=== PATIENT | male | born 1935 | race Caucasian/White ===

== ENCOUNTER → 2018-07-25 03:04 | Emergency (ER) | payer MEDICARE, OTHER ==
[~2018-07-25 03:04] MED LIST: Silver Nitrate/Potassium Nitr* 1 EA STICK ONE; Silver Nitrate/Potassium Nitr* 1 EA STICK TOPICAL ONE; cloNIDine TAB* 0.1 MG PO ONE; hydrALAZINE IV* 20 MG/ML VIAL IV SLOW PU ONE
--- NOTE | 2018-07-25 03:40 | ED ---
Complex/Multi-Sys Presentation - HPI Summary HPI Summary: This patient is an 82 year old M presenting to [facility] with a chief complaint of coughing up blood clots since 1 day ago. The patient notes that it looked like dense blood and not bloody sputum. The patient notes that 2 days ago fell walking up the stairs and hit his head. Patient denies LOC. The patient notes that he did not seek medical treatment following the injury. The patient rates the pain 0/10 in severity. Symptoms aggravated by nothing. Symptoms alleviated by nothing. Patient reports SOB with exertion, sore throat that has resolved, and ability to urine Patient takes Coumadin. Patient has hx of PE, atrial flutter, HTN, and chronic renal insufficiency. - History Of Current Complaint Chief Complaint: EDHeadInjury Time Seen by Provider: 07/25/18 03:17 Hx Obtained From: Patient Onset/Duration: Gradual Onset, Lasting Days - 1 day, Still Present Timing: Days - 1 day Aggravating Factor(s): nothing Alleviating Factor(s): nothing Associated Signs And Symptoms: Positive: SOB, Cough, Hemoptysis. Negative: Dysuria - Allergies/Home Medications Allergies/Adverse Reactions: Allergies Allergy/AdvReac Type Severity Reaction Status Date / Time No Known Allergies Allergy Verified 07/25/18 03:11 Home Medications: Home Medications Calcitriol 0.25 mcg PO DAILY 07/25/18 [History Confirmed 07/25/18] Carvedilol 1.5 tab PO BID 07/25/18 [History Confirmed 07/25/18] Sodium Citrate/Citric Acid* [Bicitra*] 15 ml PO PCHS 07/25/18 [History Confirmed 07/25/18] dilTIAZem HCl [Cartia Xt] 240 mg PO DAILY 07/25/18 [History Confirmed 07/25/18] PMH/Surg Hx/FS Hx/Imm Hx Endocrine/Hematology History: Denies: Hx Anemia, Hx Unexplained Bleeding Cardiovascular History: Reports: Hx Hypertension Denies: Hx Aneurysm, Hx Angina, Hx Angioplasty, Hx Auto Implanted Cardiovert Defib, Hx Cardiac Arrest, Hx Cardiomegaly, Hx Congenital Heart Disease, Hx Congestive Heart Failure, Hx Coronary Artery Disease, Hx Deep Vein Thrombosis, Hx Embolism, Hx Hypercholesterolemia, Hx Hypotension, Hx Pacemaker/ICD, Hx Peripheral Vascular Disease, Hx Rheumatic Fever, Hx Syncope, Hx Valvular Heart Disease Comment Only: Other Cardiovascular Problems/Disorders - A FLUTTER History: Reports: Other Problems/Disorders - CKD, BPH Musculoskeletal History: Reports: Hx Back Problems Sensory History: Reports: Hx Contacts or Glasses Denies: Hx Cataracts, Hx Eye Injury, Hx Eye Prosthesis, Hx Glaucoma, Hx Legally Blind, Hx Macular Degeneration, Hx Vision Problem, Hx Deafness, Hx Hearing Aid, Hx Hearing Problem Opthamlomology History: Reports: Hx Contacts or Glasses Denies: Hx Cataracts, Hx Eye Injury, Hx Eye Prosthesis, Hx Glaucoma, Hx Legally Blind, Hx Macular Degeneration, Hx Vision Problem Neurological History: Reports: Hx Migraine Denies: Hx Dementia, Hx Developmental Delay, Hx Headaches, Hx Nerve Disease, Hx Seizures, Hx Spinal Cord Injury, Hx Transient Ischemic Attacks (TIA) - Immunization History Date of Tetanus Vaccine: Date of Influenza Vaccine: up to date Infectious Disease History: No Infectious Disease History: Denies: Hx Clostridium Difficile, Hx Hepatitis, Hx Human Immunodeficiency Virus (HIV), Hx of Known/Suspected MRSA, Hx Shingles, Hx Tuberculosis, Hx Known/ Suspected VRE, Hx Known/Suspected VRSA, Traveled Outside the [place] in Last 30 Days - Family History Known Family History: Negative: Blood Disorder - Social History Alcohol Use: Occasionally Alcohol Amount: 3-4 glasses of wine per week Substance Use Type: Reports: None Smoking Status (MU): Never Smoked Tobacco Have You Smoked in the Last Year: No Review of Systems Negative: Fever Positive: Sore Throat Positive: Shortness Of Breath, Cough, Other - hemoptysis Negative: Vomiting Negative: dysuria All Other Systems Reviewed And Are Negative: Yes Physical Exam - Summary Physical Exam Summary: VITAL SIGNS: Reviewed. GENERAL: Patient is a well-developed and nourished MALE who is lying comfortable in the stretcher. Patient is not in any acute respiratory distress. HEAD AND FACE: No signs of trauma. No ecchymosis, hematomas or skull depressions. No sinus tenderness. EYES: PERRLA, EOMI x 2, No injected conjunctiva, no nystagmus. EARS: Hearing grossly intact. Ear canals and tympanic membranes are within normal limits. MOUTH: Oropharynx within normal limits. Superficial ulcer on the soft palate with very slight oozing of blood NECK: Supple, trachea is midline, no adenopathy, no JVD, no carotid bruit, no c- spine tenderness, neck with full ROM. CHEST: Symmetric, no tenderness at palpation LUNGS: Clear to auscultation bilaterally. No wheezing or crackles. CVS: Regular rate and rhythm, S1 and S2 present, no gallops appreciated. 2/6 systolic murmur over left sternal border ABDOMEN: Soft, non-tender. No signs of distention. No rebound no guarding, and no masses palpated. Bowel sounds are normal. EXTREMITIES: FROM in all major joints, no edema, no cyanosis or clubbing. NEURO: Alert and oriented x 3. No acute neurological deficits. Speech is normal and follows commands. GCS 15 SKIN: Dry and warm Triage Information Reviewed: Yes Vital Signs On Initial Exam: Initial Vitals Temp Pulse Resp BP Pulse Ox 98.1 F 68 16 177/82 98 07/25/18 03:05 07/25/18 03:05 07/25/18 03:05 07/25/18 03:05 07/25/18 03:05 Vital Signs Reviewed: Yes Diagnostics - Vital Signs Vital Signs Temp Pulse Resp BP Pulse Ox 07/25/18 03:05 98.1 F 68 16 177/82 98 - Laboratory Result Diagrams: 07/25/18 04:03 07/25/18 04:03 Lab Statement: Any lab studies that have been ordered have been reviewed, and results considered in the medical decision making process. - Radiology CXR Radiology Interpretation Completed By: ED Physician - Dr. Viramontes, pending official report Summary of Radiographic Findings: no acute process - CT CT Brain CT Interpretation Completed By: Radiologist Summary of CT Findings: Cerebral atrophy. Dr. Viramontes has reviewed this report. CT Maxillofacial CT Interpretation Completed By: Radiologist Summary of CT Findings: no acute fracture. Dr. Viramontes has reviewed this report. Complex Multi-Symp Course/Dx Course Of Treatment: This patient is an 82 year old M with hx of PE, atrial flutter, HTN, and chronic renal insufficiency presenting to [facility] with a chief complaint of coughing up blood clots since 1 day ago. The patient notes that it looked like dense blood and not bloody sputum. The patient notes that 2 days ago fell walking up the stairs and hit his head. Patient denies LOC. Patient reports SOB with exertion, sore throat that has resolved, and ability to urine Patient takes Coumadin. CXR reveals, per ED physician, no acute process. CT Brain reveals, per radiologist, cerebral atrophy. CT Maxillofacial reveals, per radiologist, no acute fracture. ED physician has reviewed these radiology reports. Labs and UA obtained. In the ED course the patient was given Catapres, Apresoline, and silver nitrate. Patient is anemia however more or less he is at his baseline. Patient had a small ulcer to his soft palate which I cauterized with silver nitrate. Unable to get CT with IV contrast due to patients kidney condition. Patient will be discharged home with follow up from Dr. Michel, [employer], concerning his anemia, CT, and possible tx with Epogen. Patient will contact him today. The patient is agreeable with this plan. Dx chronic renal insufficiency and hemoptysis. - Diagnoses Provider Diagnoses: Chronic renal insufficiency, Hemoptysis Discharge - Sign-Out/Discharge Documenting (check all that apply): Patient Departure - discharge home Patient Received Moderate/Deep Sedation with Procedure: No - Discharge Plan Condition: Stable Disposition: HOME Patient Education Materials: Hemoptysis (ED) Referrals: Kizzy Villatoro MD [Primary Care Provider] - Kahlil Michel MD [Medical Doctor] - 1 Day Additional Instructions: Follow up with Dr. Michel in 1-2 days. Return to the emergency department recurrence of coughing up blood. - Attestation Statements Document Initiated by Scribe: Yes Documenting Scribe: Daisy Angel Provider For Whom Silva is Documenting (Include Credential): Brandon Viramontes MD Scribe Attestation: Daisy Starks, scribed for Brandon Viramontes MD on 07/25/18 at 0550. Status of Scribe Document: Ready
[2018-07-25 04:12] LABS: ABS Basophils 0.1 10^3/ul (0-0.2); ABS Eosinophils 0.4 10^3/ul (0-0.6); ABS Lymphocytes 1.2 10^3/ul (1.0-4.8); ABS Monocytes 0.8 10^3/ul (0-0.8); ABS Neutrophils 4.1 10^3/ul (1.5-7.7); ABS Nucleated RBC 0 10^3/ul; Eosinophil % 6.7 %; Hematocrit 21 % (36-46); Hemoglobin 6.9 g/dL (14.0-18.0); Lymphocyte % 18.5 %; Mean Corpuscular HGB Conc 33 g/dL (31-36); Mean Corpuscular Hemoglobin 31 pg (27-31); Mean Corpuscular Volume 94 fL (80-94); Nucleated Red Blood Cells % 0; Platelet Count 174 10^3/uL (150-450); Red Blood Count 2.24 10^6 /uL (4.18-5.48); Red Cell Distribution Width 15 % (10.5-15); White Blood Count 6.7 10^3/uL (3.5-10.8)
[2018-07-25 04:29] LABS: Albumin 2.5 g/dL (3.2-5.2); Albumin/Globulin Ratio 0.8 (1-3); BUN/Creatinine Ratio 7.8 (8-20); Calcium 7.8 mg/dL (8.6-10.3); EGFR African American 8.2 (>60); EGFR Non-African American 6.8 (>60); Globulin 3.1 g/dL (2-4); Magnesium 1.9 mg/dL (1.9-2.7); Potassium 4.4 mmol/L (3.5-5.0); Total Bilirubin 0.2 mg/dL (0.2-1.0); Total Protein 5.6 g/dL (6.4-8.9)
[2018-07-25 04:45] LABS: Activated Partial Thrombo Time 44.6 seconds (26.0-36.3); INR 2.1 (0.77-1.02)
[2018-07-25 06:10] VITALS: BP 141/66
== END | disposition home or self-care (01) ==
LOC: ED 03:04
DX: R04.2 Hemoptysis (principal); I12.9 Hypertensive chronic kidney disease with stage 1 through stage 4 chronic kidney disease, or unspecified chronic kidney disease; N18.9 Chronic kidney disease, unspecified; Z86.711 Personal history of pulmonary embolism
CPT/HCPCS: 36415; 70450; 70486; 71045; 80053; 83735; 85025; 85610; 85730; 96374; 96375; 96376; 99284; A9270-GY; J0360

== ENCOUNTER → 2018-11-05 10:49 | Day surgery (SDC) | payer MEDICARE, OTHER ==
--- NOTE | 2018-09-12 17:21 | HP ---
CC: Dr. Michel; [facility] * ADMISSION HISTORY AND PHYSICAL: DATE OF ADMISSION: 09/17/18 ATTENDING SURGEON: Dr. Shahid Atkins * (OSVALDO Hull dictating). CHIEF COMPLAINT: End-stage renal disease. HISTORY OF PRESENT ILLNESS: This is an 82-year-old male who has had gradual decline in renal function over the past 8 to 9 years. This has accelerated in the past year or so with recent symptomatology including dyspnea on exertion and increase in edema. See separate consult from Dr. Michel. He was referred for consideration of peritoneal dialysis catheter placement. He was seen by Dr. Atkins on 09/08/18. He has not had any prior abdominal surgeries. Dr. Atkins has discussed with him the indications, risks, benefits, and alternatives of the procedure and he would like to proceed as scheduled with laparoscopic placement of peritoneal dialysis catheter. PAST MEDICAL HISTORY: Chronic kidney disease (stage 5), chronic atrial flutter with associated PE approximately 5 years ago (on chronic anticoagulation), hypertension, chronic anemia. PAST SURGICAL HISTORY: His only past surgical procedure was wisdom teeth extraction. CURRENT MEDICATIONS: 1. Lasix 40 mg once daily. 2. Cytra-2 oral solution 500-334/5 mL, 15 mL t.i.d. 3. Coumadin 2.5 mg 1 tablet q. Saturday, Saturday and Saturday; one half tablet all other days. 4. Diltiazem extended release 180 mg once daily. 5. Carvedilol 6.25 mg b.i.d. 6. Rosuvastatin 5 mg daily. 7. Amlodipine 10 mg daily. 8. Calcitriol 0.25 mcg daily. 9. Aranesp injection q. month. DRUG ALLERGIES: None known. FAMILY HISTORY: Negative for anesthesia problems, bleeding, or clotting disorders. SOCIAL HISTORY: The patient lives with his daughter, who accompanies him today. He denies use of tobacco and drinks between 2-3 drinks per month, though none of late. REVIEW OF SYSTEMS: General: No recent constitutional symptoms or acute illnesses other than described above. See also Dr. Michel's consult note and Dr. Mitchell's most recent attached note. HEENT: No recent problems or changes noted. Cardiovascular: See Dr. Mitchell's note. He was scheduled for followup echocardiogram and Holter monitor, but because of scheduling conflicts, these were cancelled. Respiratory: Dyspnea on exertion, i.e., after one flight of stairs. He is able to walk on a level for 1 block without significant dyspnea. GI: No problems reported. He did undergo Cologuard testing within the past year. : As above. He has nocturia x3. He is followed by Dr. Anderson. Endocrine: No diabetes or thyroid dysfunction. PHYSICAL EXAMINATION GENERAL: Well-nourished, mildly obese male, in no acute distress. VITAL SIGNS: Height 72 inches, weight 205 pounds. Temperature 98.1, blood pressure 130/50, pulse 84, respirations 16. HEENT: Pupils are equal and round, reactive. EOMs intact. Mild conjunctival pallor. Oropharynx: Teeth in good repair. No intraoral lesions. NECK: No lymphadenopathy, thyromegaly, or masses. LUNGS: Upper medrano clear to auscultation as well as left base. There are decreased breath sounds at the right base (most recent chest x-ray per Dr. Mitchell's note was mid August showing some atelectasis versus scarring). HEART: Regular rate and rhythm. There is a soft systolic murmur heard best at both left upper and right sternal borders likely most consistent with aortic stenosis (see Dr. Mitchell's notes). ABDOMEN: Mildly obese, soft, nontender to palpation. No palpable masses or organomegaly. GENITALIA AND RECTAL: Not done per Dr. Atkins's note. No inguinal hernias. BACK: No spinous process or CVA tenderness. EXTREMITIES: He does have some edema of the left hand and both lower extremities 1 to 2+, right greater than left. I did not check distal pulses. NEUROLOGICAL: Grossly intact. SKIN: Warm and dry. No suspicious rashes or lesions noted. See also below for extremities. IMPRESSION: End-stage renal disease. PLAN: Laparoscopic placement of peritoneal dialysis catheter. OSVALDO HULL [id number]/[facility] #: [id number] MTDRodney
[~2018-11-05 10:49] MED LIST changes: +Atracurium* 10 MG/ML 10 ML VIAL ONE; +Buffered Lidocaine 1% SYRIN* 1 ML/SYRINGE INTRADERM ONE; +Bupivacaine 0.25% EPI 200,000* 30 ML SDV ONE; +Dexamethasone IV* 4 MG/ML 1 ML (4 MG) ONE; +Glycopyrrolate IV* 0.2 MG/ML 1 ML VIAL ONE; +Heparin DIALYSIS ONLY(*) 1,000 UNITS/ML VIAL ONE; +Lactated Ringers 1000 ML Bag* 1,000 ML IV SCH; +Ondansetron INJ* 2 MG/ML VIAL ONE; +Propofol* 10 MG/ML 20 ML BTL ONE; -Silver Nitrate/Potassium Nitr* 1 EA STICK ONE; -Silver Nitrate/Potassium Nitr* 1 EA STICK TOPICAL ONE; +ceFAZolin 2 GM in NS PREMIX(*) 2 GM/100 ML BAG IVPB ONE; -cloNIDine TAB* 0.1 MG PO ONE; +fentaNYL* 50 MCG/ML 2 ML VIAL (100 MCG VIAL) ONE; -hydrALAZINE IV* 20 MG/ML VIAL IV SLOW PU ONE
[2018-11-05 18:35] VITALS: BP 181/76
--- NOTE | 2018-11-05 23:17 | OP ---
CC: Dr. Kahlil Michel; Lexa Garner * DATE OF OPERATION: 11/05/18 - [facility] DATE OF : 35 SURGEON: Shahid Atkins MD VISUAL ARTIST: , PA Student. ANESTHESIOLOGIST: Dr. Cronin. ANESTHESIA: General. PRE-OP DIAGNOSIS: End-stage renal disease. POST-OP DIAGNOSIS: End-stage renal disease. OPERATIVE PROCEDURE: Laparoscopic placement of peritoneal dialysis catheter, omentopexy. SPECIMEN: None. TUBING: A 62 cm Curl Cath Covidien catheter inserted. ESTIMATED BLOOD LOSS: Minimal. FLUIDS: Minimal crystalloid fluid given. DESCRIPTION OF PROCEDURE: The patient was identified in the preoperative area. A consent was signed. The patient was marked including the belt line and the planned exit site for the dialysis catheter. He was then taken to the operating room, placed on the operating table in the supine position. Preoperative antibiotics were given. Sequential devices were placed on bilateral extremities. General anesthesia was induced. The patient's abdomen was prepped and draped in a standard surgical fashion and a time-out was performed. An incision was made at the Cho point in the left upper quadrant. This was deepened down to the anterior fascia, which was elevated and a Veress needle inserted into the abdominal cavity, which was then allowed to insufflate to a pressure of 15 mmHg. The patient tolerated the insufflation well. An 8 mm Optiview trocar was then inserted and Veress needle was removed. Review of the abdomen showed scant free fluid in the pelvis. Small bowel appeared unremarkable. The omentum was large and extended towards the pelvis and I felt this would be best to do omentopexy and this was performed with a 0- Polysorb suture using an Endoclose device at the right upper quadrant. Next, with our 5 mm trocar already in the left lower quadrant, we then placed the tubing through the 8-mm trocar into the abdomen, this was 62 cm Curl cath. We then placed the working end into the deep pelvis and tracked the 5-mm trocar along the left rectus muscle, grasped the tubing and then brought it out through this incision, taking care that the both cuffs were in the abdominal wall with the distal cuff just above the peritoneum. Next, the tubing was then tunneled superiorly and inferiorly through the chosen site where the 5 mm trocar had also been inserted. This trocar was of course removed with the catheter in place. We then hooked it up to the dialysate, which flowed freely and also exited freely. This was nonbloody. The abdomen was allowed to collapse. Trocars were removed under direct vision and we closed the incisions with 4-0 Monocryl subcuticular sutures, followed by Steri- Strips and sterile dressing. The patient tolerated the procedure well and was transferred to the PACU in stable condition. [id number]/[facility] #: [id number] MTDD
== END | disposition home or self-care (01) ==
LOC: OR 10:49
PROVIDERS: ATTEND Surgery
DX: N18.6 End stage renal disease (principal); I48.92 Unspecified atrial flutter; Z86.711 Personal history of pulmonary embolism; Z79.01 Long term (current) use of anticoagulants; I10 Essential (primary) hypertension; D64.9 Anemia, unspecified; E78.5 Hyperlipidemia, unspecified
CPT/HCPCS: J0690; J1100; J1644; J2405; J2704; J3010

== ENCOUNTER 2019-06-10 16:33 | Inpatient (IN) | payer MEDICARE, OTHER ==
--- NOTE | 2019-06-10 19:05 | ED ---
GI/ HPI - HPI Summary HPI Summary: 83 year old MF arriving from dialysis center complains of worsening fatigue, weakness, shortness of breath since Dec 2018. He has been receiving peritoneal dialysis at home since Dec 2018. Hx low Hgb values. Usually Hgb around 9 but it has been decreasing. Has had blood transfusion done in the past. Hx upper GI bleed. Had endoscopy done Saturday06/08/[address] Trinh which showed bleeding in stomach lining. Was put on omeprazole. Had positive occult stool then too. No visible blood in stools. Symptoms aggravated by exertion. Symptoms alleviated by nothing. Medications reviewed. On Coumadin for PE. - History of Current Complaint Chief Complaint: EDGIBleed Time Seen by Provider: 06/10/19 18:49 Stated Complaint: LOW HEMOGLOBIN PER PT Hx Obtained From: Patient Onset/Duration: Started Weeks Ago - Dec 2018, Still Present Timing: Intermittent Current Severity: None Pain Intensity: 0 Aggravating Factor(s): Walking/Exertion Alleviating Factor(s): Nothing - Allergy/Home Medications Allergies/Adverse Reactions: Allergies Allergy/AdvReac Type Severity Reaction Status Date / Time No Known Allergies Allergy Verified 06/10/19 16:39 Home Medications: Home Medications Rosuvastatin (NF) [Crestor (NF)] 5 mg PO BEDTIME 09/10/18 [History Confirmed 07/26] Warfarin Sodium 2.5 mg PO 1700 09/10/18 [History Confirmed 06/10/19] Warfarin TAB(*) [Coumadin TAB(*)] 1.75 mg PO 1700 09/10/18 [History Confirmed ] dilTIAZem HCl [Cartia Xt] 180 mg PO QAM 10/31/18 [History Confirmed 06/10/19] Metoprolol Succinate XL TAB* [Toprol XL TAB*] 50 mg PO DAILY 06/08/19 [History Confirmed 06/10/19] Omeprazole 40 mg PO Q24HR 06/10/19 [History Confirmed 06/10/19] PMH/Surg Hx/FS Hx/Imm Hx Endocrine/Hematology History: Denies: Hx Anemia, Hx Unexplained Bleeding Cardiovascular History: Reports: Hx Hypertension - CONTROLLED, Other Cardiovascular Problems/Disorders - A FLUTTER Denies: Hx Aneurysm, Hx Angina, Hx Angioplasty, Hx Auto Implanted Cardiovert Defib, Hx Cardiac Arrest, Hx Cardiomegaly, Hx Congenital Heart Disease, Hx Congestive Heart Failure, Hx Coronary Artery Disease, Hx Deep Vein Thrombosis, Hx Embolism, Hx Hypercholesterolemia, Hx Hypotension, Hx Pacemaker/ICD, Hx Peripheral Vascular Disease, Hx Rheumatic Fever, Hx Syncope, Hx Valvular Heart Disease Respiratory History: Reports: Hx Pulmonary Embolism History: Reports: Other Problems/Disorders - CKD, BPH Musculoskeletal History: Reports: Hx Back Problems Sensory History: Reports: Hx Contacts or Glasses - GLASSES Denies: Hx Cataracts, Hx Eye Injury, Hx Eye Prosthesis, Hx Glaucoma, Hx Legally Blind, Hx Macular Degeneration, Hx Vision Problem, Hx Deafness, Hx Hearing Aid, Hx Hearing Problem Opthamlomology History: Reports: Hx Contacts or Glasses - GLASSES Denies: Hx Cataracts, Hx Eye Injury, Hx Eye Prosthesis, Hx Glaucoma, Hx Legally Blind, Hx Macular Degeneration, Hx Vision Problem Neurological History: Denies: Hx Dementia, Hx Developmental Delay, Hx Headaches, Hx Migraine, Hx Nerve Disease, Hx Seizures, Hx Spinal Cord Injury, Hx Transient Ischemic Attacks (TIA) Psychiatric History: Reports: Hx Anxiety - Cancer History Hx Chemotherapy: No - Surgical History Surgery Procedure, Year, and Place: wisdom teeth Hx Anesthesia Reactions: No - Immunization History Date of Tetanus Vaccine: unknown Date of Influenza Vaccine: up to date Infectious Disease History: No Infectious Disease History: Denies: Hx Clostridium Difficile, Hx Hepatitis, Hx Human Immunodeficiency Virus (HIV), Hx of Known/Suspected MRSA, Hx Shingles, Hx Tuberculosis, Hx Known/ Suspected VRE, Hx Known/Suspected VRSA, Traveled Outside the [place] in Last 30 Days - Family History Known Family History: Positive: Other - NEG: colon CA - Social History Alcohol Use: Occasionally Alcohol Amount: 3-4 glasses of wine per week Substance Use Type: Reports: None Hx Tobacco Use: No Smoking Status (MU): Never Smoked Tobacco Have You Smoked in the Last Year: No Review of Systems Positive: Fatigue Positive: Shortness Of Breath Gastrointestinal: Negative - blood in stool Positive: Weakness All Other Systems Reviewed And Are Negative: Yes Physical Exam - Summary Physical Exam Summary: Constitutional: Well-developed, Well-nourished, Alert. (-) Distressed Skin: Warm, Dry HENT: Normocephalic; Atraumatic Eyes: Pale conjunctiva Neck: Musculoskeletal ROM normal neck. (-) JVD, (-) Stridor, (-) Nuchal rigidity Cardio: Rhythm regular, rate normal, Heart sounds normal; Intact distal pulses; Radial pulses are 2+ and symmetric. Systolic ejection murmur Pulmonary/Chest wall: Effort normal. (-) Respiratory distress, (-) Wheezes, (-) Rales Abd: Soft, (-) tenderness, (-) Distension, (-) Guarding, (-) Rebound Musculoskeletal: (-) Edema Lymph: (-) Cervical adenopathy Neuro: Alert, Oriented x3 Psych: Mood and affect Normal Triage Information Reviewed: Yes Vital Signs On Initial Exam: Initial Vitals Temp Pulse Resp BP Pulse Ox 97.8 F 71 18 144/53 95 06/10/19 16:36 06/10/19 16:36 06/10/19 16:36 06/10/19 16:36 06/10/19 16:36 Vital Signs Reviewed: Yes Procedures - Sedation Patient Received Moderate/Deep Sedation with Procedure: No Diagnostics - Vital Signs Vital Signs Temp Pulse Resp BP Pulse Ox 06/10/19 18:08 98.4 F 72 16 151/66 95 06/10/19 16:36 97.8 F 71 18 144/53 95 - Laboratory Result Diagrams: 06/11/19 17:58 06/11/19 05:44 Lab Statement: Any lab studies that have been ordered have been reviewed, and results considered in the medical decision making process. Re-Evaluation - Re-Evaluation First Eval Re-Evaluation Time: 19:23 Comment: aware of Hgb 6.1 Second Eval Re-Evaluation Time: 19:31 Comment: patient agrees to admission GIGU Course/Dx - Course Course Of Treatment: 83 y/o male w ESRD on home PD p/w fatigue and anemia. - Hb 6.1, baseline around 9. No active bleeding. Recent workup and endoscopy w upper GIB. Type and screen sent, can be transfused one unit overnight w dialysis tomorrow as per nephrology who discussed w admitting team - Diagnoses Provider Diagnoses: Anemia, ESRD (end stage renal disease) - Physician Notifications Discussed Care Of Patient With: Theodore Bond Time Discussed With Above Provider: 19:23 Instructed by Provider To: Admit As Inpatient Discharge ED - Sign-Out/Discharge Documenting (check all that apply): Patient Departure - Discharge Plan Condition: Stable Disposition: ADMITTED TO [facility] - Billing Disposition and Condition Condition: STABLE Disposition: Admitted to [facility] - Attestation Statements Document Initiated by Jonnyibsamantha: Yes Documenting Scribe: Shaylee Patterson Provider For Whom Silva is Documenting (Include Credential): Narcisa Arriola MD Scribe Attestation: IShaylee, scribed for Narcisa Arriola MD on 06/11/19 at 2042. Scribe Documentation Reviewed: Yes Provider Attestation: The documentation as recorded by the jonnyibShaylee singh accurately reflects the service I personally performed and the decisions made by , Narcisa Arriola MD Status of Scribe Document: Viewed
[2019-06-10 19:21] LABS: ABS Basophils 0.1 10^3/ul (0-0.2); ABS Eosinophils 0.3 10^3/ul (0-0.6); ABS Lymphocytes 1.4 10^3/ul (1.0-4.8); ABS Neutrophils 5.9 10^3/ul (1.5-7.7); Eosinophil % 3.2 %; Hematocrit 18 % (42-52); Hemoglobin 6.1 g/dL (14.0-18.0); Lymphocyte % 16.1 %; Mean Corpuscular HGB Conc 34 g/dL (31-36); Mean Corpuscular Hemoglobin 33 pg (27-31); Mean Corpuscular Volume 96 fL (80-94); Mean Platelet Volume 7.7 fL (7.4-10.4); Platelet Count 264 10^3/uL (150-450); Red Blood Count 1.86 10^6 /uL (4.18-5.48); Red Cell Distribution Width 16 % (10-15); White Blood Count 8.7 10^3/uL (3.5-10.8)
[2019-06-10 19:26] LABS: Albumin 3.2 g/dL (3.2-5.2); Albumin/Globulin Ratio 0.8 (1-3); Calcium 8.6 mg/dL (8.6-10.3); EGFR African American 5.3 (>60); EGFR Non-African American 4.4 (>60); Globulin 3.8 g/dL (2-4); INR 2.39 (0.82-1.09); Potassium 4.4 mmol/L (3.5-5.0); Total Bilirubin 0.3 mg/dL (0.2-1.0)
[2019-06-10] MEDS ORDERED: Acetaminophen TAB* 325 MG PO PRN (20:00)
[2019-06-10] MEDS: Pantoprazole IV* 40 MG IV SCH (21:51)
[2019-06-10] MEDS: Atorvastatin* 10 MG TAB PO SCH (21:51)
--- NOTE | 2019-06-10 22:13 | HP ---
CC: Dr. Sadler; Dr. Lockwood; Dr. Villatoro* HISTORY AND PHYSICAL: DATE OF ADMISSION: 06/10/19 PROVIDER: Yvonne Thibodeaux NP. PRIMARY CARE PROVIDER: Dr. Villatoro. ATTENDING PHYSICIAN WHILE IN THE HOSPITAL: Dr. Theodore Bond* (dictated by Yvonne Thibodeaux NP). CHIEF COMPLAINT: Anemia. HISTORY OF PRESENT ILLNESS: Mr. Vegas is an 83-year-old male with past medical history significant for end-stage renal disease, on peritoneal dialysis, history of A-flutter, history of pulmonary embolism 5 years ago, chronic anemia , on chronic Coumadin, who presented to the emergency room from a routine appointment with dialysis due to low H and H. The patient reports that on Saturday he had an upper endoscopy done by Dr. Trinh. At that time, it was noted to have bleeding in the stomach lining. At that time, he was started on omeprazole 40 mg p.o. daily. The patient reports over the past couple of days he has had progressively worsening shortness of breath and lightheadedness associated with standing and walking. The patient reports that he will walk a short distance and will have to sit down and catch his breath and it takes a few minutes for his symptoms to resolve before he can resume his activities. The patient reports that today while at dialysis routine followup, he mentioned these symptoms. They did lab work and found him to have a hemoglobin of 6 and 18. Due to the those findings, he was sent to the emergency room for further evaluation. The patient does report that he has had some dark stools over the past 1 to 2 days but not consistent. He denies any bright red blood from the rectum. He denies any chest pain. He denies any recent fever, chills, unintended weight loss. Denies any cough, hemoptysis. He denies any nausea, vomiting, diarrhea, abdominal pain, hematuria, or dysuria. He denies any focal weakness, sensory loss, dysphagia, arthralgias, myalgias, rashes, lesions, open sores. While in the emergency room, the patient had routine lab work drawn. He was found to have an H and H of 6.1 and 18. Due to these findings, Hospital Medicine was asked to see and evaluate him for admission. PAST MEDICAL HISTORY: Significant for end-stage renal disease, on peritoneal dialysis; atrial flutter, on chronic Coumadin; history of pulmonary embolism, again on chronic Coumadin therapy; history of hypertension; history of anemia. PAST SURGICAL HISTORY: Significant for insertion of peritoneal dialysis catheter, wisdom tooth extraction. HOME MEDICATIONS: Include: 1. Diltiazem 180 mg p.o. daily. 2. Omeprazole 40 mg p.o. daily. 3. Coumadin 1.75 mg alternating with 2.5 mg. 4. Rosuvastatin 5 mg p.o. at bedtime. 5. Metoprolol 50 mg p.o. daily. 6. Sevelamer carbonate 800 mg 2 tablets with meals. ALLERGIES: No known drug allergies. FAMILY HISTORY: No reported history of coronary artery disease or diabetes. Mother with lymph node type cancer, unknown exact type. Father with melanoma with metastasis to the lungs per the patient. SOCIAL HISTORY: The patient denies any tobacco, alcohol, or illicit drug use. He is . He lives with his daughter. Surrogate decision maker in the event he is unable to make his own decision is his daughter. He is a full code. REVIEW OF SYSTEMS: A 14-point review of systems was completed. All pertinent positives were mentioned in the HPI. PHYSICAL EXAMINATION GENERAL: At this time, Mr. Vegas is alert and oriented, resting on the stretcher in the emergency room. He is in no acute distress. His color is sallow. VITAL SIGNS: Blood pressure was 151/66, heart rate is 72, respirations 16, O2 saturation 95%, temperature is 98.4. HEENT: Head is atraumatic, normocephalic. Eyes: EOMs are intact. Sclerae anicteric and not pale. Oral mucosa is moist. NECK: Supple. LUNGS: Clear to auscultation bilaterally. No wheezes, rales, or rhonchi. CARDIAC: S1, S2. Regular rate and rhythm. No rubs or gallops. ABDOMEN: Soft and nontender. Bowel sounds are present x4. EXTREMITIES: He is able to move all 4 extremities. There is no clubbing or cyanosis. NEUROLOGIC: He is awake, alert, oriented x3. Speech is clear. Thought process is intact. SKIN: Intact. DIAGNOSTIC STUDIES/LAB DATA: WBCs are 8.7, RBCs 1.86, hemoglobin 6.1, hematocrit is 18, platelet count is 264. INR is 2.39. Sodium 138, potassium 4.4, chloride 99, carbon dioxide was 24, anion gap of 15, BUN 67, creatinine 11.16, glucose was 106, calcium 8.6. ASTs were 13, ALTs were 11, alkaline phosphatase was 60. ASSESSMENT AND PLAN: Mr. Vegas is an 83-year-old male with a past medical history significant for end-stage renal disease, on hemodialysis, history of atrial flutter and pulmonary embolism, on chronic anticoagulation with Coumadin , hypertension, history of chronic anemia, who presented to the emergency room with worsening anemia sent from routine appointment at dialysis. The patient will be admitted under observation for: 1. Profound anemia: The patient does have an H and H of 6.1 and 20. The patient has had a recent upper endoscopy on 06/08/19. At that time, he was found to have bleeding in the stomach and was started on omeprazole 40 mg p.o. daily. The patient's H and H today is 6.1 and 18. I will give him a unit of packed red blood cells. I did perform a rectal exam, which had medium brown stool. No bright red blood. I will send a stool for occult. He will be placed on Protonix 40 mg IV twice daily. I spoke to Dr. Lockwood from Gastroenterology. The patient will be placed on clear liquids, nothing by mouth after midnight for repeat upper endoscopy tomorrow. We will repeat a CBC in the a.m. The patient can have a second unit of packed red blood cells after he is able to start peritoneal dialysis in the morning per Dr. Sadler. 2. End-stage renal disease: The patient does do daily peritoneal dialysis. I did speak to Dr. Sadler from Nephrology, who has agreed with transfusing 1 unit of packed red blood cells overnight slowly over 4 hours and then we will give a second unit in the morning after the patient is able to start peritoneal dialysis. Dr. Sadler says someone from dialysis will be over to hook Mr. Vegas up to his peritoneal dialysis tomorrow morning. 3. History of atrial flutter: The patient should continue on Cardizem and metoprolol as previously prescribed. I am going to hold his Coumadin due to his bleeding and anemia. I would recommend a consultation to cardiology in regards to his anticoagulation as the patient continues to have upper gastrointestinal bleeding. 4. Hypertension: The patient should continue on Cardizem and metoprolol as previously prescribed. 5. FEN: He can have a clear liquid diet and he will be nothing by mouth after midnight. 6. Code status: He is a full code. 7. DVT prophylaxis: I will place him on sequential compression devices. TIME SPENT: Time spent on this admission was 60 minutes, greater than half that time was spent at the bedside reviewing events leading thus far to his hospitalization, performing physical exam, and reviewing my plan of care. I have discussed this with my attending, Dr. Theodore Bond; he is in agreement with my plan. YVONNE THIBODEAUX, MARLO [id number]/[facility] #: [id number] [facility]
[2019-06-11 06:25] LABS: ABS Basophils 0.1 10^3/ul (0-0.2); ABS Eosinophils 0.3 10^3/ul (0-0.6); ABS Lymphocytes 1.2 10^3/ul (1.0-4.8); ABS Monocytes 0.9 10^3/ul (0-0.8); ABS Neutrophils 4.1 10^3/ul (1.5-7.7); Eosinophil % 5.3 %; Hematocrit 18 % (42-52); Hemoglobin 6.1 g/dL (14.0-18.0); Lymphocyte % 17.6 %; Mean Corpuscular HGB Conc 35 g/dL (31-36); Mean Corpuscular Hemoglobin 32 pg (27-31); Mean Corpuscular Volume 93 fL (80-94); Mean Platelet Volume 7.9 fL (7.4-10.4); Platelet Count 187 10^3/uL (150-450); Red Blood Count 1.92 10^6 /uL (4.18-5.48); Red Cell Distribution Width 17 % (10-15); White Blood Count 6.6 10^3/uL (3.5-10.8)
[2019-06-11 06:43] LABS: BUN/Creatinine Ratio 6.1 (8-20); Calcium 8.1 mg/dL (8.6-10.3); EGFR African American 5.1 (>60); EGFR Non-African American 4.2 (>60); Potassium 4.8 mmol/L (3.5-5.0)
[2019-06-11] MEDS: Diltiazem CD CAP* 180 MG PO SCH ×2 (09:08→17:45)
[2019-06-11] MEDS: Metoprolol Succinate XL TAB* 50 MG PO SCH ×2 (09:08→17:45)
[2019-06-11] MEDS: Pantoprazole IV* 40 MG IV SCH ×2 (09:08→22:03)
--- NOTE | 2019-06-11 11:35 | PN ---
Subjective Date of Service: 06/11/19 Interval History: Patient has walked to the bathroom today and denies dizziness/lightheadedness during that time. Has had a BM which he describes as black. Denies chest pain, difficulty breathing, abd pain, nausea, fever/chills. Tells me he has never had indigestion or sxs of acid reflux. Objective Active Medications: Acetaminophen (Tylenol Tab*) 650 mg PO Q4H PRN PRN Reason: MILD PAIN or TEMP > 100.4 Atorvastatin Calcium (Lipitor*) 10 mg PO BEDTIME [facility]; Protocol Last Admin: 06/10/19 21:51 Dose: 10 mg Diltiazem HCl (Cardizem Cd Cap*) 180 mg PO QAM [facility] Last Admin: 06/11/19 09:08 Dose: 180 mg Metoprolol Succinate (Toprol Xl Tab*) 50 mg PO DAILY [facility] Last Admin: 06/11/19 09:08 Dose: 50 mg Pantoprazole Sodium (Protonix Iv*) 40 mg IV Q12H [facility] Last Admin: 06/11/19 09:08 Dose: 40 mg Vital Signs - 8 hr 06/11/19 06/11/19 03:32 07:45 Temperature 98.3 F 98.2 F Pulse Rate 69 72 Respiratory 16 16 Rate Blood Pressure 114/43 133/47 (mmHg) O2 Sat by Pulse 96 98 Oximetry Oxygen Devices in Use Now: None Appearance: Elderly white male, laying in hospital bed, appearing comfortable and in NAD Eyes: No Scleral Icterus, - - PERRL Ears/Nose/Mouth/Throat: Mucous Membranes Moist Neck: Trachea Midline Respiratory: Symmetrical Chest Expansion and Respiratory Effort, Clear to Auscultation Cardiovascular: RRR, - - systolic murmur grade 2-3 Abdominal: NL Sounds; No Tenderness; No Distention, - - PD site with clean/dry bandage in LLQ Extremities: No Edema, No Clubbing, Cyanosis Skin: No Rash or Ulcers Neurological: Alert and Oriented x 3 Result Diagrams: 06/11/19 17:58 06/11/19 05:44 Microbiology and Other Data: Microbiology 06/10/19 20:30 Stool Occult Blood (YUAN) - Final Stool Stool Occult Blood (YUAN) - Final Assess/Plan/Problems-Billing Assessment: 83 yo white male with PMHx ESRD (on PD since Dec 2018), atrai flutter (on coumadin), hx of PE, and HTN who presents due to anemia on routine blood work. - Patient Problems (1) UGIB (upper gastrointestinal bleed) Current Visit: Yes Status: Acute Code(s): K92.2 - GASTROINTESTINAL HEMORRHAGE, UNSPECIFIED SNOMED Code(s): 78788511 Comment: -had EGD on 06/08/2019 which demonstrated old and fresh blood at gastric lining, started on po PPI by Dr. Trinh -anemia continues to downtrend, did not improve after 1U PRBC yesterday (Hgb remained 6.1); transfusing additional unit PRBC today -repeat EGD today, appreciate GI consult, Dr. Block recs 1U FFP due to bleeding and elevated INR -continue IV protonix BID -monitor H&H (2) Acute blood loss anemia Current Visit: Yes Status: Acute Code(s): D62 - ACUTE POSTHEMORRHAGIC ANEMIA SNOMED Code(s): 462264854 Comment: -05/10 UGIB -received 1U PRBC at admission, ordering additional today -further mgmt as above (3) ESRD (end stage renal disease) Current Visit: Yes Status: Acute Code(s): N18.6 - END STAGE RENAL DISEASE SNOMED Code(s): 90495419 Comment: -on PD since dec 2018, will continue inpatient -per JARED Gotti to start transfusion prior to PD (planning on PD after transfusion completed) (4) Atrial flutter Current Visit: Yes Status: Acute Code(s): I48.92 - UNSPECIFIED ATRIAL FLUTTER SNOMED Code(s): 9727619 Comment: -on coumadin at home, held in setting of GIB -continue diltiazem and metoprolol -rate controlled -INR has trended up despite holding coumadin. Considering continued bleeding, will reverse with po vitamin K (5) HTN (hypertension) Current Visit: Yes Status: Acute Code(s): I10 - ESSENTIAL (PRIMARY) HYPERTENSION SNOMED Code(s): 54652046 Comment: -continue metoprolol and diltiazem -normotensive (6) History of pulmonary embolism Current Visit: Yes Status: Acute Code(s): Z86.711 - PERSONAL HISTORY OF PULMONARY EMBOLISM SNOMED Code(s): 413206371 Comment: -on coumadin at home, mgmt as above -history of one PE several years ago (7) Hyperlipidemia Current Visit: Yes Status: Acute Code(s): E78.5 - HYPERLIPIDEMIA, UNSPECIFIED SNOMED Code(s): 19562738 Comment: -continue statin (8) DVT prophylaxis Current Visit: Yes Status: Acute Code(s): Z29.9 - ENCOUNTER FOR PROPHYLACTIC MEASURES, UNSPECIFIED SNOMED Code(s): 860023974 Comment: -SCDs -chemoprophylaxis contraindicated in setting of anemia (9) Full code status Current Visit: Yes Status: Acute Code(s): Z78.9 - OTHER SPECIFIED HEALTH STATUS SNOMED Code(s): 898916859 Status and Disposition: inpatient
[2019-06-11] MEDS ORDERED: Phytonadione Oral Solution* 5 MG/25 ML UDC PO ONE (11:41)
--- NOTE | 2019-06-11 14:13 | CONSULT ---
Consult Consult: Reason for consultation: end-stage kidney disease need for peritoneal dialysis while hospitalized consulting provider: [facility] hospitalist trauma surgeon history of present illness: Patient is a very nice 83-year-old gentleman who has been admitted for GI bleed. He was seen in the PD clinic yesterday and his hemoglobin was found to be 6. Patient was symptomatic with shortness of breath with exertion. he was admitted through the emergency room. he has a previous history of GI bleed. He recently had an EGD and was found to have erosive gastritis as a source of bleeding. Regarding his peritoneal dialysis has been going well without any complications. He denies abdominal pain, cloudy PD fluid, nausea, vomiting, diarrhea. No chest pain or shortness of breath at rest. He still makes some urine 3-4 times a day. Generally blood pressure is well controlled. He has no loss of balance or tremor. Mood is normal. he is on chronic anticoagulation. Review of systems as above Home Medications Medication Instructions Recorded Confirmed Type Rosuvastatin (NF) [Crestor (NF)] 5 mg PO BEDTIME 09/10/18 06/10/19 History Warfarin Sodium 2.5 mg PO 1700 09/10/18 06/10/19 History Warfarin TAB(*) [Coumadin TAB(*)] 1.75 mg PO 1700 09/10/18 06/10/19 History dilTIAZem HCl [Cartia Xt] 180 mg PO QAM 10/31/18 06/10/19 History Metoprolol Succinate XL TAB* 50 mg PO DAILY 06/08/19 06/10/19 History [Toprol XL TAB*] Omeprazole 40 mg PO Q24HR 06/10/19 06/10/19 History PMH - End-stage kidney disease due to hypertension - Peritoneal dialysis - DVTs - GI bleed due to gastritis - 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 - They are both passed Social history: Retired Lives with his No alcohol No tobacco No recreational drugs - active Active medications Acetaminophen (Tylenol Tab*) 650 mg PO Q4H PRN PRN Reason: MILD PAIN or TEMP > 100.4 Atorvastatin Calcium (Lipitor*) 10 mg PO BEDTIME [facility]; Protocol Last Admin: 06/10/19 21:51 Dose: 10 mg Diltiazem HCl (Cardizem Cd Cap*) 180 mg PO QAM [facility] Last Admin: 06/11/19 17:45 Dose: 180 mg Metoprolol Succinate (Toprol Xl Tab*) 50 mg PO DAILY [facility] Last Admin: 06/11/19 17:45 Dose: 50 mg Mupirocin (Bactroban 2 % Oint*) 1 applic TOPICAL DAILY [facility] Pantoprazole Sodium (Protonix Iv*) 40 mg IV Q12H [facility] Last Admin: 06/11/19 09:08 Dose: 40 mg Physical exam: Temp Pulse Resp BP SpO2 FiO2 97.7 F 70 16 124/52 98 06/11/19 17:22 06/11/19 17:22 06/11/19 17:22 06/11/19 17:22 06/11/19 17:22 Constitutional: No acute distress, pleasant and conversant. Lying in bed. Neck is supple, no lymphadenopathy, no JVD, trachea midline. Head is atraumatic and normocephalic lips are slightly pale. Ears and nose appear normal.Oral mucosa is dry. Chest is clear to auscultation with good respiratory effort Heart exam shows S1, S2 normal regular rate and rhythm, no murmurs rubs or gallops. No lower extremities edema Abdomen: Soft, nontenderness. Bowel sounds present. Neurological exam: No tremor, speech is fluent, grossly nonfocal. Psychiatric: Alert and oriented 3, mood is normal, judgment and insight appropriate. Musculoskeletal: No CVA tenderness, no muscle pain, no joint swelling or erythema. Skin: Slight decreased turgor, no lesions or ulcerations present. No rashes. Assessment and plan Mr. Vegas is a very nice 83-year-old gentleman who has known end-stage kidney disease secondary to hypertension. Is currently admitted for GI bleed. 1. End-stage kidney disease on peritoneal dialysis. will restart peritoneal dialysis today. 12 hours, fill volume 2 L, will use a total of 12 L of dialysis solution : 6 L of 1.25%, 6 L of 2.5%. please follow-up BMP tomorrow. 2. Blood pressure well controlled, no changes. 3. GI bleed. Patient scheduled for repeat upper endoscopy today.
[2019-06-11] MEDS ORDERED: Midazolam* 1 MG/ML 10 ML VIAL (10 MG) ONE (15:17)
[2019-06-11] MEDS ORDERED: fentaNYL* 50 MCG/ML 2 ML VIAL (100 MCG VIAL) ONE (15:17)
--- NOTE | 2019-06-11 16:33 | PN ---
Progress Note - Progress Note Date of Service: 06/11/19 Note: GI Brief EGD Note: E: nml G: antrum with nodularity, ? ulcer, had oozing, placed clip with good effect. D: in D3 2 small clean based ulcers, 1 clip placed over each. No fresh bleeding at end of procedure. Rec: Needs INR reversed, as the above may still ooze C/W IV PPI gtt Will need BID PPI x 3 months at d/c Repeat egd with primary GI Dr. Trinh in 2-3 months If possible might be helpful to hold anticoagulation for a week to allow this to heal up Juan Block DO 06/11/19 [id number]
[2019-06-11 18:17] LABS: Hematocrit 21 % (42-52); Hemoglobin 7.4 g/dL (14.0-18.0)
--- NOTE | 2019-06-11 19:58 | CONS ---
CC: Dr. Kizzy Villatoro; Dr. Gilberto Trinh* CONSULTATION REPORT: DATE OF CONSULT: 06/11/19 REQUESTING PROVIDER: Yvonne Thibodeaux NP REASON FOR CONSULTATION: Anemia. HISTORY OF PRESENT ILLNESS: This is a very pleasant 83-year-old male with past medical history of end-stage renal disease, on peritoneal dialysis; atrial flutter; distant history of pulmonary embolism 5 years ago, who presented to dialysis and was found to have a low hemoglobin. He recently had an upper endoscopy with my partner, Dr. Trinh, on 06/08/19 and was found to have a few areas of oozing within the stomach and started on omeprazole daily. No distinct source was noted. Biopsies were taken of the antrum for nodularity. The patient reports for the next few days he had progressive dyspnea and lightheadedness. The patient does note that his stools were a little bit dark over the last few days. No gross hematochezia. No abdominal pain. He denies any dysphagia, odynophagia. Denies any weight loss of weight gain. Remainder of the 14-point review of systems is grossly negative except for as described in the HPI. PAST MEDICAL HISTORY: End-stage renal disease, peritoneal dialysis, atrial flutter, hypertension. PAST SURGICAL HISTORY: Peritoneal dialysis catheter, wisdom tooth extraction and EGD as mentioned above on the 06/08/19. MEDICATIONS: Home medications include: 1. Diltiazem. 2. Omeprazole. 3. Coumadin. 4. Rosuvastatin. 5. Metoprolol. 6. Sevelamer. ALLERGIES: No known drug allergies. FAMILY HISTORY: No family history of GI cancer or inflammatory bowel disease. SOCIAL HISTORY: Denies any tobacco, alcohol, or illicit drug use. He is . REVIEW OF SYSTEMS: Remainder of the 14-point review of systems is grossly negative except for as described in the HPI. PHYSICAL EXAM: Vital Signs: Blood pressure is 136/46, pulse is 71, respiratory rate is 16, he is 97% on room air, temperature is 98.5. In general , he is alert and oriented x3, in no acute distress. HEENT: Atraumatic, normocephalic. Pupils equal, round, reactive to light. Extraocular movements are intact. Conjunctivae are pink. Sclerae anicteric. Cardiovascular: Regular rate and rhythm, S1, S2. Respiratory: Clear to auscultation bilaterally. Abdomen is soft, nontender, nondistended, bowel sounds positive. Extremities: No clubbing, no cyanosis, no edema. Psych: Appropriate mood and affect. DIAGNOSTIC STUDIES/LAB DATA: Hemoglobin on admission is 6.1, it was 10.5 back in October 2018. After 1 unit of blood, he remained at 6.1. INR on admission is 2.39, pending still for today. BUN is elevated at 71 and creatinine 11.66. ASSESSMENT AND PLAN: This is an 83-year-old male with melena and acute blood loss anemia. 1. Acute blood loss anemia. He had oozing on EGD and was placed on omeprazole without a clear source. We will plan on repeat endoscopy today, may consider a dose of IV erythromycin prior for better clearance of the stomach. I would recommend IV PPI. Continue H and H at q.6 hours. Transfuse p.r.n. to keep hemoglobin above 7 per primary team and keep the head of the bed elevated at all times. 2. End-stage renal disease, on peritoneal dialysis. He will likely need dialysis after EGD today per primary team. [id number]/[facility] #: [id number] [facility] HOSPITALRodney
[2019-06-11] MEDS: Atorvastatin* 10 MG TAB PO SCH (22:03)
[2019-06-11 22:29] LABS: Hematocrit 19 % (42-52); Hemoglobin 6.7 g/dL (14.0-18.0)
--- NOTE | 2019-06-12 04:05 | PRO ---
CC: Dr. Kizzy Villatoro; Dr. Gilberto Trinh* ESOPHAGOGASTRODUODENOSCOPY REPORT: DATE OF SERVICE: 06/11/19 INDICATIONS FOR PROCEDURE: Melena, acute blood less anemia. PROCEDURE PERFORMED: Complete esophagogastroduodenoscopy with hemostasis and Endoclip placement x3. MEDICATIONS GIVEN: Include: 1. Midazolam 10 mg IV. 2. Fentanyl 62.5 mcg IV. DESCRIPTION OF PROCEDURE: After the EGD procedure including the risks, benefits , and alternatives with the risks not limited to perforation, surgery, missed lesions, and/or were explained to the patient, written and informed consent was obtained, IV medication was given, and a bite block was placed between the teeth. The adult Olympus gastroscope was then inserted into the patient's oropharynx, into the tubular esophagus. Tubular esophagus was normal in appearance. The scope was advanced through the lower esophageal sphincter into the stomach. Old blood was noted, this was suctioned up and then the scope was advanced to the antrum where a clot was appreciated along the 3 o' clock position by the pylorus. This was washed and suctioned. There was a little bit of a scant ooze in this area that was active. I placed an Endoclip over this with good effect. No further oozing. On retroflexion, the views were grossly normal. The scope was then advanced through a widely patent pylorus, into the duodenal bulb, C loop, and distal duodenum. In D3, two small ulcers about a centimeter in size, clean based, were identified. No active hemorrhage from these 2 sites; however, an Endoclip was placed over each with excellent effect. The scope was then removed from the patient. At the conclusion of the procedure, no active oozing was noted. He tolerated the procedure well. He returned to the recovery room in stable condition. IMPRESSION: 1. Complete esophagogastroduodenoscopy with hemostasis and Endoclip placement. 2. Endoclip placement x3 as above. 3. Two small duodenal ulcers, status post Endoclip placement. 4. Antral nodularity, biopsied on previous endoscopy. Endoclip placed on this area. RECOMMENDATIONS: Continue IV PPI drip at this point. He will need correction of his INR. I suspect he may still have scant oozing from these areas that were treated above with his INR today, his INR is 3. I was only able to do Endoclips today secondary to his INR level. To form a good clot, I would recommend bringing down his INR. Ideally, if okay with Cardiology, we would recommend trying to hold his anticoagulation for about a week or so to allow these areas to heal up entirely. At the conclusion of the IV intravenous PPI therapy, he should be switched to b.i.d. p.o. PPI for a total of 3 months. He will need a repeat upper endoscopy with his primary bowling ball weigher and packer, Dr. Trinh in 3 months' time to ensure healing in the antrum. If ongoing evidence of blood loss, we will need a repeat endoscopy with correction of the INR fully. [id number]/[facility] #: [id number] [facility]
[2019-06-12 08:17] LABS: ABS Basophils 0.1 10^3/ul (0-0.2); ABS Eosinophils 0.4 10^3/ul (0-0.6); ABS Monocytes 1.1 10^3/ul (0-0.8); ABS Neutrophils 5.5 10^3/ul (1.5-7.7); Eosinophil % 4.4 %; Hematocrit 23 % (42-52); Hemoglobin 8.1 g/dL (14.0-18.0); Lymphocyte % 11.9 %; Mean Corpuscular HGB Conc 35 g/dL (31-36); Mean Corpuscular Hemoglobin 32 pg (27-31); Mean Corpuscular Volume 91 fL (80-94); Mean Platelet Volume 7.7 fL (7.4-10.4); Platelet Count 179 10^3/uL (150-450); Red Blood Count 2.54 10^6 /uL (4.18-5.48); Red Cell Distribution Width 17 % (10-15)
[2019-06-12] MEDS: Mupirocin 2% OINT* TUBE TOPICAL SCH (08:27)
[2019-06-12] MEDS: Metoprolol Succinate XL TAB* 50 MG PO SCH (08:27)
[2019-06-12] MEDS: Pantoprazole IV* 40 MG IV SCH ×2 (08:27→20:54)
[2019-06-12] MEDS: Diltiazem CD CAP* 180 MG PO SCH (08:27)
[2019-06-12 08:29] LABS: INR 2.36 (0.82-1.09)
[2019-06-12 08:32] LABS: BUN/Creatinine Ratio 6.6 (8-20); Calcium 8.2 mg/dL (8.6-10.3); EGFR African American 5.2 (>60); EGFR Non-African American 4.3 (>60); Potassium 4.9 mmol/L (3.5-5.0)
--- NOTE | 2019-06-12 09:28 | PN ---
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 Interval history. Since yesterday he had an upper endoscopy showing bleeding from a gastric area and 2 duodenal ulcers which were not bleeding at the time of the endoscopy. All these areas were clipped and he was not bleeding at the end of the procedure. He had peritoneal dialysis last night, without any complications. he continues to have black stool which is expected. BP is well controlled. Hb is improved. he was started on liquid diet which he had tolerated well for breakfast. Review of systems: Constitutional: No fevers, chills, night sweats. Respiratory: no shortness of breath , cough or wheezing Cardiovascular: no Chest pain or palpitations GI: no abdominal pain, N/V/C/D Medications: Acetaminophen (Tylenol Tab*) 650 mg PO Q4H PRN PRN Reason: MILD PAIN or TEMP > 100.4 Atorvastatin Calcium (Lipitor*) 10 mg PO BEDTIME [facility]; Protocol Last Admin: 06/11/19 22:03 Dose: 10 mg Diltiazem HCl (Cardizem Cd Cap*) 180 mg PO QAM [facility] Last Admin: 06/12/19 08:27 Dose: 180 mg Metoprolol Succinate (Toprol Xl Tab*) 50 mg PO DAILY [facility] Last Admin: 06/12/19 08:27 Dose: 50 mg Mupirocin (Bactroban 2 % Oint*) 1 applic TOPICAL DAILY [facility] Last Admin: 06/12/19 08:27 Dose: Not Given Pantoprazole Sodium (Protonix Iv*) 40 mg IV Q12H [facility] Last Admin: 06/12/19 08:27 Dose: 40 mg Labs: Hemoglobin 8.1, improved, white blood cell count 8.0, platelets 179, sodium 139, potassium 4.9, BUN 75, creatinine 11.33, total CO2 26, calcium 8.2. Albumin 3.2. Physical exam: Temp Pulse Resp BP SpO2 FiO2 98.3 F 71 20 126/56 94 06/12/19 05:23 06/12/19 05:23 06/12/19 05:23 06/12/19 05:23 06/12/19 05:23 No acute distress Chest is clear to auscultation with good respiratory effort. Heart exam shows S1-S2, regular rate and rhythm. No lower extremities edema Abdomen is soft, nontender and nondistended He is alert and oriented 3. Intake & Output 06/10/19 06/11/19 06/12/19 06/13/19 06:59 06:59 06:59 06:59 Intake Total 205 613 3308 Output Total 300 Balance 844 843 4168 Weight 80.558 kg Intake: IV Fluids 10 Oral 929 408 2901 Output: Urine 300 Other: Estimated Void Medium Medium Date of Last Bowel 06/11/2019 Movement # Bowel Movements 0 0 Estimated Stool Amount Small # Voids 1 1 Assessment and plan: 1. End-stage kidney disease due to hypertension. Patient receiving renal replacement therapy as peritoneal dialysis. if he remains in the hospital overnight we will proceed with his home PD rx, using all 1.5% dextrose. 2. Hypertension - well controlled, nO changes 3. Acute anemia due to GI bleed. Status post endoscopy. He has gastric and duodenal ulcers. On PPIs 4. Hypocalcemia most probably due to low blood transfusions. Citrate from the blood products binds calcium. no changes now, will follow
[2019-06-12 12:09] LABS: Hematocrit 22 % (42-52); Hemoglobin 7.7 g/dL (14.0-18.0)
--- NOTE | 2019-06-12 15:26 | PN ---
Subjective Date of Service: 06/12/19 Interval History: Patient tells me he had black diarrhea this morning. Denies abd pain, nausea, vomiting, chest pain, difficulty breathing, dizziness/lightheadedness at rest or with exertion. He has been on coumadin for 6 years and typically has a stable INR. Objective Active Medications: Acetaminophen (Tylenol Tab*) 650 mg PO Q4H PRN PRN Reason: MILD PAIN or TEMP > 100.4 Atorvastatin Calcium (Lipitor*) 10 mg PO BEDTIME [facility]; Protocol Last Admin: 06/11/19 22:03 Dose: 10 mg Diltiazem HCl (Cardizem Cd Cap*) 180 mg PO QAM [facility] Last Admin: 06/12/19 08:27 Dose: 180 mg Metoprolol Succinate (Toprol Xl Tab*) 50 mg PO DAILY [facility] Last Admin: 06/12/19 08:27 Dose: 50 mg Mupirocin (Bactroban 2 % Oint*) 1 applic TOPICAL DAILY [facility] Last Admin: 06/12/19 08:27 Dose: Not Given Pantoprazole Sodium (Protonix Iv*) 40 mg IV Q12H [facility] Last Admin: 06/12/19 08:27 Dose: 40 mg Oxygen Devices in Use Now: None Appearance: Elderly white male, WDWN, laying upright, appearing comfortable and in NAD Eyes: No Scleral Icterus, - - PERRL Ears/Nose/Mouth/Throat: Mucous Membranes Moist Neck: Trachea Midline Respiratory: Symmetrical Chest Expansion and Respiratory Effort, Clear to Auscultation Cardiovascular: NL Sounds; No Murmurs; No JVD, RRR Abdominal: - - abd soft/nontender/nondistended Extremities: No Edema, No Clubbing, Cyanosis Skin: No Rash or Ulcers Neurological: Alert and Oriented x 3 Result Diagrams: 06/12/19 12:01 06/12/19 08:05 Microbiology and Other Data: Microbiology 06/10/19 20:30 Stool Occult Blood (YUAN) - Final Stool Stool Occult Blood (YUAN) - Final Assess/Plan/Problems-Billing Assessment: 83 yo white male with PMHx ESRD (on PD since Dec 2018), atrai flutter (on coumadin), hx of PE, and HTN who presents due to anemia on routine blood work. - Patient Problems (1) UGIB (upper gastrointestinal bleed) Current Visit: Yes Status: Acute Code(s): K92.2 - GASTROINTESTINAL HEMORRHAGE, UNSPECIFIED SNOMED Code(s): 37555218 Comment: -had EGD on 06/08/2019 which demonstrated old and fresh blood at gastric lining, started on po PPI by Dr. Trinh -has received total of 3U PRBCs and 1 U FFP -repeat EGD 06/11/19 with bleeding gastric and duodenal ulcers, clipped by Dr. Block -continue IV protonix BID -continue clear liquids in the case an urgent repeat EGD is needed -monitor H&H, is not yet stable and INR is still not yet subtherapeutic -more melena today (2) Acute blood loss anemia Current Visit: Yes Status: Acute Code(s): D62 - ACUTE POSTHEMORRHAGIC ANEMIA SNOMED Code(s): 608705811 Comment: -05/10 UGIB -received additional 1U of PRBCs overnight, totaling to 3 U -further mgmt as above (3) ESRD (end stage renal disease) Current Visit: Yes Status: Acute Code(s): N18.6 - END STAGE RENAL DISEASE SNOMED Code(s): 66250231 Comment: -on PD since dec 2018, will continue inpatient -appreciate nephrology involvement to continue PD while in hospital (4) Atrial flutter Current Visit: Yes Status: Acute Code(s): I48.92 - UNSPECIFIED ATRIAL FLUTTER SNOMED Code(s): 5072943 Comment: -on coumadin at home, held in setting of GIB -continue diltiazem and metoprolol -rate controlled -reversed coumadin with po vitamin K yesterday, giving additional today as INR has not decreased sufficiently and continues to have melena today -Discussed with Dr. Mitchell who is outpatient votator machine operator; she is OK with holding AC for now and plans to f/u with him in 3-4 weeks outpatient to repeat EKG off AC -he has been NSR overall on telemetry as well as on EKGs within the last year that I have in EMR and overall his stroke risk seems low off AC; Patient and I did discuss the potential for stroke off of AC (5) HTN (hypertension) Current Visit: Yes Status: Acute Code(s): I10 - ESSENTIAL (PRIMARY) HYPERTENSION SNOMED Code(s): 04072214 Comment: -continue metoprolol and diltiazem -normotensive (6) History of pulmonary embolism Current Visit: Yes Status: Acute Code(s): Z86.711 - PERSONAL HISTORY OF PULMONARY EMBOLISM SNOMED Code(s): 666879281 Comment: -on coumadin at home, mgmt as above -history of one PE several years ago (7) Hyperlipidemia Current Visit: Yes Status: Acute Code(s): E78.5 - HYPERLIPIDEMIA, UNSPECIFIED SNOMED Code(s): 17630656 Comment: -continue statin (8) DVT prophylaxis Current Visit: Yes Status: Acute Code(s): Z29.9 - ENCOUNTER FOR PROPHYLACTIC MEASURES, UNSPECIFIED SNOMED Code(s): 247289255 Comment: -SCDs -chemoprophylaxis contraindicated in setting of anemia (9) Full code status Current Visit: Yes Status: Acute Code(s): Z78.9 - OTHER SPECIFIED HEALTH STATUS SNOMED Code(s): 571711332 Status and Disposition: inpatient, continuing to monitor
[2019-06-12] MEDS ORDERED: Phytonadione Oral Solution* 5 MG/25 ML UDC PO ONE (16:56)
[2019-06-12] MEDS: Atorvastatin* 10 MG TAB PO SCH (20:54)
[2019-06-12 21:22] LABS: Hematocrit 22 % (42-52); Hemoglobin 7.7 g/dL (14.0-18.0)
[2019-06-13 05:11] LABS: ABS Basophils 0.1 10^3/ul (0-0.2); ABS Eosinophils 0.4 10^3/ul (0-0.6); ABS Lymphocytes 0.9 10^3/ul (1.0-4.8); ABS Monocytes 0.9 10^3/ul (0-0.8); ABS Neutrophils 4.3 10^3/ul (1.5-7.7); Eosinophil % 5.7 %; Hematocrit 22 % (42-52); Hemoglobin 7.5 g/dL (14.0-18.0); Lymphocyte % 14.4 %; Mean Corpuscular HGB Conc 34 g/dL (31-36); Mean Corpuscular Hemoglobin 31 pg (27-31); Mean Corpuscular Volume 91 fL (80-94); Mean Platelet Volume 7.3 fL (7.4-10.4); Nucleated Red Blood Cells % 0.1; Platelet Count 190 10^3/uL (150-450); Red Blood Count 2.41 10^6 /uL (4.18-5.48); Red Cell Distribution Width 17 % (10-15); White Blood Count 6.6 10^3/uL (3.5-10.8)
[2019-06-13] MEDS: Pantoprazole IV* 40 MG IV SCH ×2 (09:08→21:29)
[2019-06-13] MEDS: Diltiazem CD CAP* 180 MG PO SCH (09:08)
[2019-06-13] MEDS: Metoprolol Succinate XL TAB* 50 MG PO SCH (09:08)
[2019-06-13 09:40] LABS: INR 1.61 (0.82-1.09)
[2019-06-13] MEDS: Mupirocin 2% OINT* TUBE TOPICAL SCH (10:56)
--- NOTE | 2019-06-13 13:12 | PN ---
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 Interval history. has no c/o today. has been on clear fluid diet all day yesterday without problems. tolerated PD well. total uf 668 ml. BP well controlled Review of systems: Constitutional: No fevers, chills, night sweats. Respiratory: no shortness of breath , cough or wheezing Cardiovascular: no Chest pain or palpitations GI: no abdominal pain, N/V/C/D Medications: Acetaminophen (Tylenol Tab*) 650 mg PO Q4H PRN PRN Reason: MILD PAIN or TEMP > 100.4 Atorvastatin Calcium (Lipitor*) 10 mg PO BEDTIME [facility]; Protocol Last Admin: 06/12/19 20:54 Dose: 10 mg Diltiazem HCl (Cardizem Cd Cap*) 180 mg PO QAM [facility] Last Admin: 06/13/19 09:08 Dose: 180 mg Metoprolol Succinate (Toprol Xl Tab*) 50 mg PO DAILY [facility] Last Admin: 06/13/19 09:08 Dose: 50 mg Mupirocin (Bactroban 2 % Oint*) 1 applic TOPICAL DAILY [facility] Last Admin: 06/13/19 10:56 Dose: Not Given Pantoprazole Sodium (Protonix Iv*) 40 mg IV Q12H [facility] Last Admin: 06/13/19 09:08 Dose: 40 mg Labs: Abnormal Lab Results 06/12/19 06/13/19 06/13/19 21:14 04:59 09:13 WBC 6.6 RBC 2.41 L Hgb 7.7 L 7.5 L Hct 22 L 22 L MCV 91 MCH 31 MCHC 34 RDW 17 H Plt Count 190 MPV 7.3 L Neut % (Auto) 64.7 Lymph % (Auto) 14.4 [place] % (Auto) 14.1 Eos % (Auto) 5.7 Baso % (Auto) 1.1 Absolute Neuts (auto) 4.3 Absolute Lymphs (auto) 0.9 L Absolute Monos (auto) 0.9 H Absolute Eos (auto) 0.4 Absolute Basos (auto) 0.1 Absolute Nucleated RBC 0.0 Nucleated RBC % 0.1 INR (Anticoag Therapy) 1.61 H Physical exam: Temp Pulse Resp BP SpO2 FiO2 98.6 F 73 18 166/65 97 06/13/19 11:31 06/13/19 11:31 06/13/19 11:31 06/13/19 11:31 06/13/19 11:31 No acute distress Chest is clear to auscultation with good respiratory effort. Heart exam shows S1-S2, regular rate and rhythm. No lower extremities edema Abdomen is soft, nontender and nondistended He is alert and oriented 3. Assessment and plan: 1. End-stage kidney disease due to hypertension. Patient receiving renal replacement therapy as peritoneal dialysis. tolerating treatment well.cont home PD rx with all 1.5% D 2. Hypertension - well controlled, no changes 3. Acute anemia due to GI bleed. Status post endoscopy. He has gastric and duodenal ulcers. On PPIs he laso has a component of anemia due ESRD. will add Epo 65545 units sq today
--- NOTE | 2019-06-13 14:10 | PN ---
Subjective Date of Service: 06/13/19 Interval History: Patient had formed BM today which was dark brown and not black. Denies dizziness , chest pain, difficulty breathing, abd pain. He expresses comfort with the plan of going off coumadin until follow up with Dr. Mitchell for repeat EKG. Objective Active Medications: Acetaminophen (Tylenol Tab*) 650 mg PO Q4H PRN PRN Reason: MILD PAIN or TEMP > 100.4 Atorvastatin Calcium (Lipitor*) 10 mg PO BEDTIME [facility]; Protocol Last Admin: 06/12/19 20:54 Dose: 10 mg Diltiazem HCl (Cardizem Cd Cap*) 180 mg PO QAM [facility] Last Admin: 06/13/19 09:08 Dose: 180 mg Metoprolol Succinate (Toprol Xl Tab*) 50 mg PO DAILY [facility] Last Admin: 06/13/19 09:08 Dose: 50 mg Mupirocin (Bactroban 2 % Oint*) 1 applic TOPICAL DAILY [facility] Last Admin: 06/13/19 10:56 Dose: Not Given Pantoprazole Sodium (Protonix Iv*) 40 mg IV Q12H [facility] Last Admin: 06/13/19 09:08 Dose: 40 mg Vital Signs - 8 hr 06/13/19 06/13/19 06/13/19 07:59 08:00 11:31 Temperature 98.4 F 98.6 F Pulse Rate 72 73 Respiratory 18 18 18 Rate Blood Pressure 157/62 166/65 (mmHg) O2 Sat by Pulse 98 97 Oximetry Oxygen Devices in Use Now: None Appearance: Elderly white male, laying upright in bed, appearing comfortable and in NAD Eyes: No Scleral Icterus, - - PERRL Ears/Nose/Mouth/Throat: Mucous Membranes Moist Neck: Trachea Midline Respiratory: Symmetrical Chest Expansion and Respiratory Effort, Clear to Auscultation Cardiovascular: NL Sounds; No Murmurs; No JVD, RRR Abdominal: - - abd soft/nontender/nondistended Extremities: No Edema, No Clubbing, Cyanosis Skin: No Rash or Ulcers Neurological: Alert and Oriented x 3 Result Diagrams: 06/13/19 14:10 06/13/19 14:10 Microbiology and Other Data: Microbiology 06/10/19 20:30 Stool Occult Blood (YUAN) - Final Stool Stool Occult Blood (YUAN) - Final Assess/Plan/Problems-Billing Assessment: 83 yo white male with PMHx ESRD (on PD since Dec 2018), atrai flutter (on coumadin), hx of PE, and HTN who presents due to anemia on routine blood work. - Patient Problems (1) UGIB (upper gastrointestinal bleed) Current Visit: Yes Status: Acute Code(s): K92.2 - GASTROINTESTINAL HEMORRHAGE, UNSPECIFIED SNOMED Code(s): 44847919 Comment: -had EGD on 06/08/2019 which demonstrated old and fresh blood at gastric lining, started on po PPI by Dr. Trinh -repeat EGD 06/11/19 with bleeding gastric and duodenal ulcers, clipped by Dr. Block -has received total of 3U PRBCs and 1 U FFP -continue IV protonix BID -advancing diet today as H&H has overall been stable -monitor H&H, INR is downtrending today -no further melena today (2) Acute blood loss anemia Current Visit: Yes Status: Acute Code(s): D62 - ACUTE POSTHEMORRHAGIC ANEMIA SNOMED Code(s): 793375463 Comment: -05/10 UGIB -received total 3 U PRBCs during this hospitalization -further mgmt as above (3) ESRD (end stage renal disease) Current Visit: Yes Status: Acute Code(s): N18.6 - END STAGE RENAL DISEASE SNOMED Code(s): 07124421 Comment: -on PD since dec 2018, will continue inpatient -appreciate nephrology involvement to continue PD while in hospital -electrolytes stable (4) Atrial flutter Current Visit: Yes Status: Acute Code(s): I48.92 - UNSPECIFIED ATRIAL FLUTTER SNOMED Code(s): 0273000 Comment: -on coumadin at home, held in setting of GIB -continue diltiazem and metoprolol -rate controlled -reversed coumadin with po vitamin K -Discussed with Dr. Mitchell who is outpatient funeral home assistant; she is OK with holding AC for now and plans to f/u with him in 3-4 weeks outpatient to repeat EKG off AC -he has been NSR overall on telemetry as well as on EKGs within the last year that I have in EMR and overall his stroke risk seems low off AC; Patient and I did discuss the potential for stroke off of AC and is OK with holding AC for now (5) HTN (hypertension) Current Visit: Yes Status: Acute Code(s): I10 - ESSENTIAL (PRIMARY) HYPERTENSION SNOMED Code(s): 45101793 Comment: -continue metoprolol and diltiazem -normotensive (6) History of pulmonary embolism Current Visit: Yes Status: Acute Code(s): Z86.711 - PERSONAL HISTORY OF PULMONARY EMBOLISM SNOMED Code(s): 552058528 Comment: -on coumadin at home, mgmt as above -history of one PE several years ago (7) Hyperlipidemia Current Visit: Yes Status: Acute Code(s): E78.5 - HYPERLIPIDEMIA, UNSPECIFIED SNOMED Code(s): 70336764 Comment: -continue statin (8) DVT prophylaxis Current Visit: Yes Status: Acute Code(s): Z29.9 - ENCOUNTER FOR PROPHYLACTIC MEASURES, UNSPECIFIED SNOMED Code(s): 530958815 Comment: -SCDs -chemoprophylaxis contraindicated in setting of anemia (9) Full code status Current Visit: Yes Status: Acute Code(s): Z78.9 - OTHER SPECIFIED HEALTH STATUS SNOMED Code(s): 153457488 Status and Disposition: inpatient, continuing to monitor; if H&H stable throughout today and into tomorrow AM, anticipate d/c home
[2019-06-13 14:19] LABS: Hematocrit 24 % (42-52); Hemoglobin 8.3 g/dL (14.0-18.0)
[2019-06-13] MEDS ORDERED: EPOETIN ALFA-EPBX * 10,000 UNIT/ML VIAL SUBCUT ONE (14:30)
[2019-06-13 14:50] LABS: Calcium 8.1 mg/dL (8.6-10.3); EGFR African American 5.5 (>60); EGFR Non-African American 4.6 (>60); Potassium 3.9 mmol/L (3.5-5.0)
[2019-06-13 20:56] LABS: Hematocrit 22 % (42-52); Hemoglobin 7.6 g/dL (14.0-18.0)
[2019-06-13] MEDS: Atorvastatin* 10 MG TAB PO SCH (21:29)
[2019-06-14 06:18] LABS: ABS Basophils 0.1 10^3/ul (0-0.2); ABS Eosinophils 0.4 10^3/ul (0-0.6); ABS Lymphocytes 0.9 10^3/ul (1.0-4.8); ABS Neutrophils 4.4 10^3/ul (1.5-7.7); Eosinophil % 5.4 %; Hematocrit 21 % (42-52); Hemoglobin 7.2 g/dL (14.0-18.0); Lymphocyte % 13.7 %; Mean Corpuscular HGB Conc 34 g/dL (31-36); Mean Corpuscular Hemoglobin 31 pg (27-31); Mean Corpuscular Volume 92 fL (80-94); Mean Platelet Volume 7.8 fL (7.4-10.4); Platelet Count 196 10^3/uL (150-450); Red Blood Count 2.31 10^6 /uL (4.18-5.48); Red Cell Distribution Width 16 % (10-15); White Blood Count 6.8 10^3/uL (3.5-10.8)
[2019-06-14 06:24] LABS: INR 1.47 (0.82-1.09)
[2019-06-14] MEDS: Diltiazem CD CAP* 180 MG PO SCH (09:16)
[2019-06-14] MEDS: Mupirocin 2% OINT* TUBE TOPICAL SCH ×2 (09:16→09:38)
[2019-06-14] MEDS: Pantoprazole IV* 40 MG IV SCH (09:17)
[2019-06-14] MEDS: Metoprolol Succinate XL TAB* 50 MG PO SCH (09:17)
[2019-06-14 09:46] VITALS: BP 150/60
[2019-06-14 11:00] LABS: Hematocrit 23 % (42-52); Hemoglobin 7.9 g/dL (14.0-18.0)
--- NOTE | 2019-06-14 15:47 | DS ---
CC: Dr. Villatoro; Dr. Trinh; Dr. Mitchell * DISCHARGE SUMMARY: DATE OF ADMISSION: 06/10/19 DATE OF DISCHARGE: 06/14/19 PRIMARY CARE PROVIDER: Dr. Villatoro. OUTPATIENT MUSEUM GUIDE: Dr. Trinh. OUTPATIENT MANUAL WINDER: Dr. Mitchell. ATTENDING PROVIDER: Porsche Sandra MD * (DICTATED BY OSVALDO PRAKASH) PRIMARY DIAGNOSIS: Upper gastrointestinal bleed. SECONDARY DIAGNOSES: 1. End-stage renal disease, on peritoneal dialysis. 2. Atrial flutter, previously on Coumadin, which has now been discontinued. 3. History of pulmonary embolism. 4. Hypertension. 5. Prior history of anemia, likely anemia of chronic disease. 6. Hyperlipidemia. PERTINENT STUDIES WHILE IN THE HOSPITAL: Endoscopy performed on 06/11/19, performed by Dr. Block. Pertinent findings include Endoclip placement x3 to gastric ulcer as well as Endoclip placement to duodenal ulcers. PERTINENT LABS WHILE IN THE HOSPITAL: Hemoglobin at presentation 6.1, hemoglobin on 06/13/19 was 8.3, hemoglobin on 06/14/19 is 7.9. HISTORY OF PRESENT ILLNESS/HOSPITAL COURSE: Steve Vegas is an 83-year-old white male with past medical history significant for end-stage renal disease, on peritoneal dialysis; history of atrial flutter, on Coumadin; history of PE 6 years ago; and hypertension, who presented to the emergency department on due to anemia found in outpatient labs. He has previously several days prior had an outpatient endoscopy performed by Dr. Trinh, who noted bleeding in the stomach at that time and was started on omeprazole. Obviously, this did continue. At this time, he presented with acute blood loss anemia related to his upper GI bleed. He had a repeat endoscopy while he was in the hospital, which demonstrated bleeding gastric ulcers as well as duodenal ulcers. Dr. Block placed Endoclips and the patient was on IV Protonix during his hospitalization. His INR was reversed with vitamin K, and at that point, it seemed that his bleeding stopped. During his hospitalization, he received a total of 3 units of PRBCs as well as 1 unit of FFP. He was hemodynamically stable during the entirety of his hospital stay despite his anemia. By day of discharge, he is still having dark stools, although they are no longer black or tarry and his H and H are stable. He has not experienced dizziness, lightheadedness, chest pain, difficulty breathing, or abdominal pain during the entirety of his hospital stay. Additionally, the patient was followed by the nephrology team during his hospitalization to continue his peritoneal dialysis while he was in the hospital. Of note, Dr. Sadler did order one-time dose on 06/13/19 of epoetin abram. PHYSICAL EXAM ON DATE OF DISCHARGE: General: An elderly white male, lying upright in hospital bed, appearing comfortable, in no acute distress. Cardio: Regular rate and rhythm without murmurs, rubs, or gallops. Lungs: Clear to auscultation without use of accessory muscles of respiration. Abdomen: Soft, nontender, nondistended. Extremities: No clubbing, cyanosis, or edema. Neuro : The patient is alert and oriented x3. Psych: The patient is pleasant and cooperative. DISCHARGE PLAN: The patient and I did discuss during this hospitalization the risk of stroke considering his atrial flutter now that we are discontinuing his Coumadin in the setting of his GI bleed. I did discuss this during his stay with his outpatient certified personal trainer, Dr. Mitchell, who agreed with the current discontinuation of his Coumadin given his GI bleed, and considering the patient was in sinus rhythm during his hospitalization as well as on recent EKGs and telemetry in the past several months, his relative risk for stroke seems low. Dr. Mitchell plans to see the patient in 3 to 4 weeks in the office for repeat EKG and evaluation if his Coumadin should be restarted at that time. The patient should follow up with the gastroenterology team. His previous animal keeper was Dr. Trinh and I believe it is appropriate for him to follow up likely within 3 months, though if earlier will be determined by the GI office. The patient is advised to follow up with his primary care provider, Dr. Villatoro, this week, within the next 3 to 5 days. At this time, his CBC and BMP should be repeated. He was advised to continue to monitor his bowel movements and if they become black and tarry to please call his PCP's office or come to the emergency department. Additionally, he was advised to return to the emergency department for dizziness, lightheadedness, loss of consciousness, shortness of breath, chest pain, bright red blood in vomit or stool, or black vomitus. DISCHARGE DIET: Renal diet. DISCHARGE ACTIVITY: The patient may return to normal activity as tolerated. DISCHARGE MEDICATIONS: New medication: 1. Pantoprazole 40 mg p.o. b.i.d. Continued home medications: 1. Metoprolol succinate 50 mg p.o. daily. 2. Diltiazem 180 mg p.o. daily. 3. Rosuvastatin 5 mg p.o. at bedtime. Discontinued home medications: 1. Coumadin 1.75 mg alternating with 2.5 mg. 2. Omeprazole 40 mg p.o. daily. CONDITION ON DISCHARGE: Stable. DISPOSITION: Home. TIME SPENT: Approximately 35 minutes was spent on this discharge, approximately half this time was spent at bedside evaluating the patient and discussing the plan of care. OSVALDO PRAKASH [id number]/[facility] #: [id number] [facility]
== END 2019-06-14 13:45 | disposition home or self-care (01) | DRG 377 ==
LOC: ED 16:33 → MED 20:00 → OBSVTOIN 20:30 → MED 06-11 14:55
PROVIDERS: ADMIT Nurse Practitioner; ATTEND Internal Medicine
PROC: 30233N1 Transfusion of Nonautologous Red Blood Cells into Peripheral Vein, Percutaneous Approach (ICD-10-PCS; 2019-06-10)
PROC: 0W3P8ZZ Control Bleeding in Gastrointestinal Tract, Via Natural or Artificial Opening Endoscopic (ICD-10-PCS; principal; 2019-06-11)
PROC: 3E1G88Z Irrigation of Upper GI using Irrigating Substance, Via Natural or Artificial Opening Endoscopic (ICD-10-PCS; 2019-06-11)
PROC: 3E1M39Z Irrigation of Peritoneal Cavity using Dialysate, Percutaneous Approach (ICD-10-PCS; 2019-06-11)
PROC: 30233L1 Transfusion of Nonautologous Fresh Plasma into Peripheral Vein, Percutaneous Approach (ICD-10-PCS; 2019-06-11)
DX: K25.4 Chronic or unspecified gastric ulcer with hemorrhage (principal); N18.6 End stage renal disease; D62 Acute posthemorrhagic anemia; I12.0 Hypertensive chronic kidney disease with stage 5 chronic kidney disease or end stage renal disease; I48.92 Unspecified atrial flutter; N40.0 Benign prostatic hyperplasia without lower urinary tract symptoms; F41.9 Anxiety disorder, unspecified; E83.51 Hypocalcemia; K26.4 Chronic or unspecified duodenal ulcer with hemorrhage; Z99.2 Dependence on renal dialysis; Z86.711 Personal history of pulmonary embolism
CPT/HCPCS: 36415; 71046; 80048; 80053; 82270; 82272; 85014; 85018; 85025; 85610; 86850; 86900; 86901; 86922; 86927; 90945; 93005; 99156; 99157; 99284; A9270-GY; G0257; J2250; J3010; P9017; P9040; Q5106

== ENCOUNTER 2019-06-25 22:48 | Inpatient (IN) | payer MEDICARE, OTHER ==
[2019-06-25] MEDS ORDERED: Albuterol 2.5 MG/3 ML NEB.SOL* (0.083%) INH ONE (23:01)
--- NOTE | 2019-06-25 23:06 | ED ---
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 Patient states he has had shortness of breath on and off for a long time however his breathing was acutely more difficult today. Patient states he had positional dyspnea after receiving dialysis today. Patient is currently in no acute distress with no evidence of labored breathing. Patient is unable to maintain oxygen saturation above 90% without supplemental oxygen. Patient has at 95% on 2 L nasal cannula. Patient otherwise feels well and denies fever, cough, nasal congestion, chest pain, abdominal pain, pain with urination, nausea, vomiting, diarrhea. Patient states his breathing is made worse with exertion. Patient was recently discharged from [facility] on 06/10/2019 with a diagnosis of acute blood loss anemia secondary to upper gastrointestinal bleed due to gastric ulcer as well as duodenal ulcer. - History of Current Complaint Chief Complaint: EDShortnessOfBreath Time Seen by Provider: 06/25/19 22:54 Hx Obtained From: Patient Onset/Duration: Gradual Onset Timing: Constant Dyspnea At: Exertion Alleviating Factors: EMS Tx, Oxygen, Upright Position - Allergy/Home Medications Allergies/Adverse Reactions: Allergies Allergy/AdvReac Type Severity Reaction Status Date / Time No Known Allergies Allergy Verified 06/10/19 16:39 Home Medications: Home Medications Rosuvastatin (NF) [Crestor (NF)] 5 mg PO BEDTIME 09/10/18 [History Confirmed 07/26] dilTIAZem HCl [Cartia Xt] 180 mg PO QAM 10/31/18 [History Confirmed 06/10/19] Metoprolol Succinate XL TAB* [Toprol XL TAB*] 50 mg PO DAILY 06/08/19 [History Confirmed 06/10/19] Pantoprazole TAB * [Protonix TAB*] 40 mg PO BID #60 tab 06/14/19 [Rx] PMH/Surg Hx/FS Hx/Imm Hx Endocrine/Hematology History: Denies: Hx Anemia, Hx Unexplained Bleeding Cardiovascular History: Reports: Hx Hypertension - CONTROLLED, Other Cardiovascular Problems/Disorders - A FLUTTER Denies: Hx Aneurysm, Hx Angina, Hx Angioplasty, Hx Auto Implanted Cardiovert Defib, Hx Cardiac Arrest, Hx Cardiomegaly, Hx Congenital Heart Disease, Hx Congestive Heart Failure, Hx Coronary Artery Disease, Hx Deep Vein Thrombosis, Hx Embolism, Hx Hypercholesterolemia, Hx Hypotension, Hx Pacemaker/ICD, Hx Peripheral Vascular Disease, Hx Rheumatic Fever, Hx Syncope, Hx Valvular Heart Disease Respiratory History: Reports: Hx Pulmonary Embolism History: Reports: Other Problems/Disorders - CKD, BPH Musculoskeletal History: Reports: Hx Back Problems Sensory History: Reports: Hx Contacts or Glasses - GLASSES Denies: Hx Cataracts, Hx Eye Injury, Hx Eye Prosthesis, Hx Glaucoma, Hx Legally Blind, Hx Macular Degeneration, Hx Vision Problem, Hx Deafness, Hx Hearing Aid, Hx Hearing Problem Opthamlomology History: Reports: Hx Contacts or Glasses - GLASSES Denies: Hx Cataracts, Hx Eye Injury, Hx Eye Prosthesis, Hx Glaucoma, Hx Legally Blind, Hx Macular Degeneration, Hx Vision Problem Neurological History: Denies: Hx Dementia, Hx Developmental Delay, Hx Headaches, Hx Migraine, Hx Nerve Disease, Hx Seizures, Hx Spinal Cord Injury, Hx Transient Ischemic Attacks (TIA) Psychiatric History: Reports: Hx Anxiety - Cancer History Hx Chemotherapy: No - Surgical History Surgery Procedure, Year, and Place: wisdom teeth Hx Anesthesia Reactions: No - Immunization History Date of Tetanus Vaccine: unknown Date of Influenza Vaccine: up to date Infectious Disease History: No Infectious Disease History: Denies: Hx Clostridium Difficile, Hx Hepatitis, Hx Human Immunodeficiency Virus (HIV), Hx of Known/Suspected MRSA, Hx Shingles, Hx Tuberculosis, Hx Known/ Suspected VRE, Hx Known/Suspected VRSA, Traveled Outside the [place] in Last 30 Days - Family History Known Family History: Positive: Other - NEG: colon CA - Social History Alcohol Use: Occasionally Alcohol Amount: 3-4 glasses of wine per week Substance Use Type: Reports: None Hx Tobacco Use: No Smoking Status (MU): Never Smoked Tobacco Have You Smoked in the Last Year: No Review of Systems Positive: Fatigue. Negative: Fever Eyes: Negative ENT: Negative Cardiovascular: Negative Positive: Shortness Of Breath Gastrointestinal: Negative Genitourinary: Negative Musculoskeletal: Negative Skin: Negative Neurological/Mental Status: Negative Psychological: Normal All Other Systems Reviewed And Are Negative: Yes Physical Exam - Summary Physical Exam Summary: Patient is in no acute distress however he appears pallorous. Patient has no evidence of labored breathing and is able to speak in full unbroken sentences. Auscultation of the lungs reveals diffuse rales and wheezing. There is a noted murmur with auscultation of the heart with S1, S2. Triage Information Reviewed: Yes Vital Signs On Initial Exam: Initial Vitals Temp Pulse Resp BP Pulse Ox 98.4 F 82 22 114/54 87 06/25/19 22:54 06/25/19 22:54 06/25/19 22:54 06/25/19 22:54 06/25/19 22:54 Vital Signs Reviewed: Yes Appearance: Positive: Well-Appearing, No Pain Distress, Well-Nourished Skin: Positive: Warm, Skin Color Reflects Adequate Perfusion Eyes: Positive: EOMI, [place] ENT: Positive: Hearing grossly normal Respiratory/Lung Sounds: Positive: Breath Sounds Present, Decreased Breath Sounds, Rales, Wheezes. Negative: Unable to speak in full sentences, Fatigue Cardiovascular: Positive: RRR, S1, S2 Abdomen Description: Positive: Nontender, Soft Bowel Sounds: Positive: Present Musculoskeletal: Positive: Strength/ROM Intact Neurological: Positive: Sensory/Motor Intact, Alert, Oriented to Person Place, Time, Facial Symmetry, Speech Normal Psychiatric: Positive: Normal, Affect/Mood Appropriate AVPU Assessment: Alert Procedures - Sedation Patient Received Moderate/Deep Sedation with Procedure: No Diagnostics - Vital Signs Vital Signs Temp Pulse Resp BP Pulse Ox 06/25/19 22:59 95 06/25/19 22:54 98.4 F 82 22 114/54 87 - Laboratory Result Diagrams: 06/25/19 23:38 06/25/19 23:38 Lab Statement: Any lab studies that have been ordered have been reviewed, and results considered in the medical decision making process. Course/Dx - Course Course Of Treatment: Patient was evaluated in the emergency department today for shortness of breath. Vitals noted and stable. Patient was hypoxic on room air at 88% however he is able to maintain oxygen saturation above 95% on 2 L via nasal cannula. EKG was done promptly which shows no evidence of STEMI. There is significant ST depressions in leads 2, aVF, V4, V5, V6. Borderline left axis deviation, normal CO and QT interval. EKG has significant ST changes when compared to prior done on 06/11/2019. Chest x-ray was done which showed significant right-sided pleural effusion. Laboratory studies returned showing leukocytosis with white blood cell count of 13.3. C-reactive protein is 91. H& H returned at 5.4/16. Patients H&H was 7.9/23 on 06/26/19 at the time of his discharge for acute blood loss anemia due to GI bleed. and is elevated at 78 , creatinine 11.64. These are elevated however not significantly so due to his chronic renal disease. Lactic acid is elevated at 3.5. Troponin 1.28. These are likely elevated due to mediated ischemia secondary to acute blood loss anemia. BNP is elevated at 1093, which likely caused right-sided pleural effusion. Patient was given 2 units packed red blood cells for acute blood loss anemia. Rectal exam was done which showed melena. Occult stool pending. Patient was given Protonix drip for suspected GI bleed. Cardiology, Dr. Gibson was consulted at 0036 bleed his EKG changes were likely due to demand mediated ischemia with no evidence of posterior STEMI. Gastric urology, Dr. Trinh who believes the patient is likely having a recurrent upper GI bleed and needed admission to the hospital. Hospitalist, Dr. Seaman was consulted for admission the patient with a diagnosis of acute blood loss anemia, upper GI bleed, elevated troponin, elevated lactic acid, EKG changes due to demand mediated ischemia, right-sided pleural effusion, acute heart failure, chronic kidney disease. - Diagnoses Differential Diagnosis/HQI/PQRI: Positive: Airway Obstruction, Asthma, CHF, Pneumonia, Pneumothorax, Pulmonary Edema Provider Diagnoses: Elevated troponin, Dyspnea, Upper GI bleed, Anemia, Elevated lactic acid level , ESRD (end stage renal disease) Discharge ED - Sign-Out/Discharge Documenting (check all that apply): Patient Departure - Discharge Plan Condition: Fair Disposition: ADMITTED TO [facility] - Billing Disposition and Condition Condition: FAIR Disposition: Admitted to [facility]
[2019-06-25] MEDS ORDERED: Furosemide IV* 10 MG/ML VIAL (40 MG) IV SLOW PU ONE (23:44)
[2019-06-26 00:02] LABS: Hematocrit 16 % (42-52); Hemoglobin 5.4 g/dL (14.0-18.0); Mean Corpuscular HGB Conc 33 g/dL (31-36); Mean Corpuscular Hemoglobin 30 pg (27-31); Mean Corpuscular Volume 91 fL (80-94); Mean Platelet Volume 7.8 fL (7.4-10.4); Platelet Count 334 10^3/uL (150-450); Red Blood Count 1.79 10^6 /uL (4.18-5.48); Red Cell Distribution Width 17 % (10-15); White Blood Count 13.3 10^3/uL (3.5-10.8)
[2019-06-26 00:06] LABS: ALT 21 U/L (7-52); AST 26 U/L (13-39); Albumin 2.7 g/dL (3.2-5.2); Albumin/Globulin Ratio 0.8 (1-3); Alkaline Phosphatase 55 U/L (34-104); Anion Gap 17 mmol/L (2-11); BUN/Creatinine Ratio 6.7 (8-20); Blood Urea Nitrogen 78 mg/dL (6-24); C Reactive Protein 91.15 mg/L (<8.01); CO2 Carbon Dioxide 23 mmol/L (22-32); Calcium 8.4 mg/dL (8.6-10.3); Chloride 95 mmol/L (101-111); EGFR African American 5.1 (>60); EGFR Non-African American 4.2 (>60); Globulin 3.5 g/dL (2-4); Glucose 120 mg/dL (70-100); Potassium 3.7 mmol/L (3.5-5.0); Sodium 135 mmol/L (135-145); Total Protein 6.2 g/dL (6.4-8.9)
[2019-06-26 00:11] LABS: Troponin I 1.28 ng/mL (<0.03)
[2019-06-26] MEDS ORDERED: Pantoprazole* 80 mg IN NS 80 MG/250 ML BAG IV ONE (00:21)
[2019-06-26] MEDS ORDERED: Morphine INJ* 2 MG/ML 1 ML SYRINGE (TWO MG - NEW SYRINGE VERSION) IV PRN (00:55)
[2019-06-26] MEDS ORDERED: Albuterol/Ipratropium NEB.SOL* Albuterol 2.5 MG/Ipratropium 0.5 MG 3 ML INH PRN (00:55)
[2019-06-26 01:09] LABS: Activated Partial Thrombo Time 40.2 seconds (26.0-38.0); INR 0.99 (0.82-1.09)
[2019-06-26 01:26] LABS: ABS Lymphocytes 0.5 10^3/ul (1.0-4.8); ABS Monocytes 1.2 10^3/ul (0-0.8); ABS Neutrophils 11.5 10^3/ul (1.5-7.7); Eosinophil % 0.1 %; Lymphocyte % 3.7 %
[2019-06-26] MEDS ORDERED: NS 0.9% 1000 ML** 1,000 ML IV SCH (01:30)
[2019-06-26] MEDS: Pantoprazole* 80 mg IN NS 80 MG/250 ML BAG IV SCH ×3 (02:22→21:46)
[2019-06-26 03:24] LABS: Troponin I 1.89 ng/mL (<0.03)
--- NOTE | 2019-06-26 03:35 | HP ---
CC: Dr. Villatoro; Dr. Trinh; Dr. Mitchell; Dr. Block * HISTORY AND PHYSICAL: DATE OF ADMISSION: 06/26/19 PRIMARY CARE PROVIDER: Dr. Villatoro. CHIEF COMPLAINT: Shortness of breath and generalized weakness and dizziness. HISTORY OF PRESENT ILLNESS: Steve Vegas is an 83-year-old male who was just discharged from our facility on 06/14/19 for acute GI bleed. During that hospitalization, the patient had an endoscopy performed on 06/11/[address] Block with Endoclip placement to gastric ulcer and duodenal ulcers. He was stable at that point and was discharged on 06/14/19 to follow up with his primary care physician. The patient stated that he had been in his usual state of health for a couple of days post his discharge, but later on started experiencing lightheadedness, worsening shortness of breath and generalized weakness. He came into the emergency department and he was noted to have worsening right pleural effusion, hemoglobin of 5, melenic stool. The patient is going to be admitted with diagnosis of recurrence of his GI bleed. Please note that the patient is not anuric, he is still producing urine. PAST MEDICAL HISTORY: 1. 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 Sadler. 2. Atrial flutter, previously on Coumadin, which was discontinued duet to GI bleed. 3. Likely pulmonary embolism diagnosed in 2013 that was provoked by travel. 4. Hypertension. 5. History of anemia of chronic disease. 6. Dyslipidemia. MEDICATIONS: At home include: 1. Cartia XT 180 mg daily. 2. Crestor 5 mg at bedtime. 3. Protonix 40 mg b.i.d. 4. Toprol XL 50 mg daily. ALLERGIES: No known drug allergies. FAMILY HISTORY: Positive for mother, who of lymphoma at the age of 61. Father who of metastatic melanoma at the age of 76. SOCIAL HISTORY: The patient denies any current tobacco, alcohol or drug use. He lives with his daughter, Devorah Ashraf, who is his surrogate. REVIEW OF SYSTEMS: Please see history of present illness. All the remaining 12 systems were reviewed with the patient and were otherwise negative. PHYSICAL EXAMINATION GENERAL: The patient is a very pleasant 83-year-old male who is in no acute distress. The patient is alert and oriented x3. VITAL SIGNS: Blood pressure of 96/46, heart rate of 75 and regular, respiratory rate 19, oxygen saturation 92% on 3 L of oxygen via nasal cannula, temperature of 98.4. HEENT: Head is atraumatic, normocephalic. Eyes: Pupils are equal and reactive to light and accommodation. Oropharynx clear. Mucosa moist. NECK: Supple. No JVD. No bruits bilaterally. RESPIRATORY: Decreased breath sounds at the right lung base. CARDIOVASCULAR: Regular rate and rhythm. No murmur. ABDOMEN: Soft, nontender. Bowel sounds are present in all 4 quadrants. Peritoneal dialysis catheter is in place in the left lower quadrant with no evidence skin abnormalities. EXTREMITIES: There is no edema. Pulses are +2 bilaterally. There is no clubbing or cyanosis. SKIN: On evaluation of the skin, the patient is pale and appears to have mild jaundice like discoloration to his skin. PSYCHIATRIC: Oriented x3 with no evidence of anxiety or depression. LABORATORY DATA: Sodium 131, potassium 3.7, chloride 95, carbon dioxide 23, anion gap of 17, BUN 78, creatinine of 11.6. CBC: White blood cell count 13.3 , hemoglobin of 5.4, hematocrit of 16, and platelets of 334. INR was 0.99. PTT of 40.2. Lactic acid was noted to be 3.5. Troponin of 1.2. C- reactive protein of 91. Brain natriuretic peptide was 1093. The patient's EKG showed sinus rhythm with a heart rate of 72 beats per minute with deep inverted T waves in leads V3 to V6 as well as leads I and II. Those are new compared with EKG obtained just several weeks ago. Portable chest x-ray prior to be read by radiologist shows right-sided pleural effusion. ASSESSMENT AND PLAN: 1. An 83-year-old male with recent Endoclipping to gastric and duodenal ulcer, who presented with a gastrointestinal bleed again with symptomatic anemia. The patient is going to be transfused 2 units of packed red blood cells. Currently , his blood pressures are in the 80s, but hopefully his pressures will improve to the point that he will be able to go to cardiac monitor bed. I will talk with the cardio clinician in the morning and keep the patient n.p.o. The patient will need another endoscopy in the morning. 2. In regards to the patient's anemia, which is symptomatic. The patient is going to be transfused 2 units of packed red blood cells and hemoglobin and hematocrit are going to be checked frequently. 3. In regards to the patient's gastrointestinal bleed, as mentioned above, the patient is also going to be placed on Protonix drip. 4. For his end-stage renal disease, I will ask Nephrology to facilitate peritoneal dialysis early in the morning. The patient is still making urine and has significant right sided pleural effusion that may respond to diuresis, but unfortunately his systolic pressures will not allow me to use diuretic right now. The patient was treated with 40 mg IV Lasix in the ED. 5. The patient has new ischemic EKG changes in lateral leads with troponin of 1.28. Apart from shortness of breath, he has no complaints of chest pain. I suspect this is demand ischemia. We will follow up his troponins. We will also monitor with further EKGs as well as transthoracic echocardiogram will be obtained. 6. History of atrial flutter. Currently in sinus rhythm. I will try to continue his metoprolol succinate and diltiazem, although it may be difficult due to his hypotension. 7. The patient's code status is full. His surrogate is his daughter. 8. For DVT prophylaxis, the patient is going to be placed on sequential compression devices, as anticoagulation is contraindicated due to an acute gastrointestinal bleed. 9. The patient has acute hypoxemic respiratory failure due to combination of anemia as well as fluid overload. Currently, we will continue supplementation with oxygen. We will also discuss with Nephrology possibility of changing the patient's dialysis management to take out more fluid if possible. TIME SPENT: Approximately 72 minutes was spent on admission of this patient, more than half of that spent face to face with the patient during the interview and physical exam. [id number]/CPS #: [id number] OCSAR
[2019-06-26 06:43] LABS: Troponin I 2.75 ng/mL (<0.03)
[2019-06-26] MEDS ORDERED: Perflutren Lipid Microsphere* 3 ML VIAL ONE (08:22)
[2019-06-26 09:00] LABS: Hematocrit 22 % (42-52); Hemoglobin 7.4 g/dL (14.0-18.0)
[2019-06-26] MEDS ORDERED: Metoprolol Succinate XL TAB* 50 MG PO SCH ×2 (09:00)
[2019-06-26] MEDS ORDERED: Diltiazem CD CAP* 180 MG PO SCH ×2 (09:00)
[2019-06-26 09:31] LABS: Troponin I 4.68 ng/mL (<0.03)
--- NOTE | 2019-06-26 10:11 | PN ---
Hospitalist Progress Note Date of Service: 06/26/19 Mr. Vegas has history of ESRD on PD, atrial flutter (recently off coumadin due to GI bleed), h/o PE, HTN, recent episode of GIB due to PUD s/p endoclip on 2019. He was admitted on 06/25/19 with shortness of breath and weakness and was found to have hgb of 5.4. Acute blood loss anemia likely upper GI bleed s/p 2U PRBCs with appropriate response 2 large bore peripheral IVs hemodynamically stable (though of note, is on cardizem and metoprolol, so response is blunted) Acute hypoxic respiratory failure no baseline home o2 requirement, now on 10L O2 likely related to TACO in addition to being a day behind on PD (he started PD last night but had to come to the ED after only an hour) does not respond to IV lasix Volume overload multifactorial as described above will need nephrology's assistance with fluid status--PD catheter in place NSTEMI cardiology consulted ST depressions laterally no chest pain no AC due to GI bleed TTE done this morning, read pending (suspect also h/o ) continuing bb though cautiously--may need to re-evaluate Hgb is not at goal yet; unable to transfuse to 8 at this time due to compromised respiratory status ESRD on PD Nephrology consulted; again, he is behind on PD due to having to come to the hospital Atrial Flutter off anticoagulation since last admission rate controlled Pleural Effusion Transfer to ICU now, discussed with with Dr. Valverde.
[2019-06-26 10:51] LABS: Hematocrit 21 % (42-52); Hemoglobin 7.1 g/dL (14.0-18.0)
--- NOTE | 2019-06-26 11:06 | ECHO ---
*[facility]* [place] [address] Fax #: [phone] Transthoracic Echocardiogram Patient: Steve Vegas : 1935 Study Date: 06/26/2019 Age: 83 Gender: M HR: 86 bpm Height: 72 in /182.9 cm BSA: 2.04 m^2 Weight: 179.6 lb /81.6 kg BMI: 24.4 kg/m^2 *Senior Windows Systems Engineer: Devi Yo RD RN *Referring Physician: * Chrissie Seaman *Reading Physician: Leticia Low MD Indications: Abnormal EKG. History: Atrial flutter. Anemia. GI bleed. Pulmonary embolism. ESRD on peritoneal dialysis. Risk factors: Hypertension. Dyslipidemia. Conclusions Summary: - Left ventricle: Systolic function is at the lower limits of normal. The estimated ejection fraction is 50-55%. Hypokinesis of the mid-apicalanteroseptal myocardium. - Left atrium: The atrium is moderately dilated. - Mitral valve: There is moderate regurgitation. - Aortic valve: The findings are consistent with moderate stenosis. There is mild regurgitation. - Tricuspid valve: There is mild regurgitation. - Pulmonary arteries: Systolic pressure is mildly increased, estimated to be 39 mm Hg. Pulmonary artery pressure may be underestimated - C/t 10/01/2018, left ventricle ejection fraction was reported then 55-60% and no WMA. is stable. Mitral regurgitation was mild then. Study data: Transthoracic echocardiogram. Procedure: Transthoracic echocardiography was performed. Image quality was fair. Intravenous Definity 3 ml was administered for image enhancement. Complete 2D, spectral Doppler, and color flow Doppler. Location: Bedside. Patient status: Inpatient. Patient room number: 447-02. Findings Left ventricle: The cavity size is normal. Wall thickness is mildly increased. Systolic function is at the lower limits of normal. The estimated ejection fraction is 50-55%. Regional wall motion abnormalities: Hypokinesis of the mid-apicalanteroseptal myocardium. Doppler parameters are consistent with abnormal left ventricular relaxation (grade 1 diastolic dysfunction). Right ventricle: The cavity size is normal. Systolic function is normal. Left atrium: The atrium is moderately dilated. Right atrium: The atrium is mildly dilated. Mitral valve: The leaflets are mildly thickened. There is no evidence of stenosis. There is moderate regurgitation. Aortic valve: The valve is trileaflet. The leaflets are moderately thickened. The findings are consistent with moderate stenosis. There is mild regurgitation. Tricuspid valve: The valve is structurally normal. There is no evidence of stenosis. There is mild regurgitation. Pulmonic valve: The valve is structurally normal. There is no evidence of stenosis. There is trace regurgitation. Aorta: Aortic root: The aortic root is not dilated. Ascending aorta: The ascending aorta is not dilated. Aortic arch: The aortic arch is not dilated. Pericardium: There is no pericardial effusion. Pulmonary arteries: Not well visualized. Systolic pressure is mildly increased, estimated to be 39 mm Hg. Pulmonary artery pressure may be underestimated Systemic veins: Inferior vena cava: The vessel is normal in size. Respirophasic changes in dimension are absent. Measurements Left ventricle Value Ref Aortic valve Value Ref FAUSTINA, LAX 5.8 cm 4.2 - Nelda diam, ED 2.1 cm ---- 5.8 Nelda diam/bsa, ED 1.0 cm/m^2 ---- ESD, LAX (H) 4.4 cm 2.5 - Peak v, S 3.26 m/sec ---- 4.0 VTI, S 53.8 cm ---- FS, LAX (L) 24 % 25 - 43 Mean grad, S 25.0 mm Hg ---- PW, ED (H) 1.1 cm 0.6 - Peak grad, S 42.0 mm Hg ---- 1.0 LVOT/AV, VTI ratio 0.41 ---- IVS/PW, ED 0.99 -------- AYLEEN, VTI 1.28 cm^2 ---- E', lat nelda, TDI (L) 5.9 cm/sec >=10.0 AYLEEN, Vmax 1.06 cm^2 - --- E/e', lat nelda, TDI 24 -------- E', med nelda, TDI (L) 6.6 cm/sec >=7.0 Mitral valve Value R ef E/e', med nelda, TDI 21 -------- Peak E 1.41 m/sec ---- E', avg, TDI 6.3 cm/sec -------- Peak A 0.78 m/sec ---- E/e', avg, TDI (H) 23 <=14 Decel time 201 ms - --- Peak grad, D 8.0 mm Hg ---- LVOT Value Ref Peak E/A ratio 1.8 ---- Diam, S 2.00 cm -------- Area 3.1 cm^2 -------- Pulmonic valve Value Ref Peak sukumar, S 1.1 m/sec -------- Peak v, S 0.93 m/sec ---- VTI, S 22.0 cm -------- Peak grad, S 3.0 mm Hg ---- Peak grad, S 4 mm Hg -------- Mean grad, S 2 mm Hg -------- Tricuspid valve Value Ref SV 74 ml -------- Peak RV-RA grad, S 31 mm Hg ---- SV/bsa 36 ml/m^2 -------- Max TR sukumar 2.8 m/sec ---- Ventricular septum Value Ref Aortic root Value Ref IVS, ED (H) 1.1 cm 0.6 - Root diam 3.1 cm <4.2 1.0 Ascending aorta Value Ref Right ventricle Value Ref AAo AP diam, S 3.1 cm ---- FAUSTINA, LAX 3.1 cm -------- FAUSTINA minor ax, A4C (H) 4.1 cm 1.9 - Aortic arch Value Ref mid 3.5 Arch diam 2.8 cm ---- Left atrium Value Ref Decending aorta Value Ref ML dim, A4C 5.2 cm -------- Melita peak sukumar 0.55 m/sec ---- SI dim, A4C 5.7 cm -------- Vol/bsa, ES, 1-p (H) 42 ml/m^2 12 - 37 Inferior vena cava Value Ref A4C Diam 2.0 cm ---- Vol/bsa, ES, A/L (H) 43 ml/m^2 16 - 34 Right atrium Value Ref ML dim, ES, A4C 4.1 cm 2.6 - 4.4 SI dim, ES, A4C (H) 5.5 cm 3.4 - 5.3 Estimated RAP 8 mm Hg -------- Legend: (L) and (H) norbert values outside specified reference range. Prepared and electronically signed by Leticia Gibson MD 06/26/2019 11:05
[2019-06-26 12:42] LABS: Hematocrit 21 % (42-52)
[2019-06-26 13:14] LABS: Body Fluid Source Pleural Fluid
[2019-06-26 13:18] LABS: Troponin I 6.49 ng/mL (<0.03)
--- NOTE | 2019-06-26 15:01 | OP ---
<Mana Rivera - Last Filed: 06/26/19 14:54> Operative Report - Blank - Operative Report Date of Operation: 06/26/19 Note: Thoracentesis Procedure Note Indication: pleural effusion Diagnosis: Right pleural effusion Performed by: Mana Rivera MD supervised by Dr. Valverde Consent: Informed consent taken; placed in bedside chart Risks and benefits of procedure, including but not limited to hemorrhage, pneumothorax, broncho/pulm fistula, infection were discussed. [place] Protocol: Time-out was performed and the correct patient and site were verified -Previous imaging and lab work (coags/platelets), medications were reviewed. -Full sterile precautions with Chlorhexidine/full drapes/gowns/gloves were utilized. -Ultrasound was used to visualize the appropriate intercostal space for access. -7th intercostal space was marked, SC lidocaine used for local anesthesia. -18 gauge needle was used to enter pleural space, while avoid neuro/vasc bundle. Entry into pleural space confirmed with return of dark bloody fluid, and drainage catheter was passed into space with good return of fluid to check confirmation -Fluid was drained in amount of 1800cc -No immediate complications or hemodynamic instability during drainage noted -Cathetor was removed after drainage and dressing applied to chest wall site -Specimen/Fluid sent for cell count/cytology/gram stain/culture and cytology Patient tolerated procedure well, no immediate complications noted. Post Procedure CXR: Pending <Elizabeth Valverde - Last Filed: 06/26/19 19:12> Operative Report - Blank - Operative Report Note: I was present and supervised the procedure. Agree with above documentation.
[2019-06-26 15:09] LABS: Body Fluid Mono 33 %
[2019-06-26 15:19] LABS: Hematocrit 20 % (42-52); Hemoglobin 6.9 g/dL (14.0-18.0)
--- NOTE | 2019-06-26 15:52 | CONS ---
CARDIOLOGY CONSULTATION DATE OF CONSULTATION: 06/26/2019. ATTENDING PHYSICIAN: Dr. Gibson * (dictated by Amna Taylor NP). REASON FOR CONSULTATION: NSTEMI, GI bleed. PRIMARY TECHNOLOGY PROGRAM MANAGER: Historically Dr. Ame Mitchell. PRIMARY LIME BOILER: Historically Dr. Michel. PRIMARY CARE PHYSICIAN: Dr. Villatoro. CHIEF COMPLAINT: Substernal epigastric discomfort, shortness of breath, ongoing melena. HISTORY OF PRESENT ILLNESS: This is a pleasant, 83-year-old male patient who follows with Dr. Ame Mitchell of our practice due to a notable history of moderate aortic stenosis in addition to paroxysmal A-fib, aflutter, historically on Coumadin which has been discontinued since his recent admission on 06/11/2019 due to upper GI bleed. In the past, he had a pulmonary embolism with associated pericardial effusion, hyperlipidemia, sick sinus syndrome, and end-stage renal disease on peritoneal dialysis daily. The patient states that after his recent admission for upper GI bleed that required three units of packed red blood cells, discontinuation of Coumadin therapy and clipping of gastric ulcer, he was discharged to home. Clinically, he was doing well, states that he did not have any melena for approximately three to four days after discharge when melena started to reoccur. He states he notified his primary care provider, Dr. Villatoro, who prescribed ferrous sulfate. In discussion with his shrimp picker, it was decided to discontinue ferrous sulfate and instead administer Epogen with peritoneal dialysis. He admits to have an outpatient hemoglobin that was 7.8 a week ago. He states he has had ongoing melena again since approximately four days after recent discharge. He adds that he has also been noticing exertional dyspnea which has been new and ongoing for the last month. He denies chest pain, although he did state yesterday around 1:00 p.m. after eating, he developed profound substernal epigastric discomfort with associated nausea and vomiting, no hemoptysis, no hematemesis. He states episode was constant and ongoing for about four hours. He has not had a recurrent episode of epigastric discomfort since yesterday evening. He states he has ongoing shortness of breath and is inquiring when he will undergo dialysis. He states that he only did one hour of peritoneal dialysis yesterday. He denies dizziness, syncope, palpitations. He reports not consuming any NSAIDs or aspirin and is able to clarify that he has not been taking Coumadin since it was discontinued on the last admission the beginning of June 2019. He offers no further complaints. He denies ever experiencing epigastric discomfort in the past. Last echocardiogram according to our medical records was September of 2018. Per report, LVF is 55 to 60 percent, mild aortic insufficiency, moderate aortic stenosis, peak gradient 41, mean gradient 25 with mild mitral regurgitation. Last ischemic evaluation is unknown. There is nothing at [facility] in regards to prior cardiac catheterization or stress testing. PAST MEDICAL HISTORY: 1. End-stage renal disease on peritoneal dialysis every day. 2. Hypertension. 3. Paroxysmal A-fib, aflutter. 4. Pericarditis. 5. Sick sinus syndrome. 6. Moderate aortic stenosis. 7. Mild mitral insufficiency. 8. Prior PE with associated pericardial effusion. 9. Hyperlipidemia. 10. Peptic ulcer disease. 11. Recent upper GI bleed June 2019, on Coumadin therapy. PAST SURGICAL HISTORY: EGD, tooth extraction, prior gastric ulcer clipping. HOME MEDICATIONS: Per admission med rec: 1. Diltiazem 180 mg a day. 2. Rosuvastatin 5 mg a day. 3. Pantoprazole 40 mg p.o. b.i.d. 4. Metoprolol 50 mg a day. ALLERGIES: No known drug allergies. FAMILY HISTORY: Noncontributory. SOCIAL HISTORY: The patient is , lives home with his . He denies tobacco use. He drinks alcohol socially. He denies drug use. He ambulates independently. REVIEW OF SYSTEMS: All systems have been reviewed and are otherwise negative, except as above mentioned in the HPI. PHYSICAL EXAMINATION: General: The patient has conversational dyspnea, appears in mild respiratory distress. He is alert and oriented times three, pleasant, appears ill. Vital signs: Temperature 97.9, pulse 82, respirations 24, oxygenation 90 percent on 6 liters nasal cannula, blood pressure 109/57. HEENT: Head is atraumatic, normocephalic. Oral mucosa is moist. Nasal cannula , oxygen in situ. Neck: Supple. Trachea midline. Positive JVD. No carotid bruits. Cardiac: Normal S1, S2. Regular rate and rhythm. Grade 3/6 early systolic murmur auscultated across the entire pericardium. No gallop or rub. Lungs auscultated posteriorly. Diffuse rales noted throughout with diminished breath sounds in bilateral bases. Respirations are labored, rate at 24. /GI : Peritoneal catheter in place left lower quadrant. Normoactive bowel sounds times four. No hepatomegaly. Nontender to palpation. Extremities: No pedal edema. No clubbing. No cyanosis. Peripheral vascular: 3+ brachial pulse, 2+ dorsalis pedis pulse palpated bilaterally and symmetrically. LABORATORY DATA: Blood work reviewed from 06/25/2019: White count 3.3, hemoglobin 06/26/2019 7.1, was initially 5.4, hematocrit 21, platelets are 334, 000; sodium 135, potassium 3.7, BUN 78, creatinine 11.64, troponin #4 is 4.68, BNP 1,093, C- reactive protein 91.1. ECG reveals a sinus rhythm, rate [address] segment depression upwards of 2 mm in the lateral leads, no ST segment elevation appreciated. Echocardiogram pending. ASSESSMENT AND PLAN: 1. Subacute GI bleed: Patient recently had an upper GI bleed 06/11/2019 on Coumadin therapy which has since been discontinued. He underwent clipping for ulcer. The patient was discharged home with a hemoglobin of 7.9. He states it was 7.8 a week ago. Four days after discharge, he developed recurrent melena which has been ongoing. The patient presented with a hemoglobin of 5.4, received packed red blood cells. Recommend transfusing to a hemoglobin of 8. Currently, he is volume overloaded which is a barrier in regards to ongoing blood transfusion. He did not receive his full peritoneal dialysis yesterday and has not been dialyzed today. Recommend dialyzing patient and continuing to transfuse again to a hemoglobin of 8. GI evaluation pending. The patient is on Protonix at this current time. 2. NSTEMI: The patient had a four hour period of epigastric discomfort. Troponin is 4.68, has not peaked. Will continue to cycle isoenzymes. He has diffuse, but more pronounced later ST segment depression. Will update echocardiogram to evaluate wall motion, LV function, and severity of aortic stenosis. He is currently not on aspirin therapy due to above #1 and is not anticoagulated due to above #1. This appears to be a type 2 infarct due to above #1. Will follow closely. Will reduce Metoprolol to improve cardiac output, again due to aortic stenosis. Avoid nitrate therapy. Avoid afterloading agents. 3. History of moderate aortic stenosis: Peak gradient 41, mean gradient 25 on September of 2018 echocardiogram. Please avoid use of nitrate and afterload reducing agents. Will reduce Metoprolol to improve systolic blood pressure. Will update echocardiogram and make further recommendations. 4. History of end-stage renal disease: On peritoneal dialysis daily. Nephrology consult pending. It appears the patient is in need of dialysis given conversational dyspnea and volume overload. 5. History of paroxysmal A-fib flutter: Historically on Coumadin which has been on hold since recent upper GI bleed 06/11/2019. Currently in sinus rhythm. Will reduce Metoprolol to 50 a day. 6. Disposition: Pending course. Patient condition guarded at best. Will follow patient closely and make further recommendations. Dr. Gibson has personally seen and examined the patient and agrees with the above assessment and plan. Any future questions or concerns, please do not hesitate to contact our service. AMNA TAYLOR NP [id number]/CPS #: [id number] [facility]
[2019-06-26 15:55] LABS: Troponin I 8.28 ng/mL (<0.03)
--- NOTE | 2019-06-26 16:32 | PN ---
<Mana Rivera - Last Filed: 06/26/19 18:16> Date of Service: 06/26/19 Critical Care Services: Patient was transferred to ICU 06/25 1000am due to hypoxic respiratory failure. Was placed on Vapotherm 40L 100% with spO2>95%. Thoracocentesis was done, 1800ml bloody pleural effusion was aspirated, sent for routine and culture. Patient felt improved after thoracocentesis, able to wean down Vapotherm further. Tele: NSR, HR 77 O2: Vapotherm 40L 80%. Vital Signs: Temp Pulse Resp BP SpO2 FiO2 98.4 F 70 21 94/52 91 89 06/26/19 12:36 06/26/19 14:15 06/26/19 16:00 06/26/19 14:15 06/26/19 14:15 06/25 16:00 Physical Exam: Constitutional: awake, alert, no distress, no diaphoresis Head: normocephalic, atraumatic Eyes: no pallor, no icterus ENT: moist mucous membranes Neck: soft, supple, no jvd, no stridor CVS: normal rate, regular, no murmur Chest/Resp: right lower lobe decreased air entry, diffuse crackles heard, no acc muscle use Abdomen/GI: soft, nontender, nondistended, BS+ Ext/Msk: warm, pulses+, no edema Skin: intact, warm Neuro: awake, alert, orientedx3, moving all extremities, no gross focal deficit Psych: normal affect Fluid Balance (Past 24 Hours): I= O= Net Intake & Output 06/24/19 06/25/19 06/26/19 06/27/19 06:59 06:59 06:59 06:59 Intake Total 4 177 Output Total 3600 Balance 4 -3423 Weight 84.731 kg Intake: IV Fluids 4 102 NS (0.9%) 102 Medicated IV 75 GEN - Pantoprazole/ 75 Protonix Oral 0 0 Output: Urine 0 Irrigation 3600 Labs: Laboratory Results - last 24 hr 06/25/19 06/25/19 06/25/19 23:38 23:38 23:38 WBC 13.3 H RBC 1.79 L Hgb 5.4 L* Hct 16 L MCV 91 MCH 30 MCHC 33 RDW 17 H Plt Count 334 MPV 7.8 Neut % (Auto) 86.5 Lymph % (Auto) 3.7 Saunders % (Auto) 9.4 Eos % (Auto) 0.1 Baso % (Auto) 0.3 Absolute Neuts (auto) 11.5 H Absolute Lymphs (auto) 0.5 L Absolute Monos (auto) 1.2 H Absolute Eos (auto) 0.0 Absolute Basos (auto) 0.0 Absolute Nucleated RBC 0.0 Nucleated RBC % 0.0 INR (Anticoag Therapy) APTT Sodium 135 Potassium 3.7 Chloride 95 L Carbon Dioxide 23 Anion Gap 17 H BUN 78 H Creatinine 11.64 H Est GFR ( Amer) 5.1 Est GFR (Non-Af Amer) 4.2 BUN/Creatinine Ratio 6.7 L Glucose 120 H Lactic Acid 3.5 H* Calcium 8.4 L Total Bilirubin 0.30 AST 26 ALT 21 Alkaline Phosphatase 55 Troponin I 1.28 H* C-Reactive Protein 91.15 H B-Natriuretic Peptide Total Protein 6.2 L Albumin 2.7 L Globulin 3.5 Albumin/Globulin Ratio 0.8 L Fluid Source Fluid Volume Fluid Color Fluid Appearance Fluid WBC Fluid RBC Fluid Tot Cell Count Fluid Neutrophils Fluid Lymphocytes Fluid Monocytes Fluid Eosinophils Fluid Basophils Blood Type Antibody Screen Crossmatch 06/25/19 06/25/19 06/26/19 23:38 23:38 00:28 WBC RBC Hgb Hct MCV MCH MCHC RDW Plt Count MPV Neut % (Auto) Lymph % (Auto) Saunders % (Auto) Eos % (Auto) Baso % (Auto) Absolute Neuts (auto) Absolute Lymphs (auto) Absolute Monos (auto) Absolute Eos (auto) Absolute Basos (auto) Absolute Nucleated RBC Nucleated RBC % INR (Anticoag Therapy) 0.99 APTT 40.2 H Sodium Potassium Chloride Carbon Dioxide Anion Gap BUN Creatinine Est GFR ( Amer) Est GFR (Non-Af Amer) BUN/Creatinine Ratio Glucose Lactic Acid Calcium Total Bilirubin AST ALT Alkaline Phosphatase Troponin I C-Reactive Protein B-Natriuretic Peptide 1093 H Total Protein Albumin Globulin Albumin/Globulin Ratio Fluid Source Fluid Volume Fluid Color Fluid Appearance Fluid WBC Fluid RBC Fluid Tot Cell Count Fluid Neutrophils Fluid Lymphocytes Fluid Monocytes Fluid Eosinophils Fluid Basophils Blood Type O Positive Antibody Screen Negative Crossmatch See Detail 06/26/19 06/26/19 06/26/19 02:52 06:14 08:50 WBC RBC Hgb 7.4 L Hct 22 L MCV MCH MCHC RDW Plt Count MPV Neut % (Auto) Lymph % (Auto) Saunders % (Auto) Eos % (Auto) Baso % (Auto) Absolute Neuts (auto) Absolute Lymphs (auto) Absolute Monos (auto) Absolute Eos (auto) Absolute Basos (auto) Absolute Nucleated RBC Nucleated RBC % INR (Anticoag Therapy) APTT Sodium Potassium Chloride Carbon Dioxide Anion Gap BUN Creatinine Est GFR ( Amer) Est GFR (Non-Af Amer) BUN/Creatinine Ratio Glucose Lactic Acid Calcium Total Bilirubin AST ALT Alkaline Phosphatase Troponin I 1.89 H* 2.75 H* C-Reactive Protein B-Natriuretic Peptide Total Protein Albumin Globulin Albumin/Globulin Ratio Fluid Source Fluid Volume Fluid Color Fluid Appearance Fluid WBC Fluid RBC Fluid Tot Cell Count Fluid Neutrophils Fluid Lymphocytes Fluid Monocytes Fluid Eosinophils Fluid Basophils Blood Type Antibody Screen Crossmatch 06/26/19 06/26/19 06/26/19 08:50 10:25 11:48 WBC RBC Hgb 7.1 L Hct 21 L MCV MCH MCHC RDW Plt Count MPV Neut % (Auto) Lymph % (Auto) Saunders % (Auto) Eos % (Auto) Baso % (Auto) Absolute Neuts (auto) Absolute Lymphs (auto) Absolute Monos (auto) Absolute Eos (auto) Absolute Basos (auto) Absolute Nucleated RBC Nucleated RBC % INR (Anticoag Therapy) APTT Sodium Potassium Chloride Carbon Dioxide Anion Gap BUN Creatinine Est GFR ( Amer) Est GFR (Non-Af Amer) BUN/Creatinine Ratio Glucose Lactic Acid Calcium Total Bilirubin AST ALT Alkaline Phosphatase Troponin I 4.68 H* C-Reactive Protein B-Natriuretic Peptide Total Protein Albumin Globulin Albumin/Globulin Ratio Fluid Source Pleural fluid Fluid Volume 7 Fluid Color Red Fluid Appearance Bloody Fluid WBC 5659 Fluid RBC 740042 Fluid Tot Cell Count 100 Fluid Neutrophils 11 Fluid Lymphocytes 52 Fluid Monocytes 33 Fluid Eosinophils 3 Fluid Basophils 1 Blood Type Antibody Screen Crossmatch 06/26/19 06/26/19 06/26/19 12:25 12:25 15:10 WBC RBC Hgb 7.0 L 6.9 L Hct 21 L 20 L MCV MCH MCHC RDW Plt Count MPV Neut % (Auto) Lymph % (Auto) Saunders % (Auto) Eos % (Auto) Baso % (Auto) Absolute Neuts (auto) Absolute Lymphs (auto) Absolute Monos (auto) Absolute Eos (auto) Absolute Basos (auto) Absolute Nucleated RBC Nucleated RBC % INR (Anticoag Therapy) APTT Sodium Potassium Chloride Carbon Dioxide Anion Gap BUN Creatinine Est GFR ( Amer) Est GFR (Non-Af Amer) BUN/Creatinine Ratio Glucose Lactic Acid Calcium Total Bilirubin AST ALT Alkaline Phosphatase Troponin I 6.49 H* C-Reactive Protein B-Natriuretic Peptide Total Protein Albumin Globulin Albumin/Globulin Ratio Fluid Source Fluid Volume Fluid Color Fluid Appearance Fluid WBC Fluid RBC Fluid Tot Cell Count Fluid Neutrophils Fluid Lymphocytes Fluid Monocytes Fluid Eosinophils Fluid Basophils Blood Type Antibody Screen Crossmatch 06/26/19 06/26/19 15:10 15:30 WBC RBC Hgb Hct MCV MCH MCHC RDW Plt Count MPV Neut % (Auto) Lymph % (Auto) Saunders % (Auto) Eos % (Auto) Baso % (Auto) Absolute Neuts (auto) Absolute Lymphs (auto) Absolute Monos (auto) Absolute Eos (auto) Absolute Basos (auto) Absolute Nucleated RBC Nucleated RBC % INR (Anticoag Therapy) APTT Sodium Potassium Chloride Carbon Dioxide Anion Gap BUN Creatinine Est GFR ( Amer) Est GFR (Non-Af Amer) BUN/Creatinine Ratio Glucose Lactic Acid 2.0 Calcium Total Bilirubin AST ALT Alkaline Phosphatase Troponin I 8.28 H* C-Reactive Protein B-Natriuretic Peptide Total Protein Albumin Globulin Albumin/Globulin Ratio Fluid Source Fluid Volume Fluid Color Fluid Appearance Fluid WBC Fluid RBC Fluid Tot Cell Count Fluid Neutrophils Fluid Lymphocytes Fluid Monocytes Fluid Eosinophils Fluid Basophils Blood Type Antibody Screen Crossmatch Studies: Echocardiogram 06/25: EF 55-60%, hypokinesis of mid- apicallateralseptal myocardium, moderate aortic stenosis. Last echo in September 2018 no RWA Nutrition: npo except ice chips Impression: Mr. Vegas has history of ESRD on PD, atrial flutter (recently off coumadin due to GI bleed), h/o PE, HTN, recent episode of GIB due to PUD s/p endoclip on 2019. He was admitted on 06/25/19 with shortness of breath and weakness, found to have hgb of 5.4. He desaturated quickly after 2U PRBC transfusion, found to be in acute hypoxic respiratory failure as well as NSTEMI. 1. Acute blood loss anemia likely upper GI bleed as well as blood loss in pleural effusion 2. Acute hypoxic respiratory failure- multifactorial, TACO,miss out PD session, right pleural effusion 3. NSTEMI (Type 2) for conversative mgt now due to gi bleed and respiratory failure 4. Right pleural effusion 5. ESRD on PD 6. Atrial Flutter not on coumadin due to GI bleed since last adm 7. History of PE 8. PUD s/p endoclip 06/10 9. HTN 10. Aortic stenosis Plan: Neuro- alert and oriented -no active issue. CVS- NSTEMI, not candidate for DAPT or anticog or cath due to his GI bleed -echocardiogram 06/25: EF 55-60%, hypokinesis of mid- apicallateralseptal myocardium, moderate aortic stenosis. Last echo in September 2018 no RWA -appreciate cardio input, reduce metoprol -continue to trend trop, keep Hb>8 -avoid nitrates and afterloading agents Resp- right side pleural tap 06/25, 1.8L bloody effusion removed, exudative in nature, awaiting cs and cytology result -keep vapotherm, Wean Fio2 to keep sat>92% -repeat CXR post thoracocentesis: pleural effusion improving, new left infiltrate -patient has this new left infiltrate after transfusion (develop within 24 hours ), no infective sx, diff: hospital acquired pneumonia, transfusion related lung injury - will do CT chest ID- start iv ceftriaxone and azithromycin for new infiltrate GI- -Nutrition: npo for now due to acute bleed - iv pantoprazole continuous - top up Hb, target 8 - scope once patient stablized in respiratory status - gastro following Renal- -will keep PD over next 24 hours - appreciate nephrology consult Heme- transfuse 1U PRBC slowly, target Hb 8 - repeat Hb tomorrow morning Endo- Maintain BG<200, insulin protocol as needed Musculsk- pressure ulcer prophylaxis. Bedrest. Wounds- none Nutrition- npo for now due to bleed DVT prophylaxis: hold off due to anemia and gi bleed GI prophylaxis: iv ppi Central Line: no Arterial Line: no Mackey Catheter: no Disposition: Admit to ICU; Expected LOS>2 midnights; Patient requires Critical Care/ICU for acute respiratory failure, GI bleed, pleural effusion Patient Clinical Status: improved Code Status: full code <Elizabeth Valverde - Last Filed: 06/26/19 19:30> Vital Signs: Temp Pulse Resp BP SpO2 FiO2 98.6 F 79 21 118/58 94 100 06/26/19 16:00 06/26/19 18:30 06/26/19 18:30 06/26/19 18:30 06/26/19 18:30 06/25 18:07 Physical Exam: Gen: HEENT: Lungs: Cardiac: Abdomen: Extremities: Neuro: Fluid Balance (Past 24 Hours): I= O= Net Intake & Output 06/24/19 06/25/19 06/26/19 06/27/19 06:59 06:59 06:59 06:59 Intake Total 4 177 Output Total 3600 Balance 4 -3423 Weight 186 lb 12.8 oz Intake: IV Fluids 4 102 NS (0.9%) 102 Medicated IV 75 GEN - Pantoprazole/ 75 Protonix Oral 0 0 Output: Urine 0 Irrigation 3600 Labs: Laboratory Results - last 24 hr 06/25/19 06/25/19 06/25/19 23:38 23:38 23:38 WBC 13.3 H RBC 1.79 L Hgb 5.4 L* Hct 16 L MCV 91 MCH 30 MCHC 33 RDW 17 H Plt Count 334 MPV 7.8 Neut % (Auto) 86.5 Lymph % (Auto) 3.7 Saunders % (Auto) 9.4 Eos % (Auto) 0.1 Baso % (Auto) 0.3 Absolute Neuts (auto) 11.5 H Absolute Lymphs (auto) 0.5 L Absolute Monos (auto) 1.2 H Absolute Eos (auto) 0.0 Absolute Basos (auto) 0.0 Absolute Nucleated RBC 0.0 Nucleated RBC % 0.0 INR (Anticoag Therapy) APTT Sodium 135 Potassium 3.7 Chloride 95 L Carbon Dioxide 23 Anion Gap 17 H BUN 78 H Creatinine 11.64 H Est GFR ( Amer) 5.1 Est GFR (Non-Af Amer) 4.2 BUN/Creatinine Ratio 6.7 L Glucose 120 H Lactic Acid 3.5 H* Calcium 8.4 L Total Bilirubin 0.30 AST 26 ALT 21 Alkaline Phosphatase 55 Troponin I 1.28 H* C-Reactive Protein 91.15 H B-Natriuretic Peptide Total Protein 6.2 L Albumin 2.7 L Globulin 3.5 Albumin/Globulin Ratio 0.8 L Fluid Source Fluid Volume Fluid Color Fluid Appearance Fluid WBC Fluid RBC Fluid Tot Cell Count Fluid Neutrophils Fluid Lymphocytes Fluid Monocytes Fluid Eosinophils Fluid Basophils Blood Type Antibody Screen Crossmatch 06/25/19 06/25/19 06/26/19 23:38 23:38 00:28 WBC RBC Hgb Hct MCV MCH MCHC RDW Plt Count MPV Neut % (Auto) Lymph % (Auto) Saunders % (Auto) Eos % (Auto) Baso % (Auto) Absolute Neuts (auto) Absolute Lymphs (auto) Absolute Monos (auto) Absolute Eos (auto) Absolute Basos (auto) Absolute Nucleated RBC Nucleated RBC % INR (Anticoag Therapy) 0.99 APTT 40.2 H Sodium Potassium Chloride Carbon Dioxide Anion Gap BUN Creatinine Est GFR ( Amer) Est GFR (Non-Af Amer) BUN/Creatinine Ratio Glucose Lactic Acid Calcium Total Bilirubin AST ALT Alkaline Phosphatase Troponin I C-Reactive Protein B-Natriuretic Peptide 1093 H Total Protein Albumin Globulin Albumin/Globulin Ratio Fluid Source Fluid Volume Fluid Color Fluid Appearance Fluid WBC Fluid RBC Fluid Tot Cell Count Fluid Neutrophils Fluid Lymphocytes Fluid Monocytes Fluid Eosinophils Fluid Basophils Blood Type O Positive Antibody Screen Negative Crossmatch See Detail 06/26/19 06/26/19 06/26/19 02:52 06:14 08:50 WBC RBC Hgb 7.4 L Hct 22 L MCV MCH MCHC RDW Plt Count MPV Neut % (Auto) Lymph % (Auto) Saunders % (Auto) Eos % (Auto) Baso % (Auto) Absolute Neuts (auto) Absolute Lymphs (auto) Absolute Monos (auto) Absolute Eos (auto) Absolute Basos (auto) Absolute Nucleated RBC Nucleated RBC % INR (Anticoag Therapy) APTT Sodium Potassium Chloride Carbon Dioxide Anion Gap BUN Creatinine Est GFR ( Amer) Est GFR (Non-Af Amer) BUN/Creatinine Ratio Glucose Lactic Acid Calcium Total Bilirubin AST ALT Alkaline Phosphatase Troponin I 1.89 H* 2.75 H* C-Reactive Protein B-Natriuretic Peptide Total Protein Albumin Globulin Albumin/Globulin Ratio Fluid Source Fluid Volume Fluid Color Fluid Appearance Fluid WBC Fluid RBC Fluid Tot Cell Count Fluid Neutrophils Fluid Lymphocytes Fluid Monocytes Fluid Eosinophils Fluid Basophils Blood Type Antibody Screen Crossmatch 06/26/19 06/26/19 06/26/19 08:50 10:25 11:48 WBC RBC Hgb 7.1 L Hct 21 L MCV MCH MCHC RDW Plt Count MPV Neut % (Auto) Lymph % (Auto) Saunders % (Auto) Eos % (Auto) Baso % (Auto) Absolute Neuts (auto) Absolute Lymphs (auto) Absolute Monos (auto) Absolute Eos (auto) Absolute Basos (auto) Absolute Nucleated RBC Nucleated RBC % INR (Anticoag Therapy) APTT Sodium Potassium Chloride Carbon Dioxide Anion Gap BUN Creatinine Est GFR ( Amer) Est GFR (Non-Af Amer) BUN/Creatinine Ratio Glucose Lactic Acid Calcium Total Bilirubin AST ALT Alkaline Phosphatase Troponin I 4.68 H* C-Reactive Protein B-Natriuretic Peptide Total Protein Albumin Globulin Albumin/Globulin Ratio Fluid Source Pleural fluid Fluid Volume 7 Fluid Color Red Fluid Appearance Bloody Fluid WBC 5659 Fluid RBC 493281 Fluid Tot Cell Count 100 Fluid Neutrophils 11 Fluid Lymphocytes 52 Fluid Monocytes 33 Fluid Eosinophils 3 Fluid Basophils 1 Blood Type Antibody Screen Crossmatch 06/26/19 06/26/19 06/26/19 12:25 12:25 15:10 WBC RBC Hgb 7.0 L 6.9 L Hct 21 L 20 L MCV MCH MCHC RDW Plt Count MPV Neut % (Auto) Lymph % (Auto) Saunders % (Auto) Eos % (Auto) Baso % (Auto) Absolute Neuts (auto) Absolute Lymphs (auto) Absolute Monos (auto) Absolute Eos (auto) Absolute Basos (auto) Absolute Nucleated RBC Nucleated RBC % INR (Anticoag Therapy) APTT Sodium Potassium Chloride Carbon Dioxide Anion Gap BUN Creatinine Est GFR ( Amer) Est GFR (Non-Af Amer) BUN/Creatinine Ratio Glucose Lactic Acid Calcium Total Bilirubin AST ALT Alkaline Phosphatase Troponin I 6.49 H* C-Reactive Protein B-Natriuretic Peptide Total Protein Albumin Globulin Albumin/Globulin Ratio Fluid Source Fluid Volume Fluid Color Fluid Appearance Fluid WBC Fluid RBC Fluid Tot Cell Count Fluid Neutrophils Fluid Lymphocytes Fluid Monocytes Fluid Eosinophils Fluid Basophils Blood Type Antibody Screen Crossmatch 06/26/19 06/26/19 15:10 15:30 WBC RBC Hgb Hct MCV MCH MCHC RDW Plt Count MPV Neut % (Auto) Lymph % (Auto) Saunders % (Auto) Eos % (Auto) Baso % (Auto) Absolute Neuts (auto) Absolute Lymphs (auto) Absolute Monos (auto) Absolute Eos (auto) Absolute Basos (auto) Absolute Nucleated RBC Nucleated RBC % INR (Anticoag Therapy) APTT Sodium Potassium Chloride Carbon Dioxide Anion Gap BUN Creatinine Est GFR ( Amer) Est GFR (Non-Af Amer) BUN/Creatinine Ratio Glucose Lactic Acid 2.0 Calcium Total Bilirubin AST ALT Alkaline Phosphatase Troponin I 8.28 H* C-Reactive Protein B-Natriuretic Peptide Total Protein Albumin Globulin Albumin/Globulin Ratio Fluid Source Fluid Volume Fluid Color Fluid Appearance Fluid WBC Fluid RBC Fluid Tot Cell Count Fluid Neutrophils Fluid Lymphocytes Fluid Monocytes Fluid Eosinophils Fluid Basophils Blood Type Antibody Screen Crossmatch Plan: Attending physician attestation: Pt seen and examined at bedside. Plan of care discussed with Dr Rivera. Agree with above documentation. Pt was transferred today from the floor for NSTEMI, hypoxic resp failure, GI bleed. Pt was noted to have large rt effusion, underwent thoracentesis with removal of ~2L of serosanguinous fluid, labs pending. Pt with symptomatic benefit from thoracentesis. S/p 1 unit pRBC, no further bleeding noted, monitor H&H closely. GI f/u appreciated. C/w PPI. Post thoracenteiss CXR showed density near lt hilum- PNA versus hilar mass, on abx for PNA. F/u cytology from pleural fluid NSTEMI likely 2/2 hypoxic and stress induced, cardio consult appreciated. ESRD on PD, c/w PD for 24hrs, renal on board. Will continue close monitoring in ICU. Critical Care Time: 30 min
--- NOTE | 2019-06-26 18:46 | CONSULT ---
Consult Consult: Reason for consult: ESRD on PD, dyspnea Requesting provider: Dr. Mana Rivera MD History of present illness: Mr. Vegas is a very nice 83 yo gentleman who was admitted for worsening shortness of breath. He has ESRD due to HTN. He was admitted within the last month for acute anemia due to UGI. EGD at that time showed 2 areas of nodularity in the antrum and a duodenal ulcer. They were all clipped. Most recent hemoglobin after this hospitalization, was 7.4 gm/dl. On the day of admission he was found to have a hemoglobin of 5 gm/dl. He had black stool at the time of his previous admission which cleared completely after d/c. He was then started on oral iron by his primary care doctor and his stool started to get darker again. He denies BRBPR. He did not vomit any dark material. He missed most of his dialysis on the night before admission due to not feeling well with nausea, stomach upset and shortness of breath with minimal exertion. CXR on admission showed a new, large right pleural effusion. I reviewed the CXR myself. He has not had any imaging of the chest recently. A CT scan done in 2013 showed not pleural effusion. History is taken from the patient, requesting provider and records review. Review of systems: Constitutional: No fevers, chills. Yes for nausea and loss of appetite. Cardiovascular: No chest pain, or palpitations. Dyspnea with minimal exertion noted. Respiratory: No hemoptysis, or cough with purulent production. No wheezes GI: some epigastric discomfort. Black stools as in HPI. : no hematuria Neurological: no headache or double vision. All systems were reviewed and they are all negative unless otherwise specified. Home Medications: Home Medications Medication Instructions Recorded Confirmed Type Rosuvastatin (NF) [Crestor (NF)] 5 mg PO BEDTIME 09/10/18 06/10/19 History dilTIAZem HCl [Cartia Xt] 180 mg PO QAM 10/31/18 06/10/19 History Metoprolol Succinate XL TAB* 50 mg PO DAILY 06/08/19 06/10/19 History [Toprol XL TAB*] Pantoprazole TAB * [Protonix TAB*] 40 mg PO BID #60 tab 06/14/19 Rx ALL: NKDA Past medical history: ESRD d/t HTN Peritoneal Dialysis Atrial Fibrillation previously [facility] UGI bleed Past surgical history: Tooth extractions PD cath placement EGD Family history: Mother: passed at 61 y/o due to Lymphoma Father: passed at 76 y/o due to metastatic melanoma Daughter: healthy Social history: Retired but very active . Lives with his daughter Denies alcohol, drugs and smoking cigarettes Labs: hb: 5.4, K 3.7, troponin elevated, being trended, Physical exam: BP 115/54, T 98.4 F, 02 sat 95% on 2L , HR 83 Constitutional: moderate respiratory distress, sitting in ICU bed. Remains very pleasant. Looks tired and acutely ill. Head: Atraumatic and normocephalic. Nose, lips and ears appear normal. Eyes: moist conjunctivae, no ptosis, pupils are equal. Neck: Supple, full range of motion, non-tender, no masses, trachea midline, no thyromegaly. Respiratory: Chest is clear to auscultation anteriorly. Decreased breath sounds on the right posterior lung field. Cardiovascular: Heart auscultation shows normal S1-S2, IIR, NO peripheral edema. Gastrointestinal: Abdomen is soft, ND, some tenderness in the epigastrum. No hepatosplenomegaly or masses appreciated. No hernias. Musculoskeletal: No digital cyanosis or clubbing. No joint swelling or tenderness. No CVA tenderness. Skin: No skin rashes, ulcers or lesions. Normal temperature, decreased turgor. Neurologic: Speech fluent, no tremor, grossly nonfocal. Psychiatric: Appropriate affect, alert and oriented 3, intact judgment is insight. Assessment and plan: Mr. Vegas is a very nice 83-year-old gentleman who was admitted for shortness of breath, new right-sided pleural effusion, recurrent acute anemia, non-ST elevation FL. Dyspnea is most probably due to large right-sided pleural effusion and acute and severe anemia with a hemoglobin of 5 on admission. I discussed with Dr. Del Real, who is the ICU attending that his dyspnea is most probably due to this large sided pleural effusion. The best approach would be a thoracocentesis with removal of the fluid for therapeutic purpose. Obviously this procedure will have a diagnostic purpose as well. Volume status. Other than this right-sided pleural effusion patient is not volume overloaded. Because of need for blood transfusion we will start 24- hour peritoneal dialysis. I would use a 2.5% dextrose solution to achieve volume removal of about 2 L per day. Hypotension: The patient is hemodynamically unstable because of his cardiac dysfunction. He had a transthoracic echocardiogram today which showed systolic function at the lower limit of normal and new Hypokinesis of the mid apical anteroseptal myocardium End Stage renal disease on peritoneal dialysis. As above 24 hour peritoneal dialysis. If the patient needs more volume removal I recommend transfer to a facility where they can do hemodialysis over the weekend. Again peritoneal dialysis removes fluid or a very slow rate. He actually may need continuous renal replacement therapy if he continues to hemodynamically deteriorate. Acute anemia due to GI bleed most probably. Primary team to involve GI. Non-ST elevation FL probably due to severe anemia. Primary team to involve cardiology. He is in critical condition because of his acute GI bleed, and significant non- ST elevation FL.
--- NOTE | 2019-06-26 19:00 | CONSULT ---
Consult Consult: NEPHROLOGY CONSULT Assessment and plan: Mr. Vegas is a very nice 83-year-old gentleman who was admitted for shortness of breath, new right-sided pleural effusion, recurrent acute anemia, non-ST elevation IL. Dyspnea is most probably due to large right-sided pleural effusion and acute and severe anemia with a hemoglobin of 5 on admission. I discussed with Dr. Del Real, who is the ICU attending that his dyspnea is most probably due to this large sided pleural effusion. The best approach would be a thoracocentesis with removal of the fluid for therapeutic purpose. Obviously this procedure will have a diagnostic purpose as well. Volume status. Other than this right-sided pleural effusion patient is not volume overloaded. Because of need for blood transfusion we will start 24- hour peritoneal dialysis. I would use a 2.5% dextrose solution to achieve volume removal of about 2 L per day. Hypotension: The patient is hemodynamically unstable because of his cardiac dysfunction. He had a transthoracic echocardiogram today which showed systolic function at the lower limit of normal and new Hypokinesis of the mid apical anteroseptal myocardium End Stage renal disease on peritoneal dialysis. As above 24 hour peritoneal dialysis. If the patient needs more volume removal I recommend transfer to a facility where they can do hemodialysis over the weekend. Again peritoneal dialysis removes fluid or a very slow rate. He actually may need continuous renal replacement therapy if he continues to hemodynamically deteriorate. Acute anemia due to GI bleed most probably. Primary team to involve GI. Non-ST elevation IL probably due to severe anemia. Primary team to involve cardiology. He is in critical condition because of his acute GI bleed, and significant non- ST elevation IL.
--- NOTE | 2019-06-26 19:04 | PN ---
Progress Note - Progress Note Date of Service: 06/26/19 - peritoneal dialysis Note: Please see previously dictated consult note for full details. Patient started on PERITONEAL DIALYSIS : 24 hour dialysis with about 2 hours dwell time. 2 L fill volume. All 2.5% for volume removal. I saw the patient during peritoneal dialysis today. He was a lot more comfortable and less dyspneic after thoracocentesis. He was sleeping comfortably, easily arousable. I allowed patient to fall fall back to sleep as he had a very difficult night.
[2019-06-26] MEDS: cefTRIAXone(*) 1 GM in NS 0.9% 50 ML* 50 ML IVPB SCH (19:35)
[2019-06-26] MEDS: Azithromycin 500 mg/250 ml NS 500 MG/250 ML BAG IVPB SCH (21:35)
[2019-06-26 22:04] LABS: Hematocrit 24 % (42-52); Hemoglobin 8.1 g/dL (14.0-18.0)
[2019-06-26 22:13] LABS: Troponin I 9.96 ng/mL (<0.03)
--- NOTE | 2019-06-26 22:45 | CONS ---
CC: Kizzy Villatoro MD; Gilberto Trinh MD * CONSULTATION REPORT: DATE OF CONSULT: 06/26/19 REQUESTING PROVIDER: Dr. Mana Rivera. REASON FOR CONSULT: Anemia, melena. HISTORY OF PRESENT ILLNESS: This is a very pleasant 83-year-old male with a past medical history of end-stage renal disease, on peritoneal dialysis; atrial flutter; distant history of pulmonary embolism, who presented to the emergency room with generalized weakness and shortness of breath along with dizziness. [place] [facility], getting upper endoscopy performed by myself on 06/11/19 with multiple endoclips placed over a gastric erosion and 2 small duodenal ulcers. No further bleeding was noted and his hemoglobin was stable. His anticoagulation was held. He states that he did notice some black in his stool. He is taking iron, but he did admit that stool is quite sticky. He denies any gross hematochezia. He admits to significant dyspnea. He denies any chest pain, denies any nausea or vomiting. Denies any skin rash or lesions. Denies any weight gain or loss. The remainder of the 14-point review of systems is grossly negative except for as described in the HPI. PAST MEDICAL HISTORY: 1. End-stage renal disease, on peritoneal dialysis. 2. Atrial flutter. 3. Distant pulmonary embolism, provoked. 4. Hypertension. 5. History of multifactorial anemia. 6. Dyslipidemia. MEDICATIONS: Home medications include: 1. Cartia. 2. Crestor. 3. Protonix. 4. Toprol. Of note, Coumadin was discontinued. ALLERGIES: No known drug allergies. FAMILY HISTORY: Maternal lymphoma at age 61, paternal melanoma. SOCIAL HISTORY: Denies any tobacco, alcohol, or drug use. REVIEW OF SYSTEMS: Remainder of the 14-point review of systems is grossly negative except for as described in the HPI. PHYSICAL EXAM: Vital Signs: Blood pressure is 104/54, pulse is 74, respiratory rate is 22. He is 94% on 10 L per minute. General: Mild respiratory distress, but alert and oriented x3. Appears chronically ill. HEENT: Atraumatic and normocephalic. Pupils are equal, round, and reactive to light. Extraocular movement are intact. Conjunctivae slightly pale. Sclerae anicteric. Neck: Supple. Trachea midline. Cardiovascular: Regular rate and rhythm. S1 and S2. Lungs: Slightly diminished at the base, especially on the left. The right base was also dull. Abdomen is soft, nontender, and nondistended. Bowel sounds positive. Extremities: No clubbing or cyanosis. No edema. Psych: Appropriate mood and affect. Rectal: The rectal exam done with a library sales consultant and found to have black melanotic stool. DIAGNOSTIC STUDIES/LAB DATA: Hemoglobin on presentation 5.4, he received 2 units and responded nicely to 7.4. Current hemoglobin is 7. Troponin is 6.49. BUN is 78, creatinine is 11. He was found to be occult positive in the ER. IMPRESSION: This is an 83-year-old male with a history of end-stage renal disease, on peritoneal dialysis, history of upper gastrointestinal bleeding thought to be secondary to duodenal ulcerations and gastric nodularity with oozing, status post endoscopic intervention on previous hospitalization, now presenting with melena and fluid overload. 1. Acute blood loss anemia. Does have evidence of melena. Agree with PPI drip at this time, keep H and H every 6 hours, keep 2 units of PRBCs on hold at all times. He certainly would benefit from endoscopic evaluation. I would like to see what his hemoglobin is after peritoneal dialysis. He is overloaded at this time and a high-risk candidate for endoscopy. He had drainage of a large pleural effusion today on the right that did appear bloody in nature. It appears that his blood loss may be multifactorial and not all related to the GI system. We will closely monitor and consider endoscopic evaluation when pulmonary status is improved. 2. History of duodenal and gastric erosions. Continue with PPI. Avoid NSAIDs. Continue to avoid anticoagulation. 3. End-stage renal disease, on peritoneal dialysis per primary team. [id number]/[facility] #: [id number] [facility]odney
[2019-06-27 05:14] LABS: ABS Lymphocytes 0.6 10^3/ul (1.0-4.8); ABS Monocytes 0.8 10^3/ul (0-0.8); Eosinophil % 0.2 %; Hematocrit 24 % (42-52); Hemoglobin 8.3 g/dL (14.0-18.0); Lymphocyte % 3.6 %; Mean Corpuscular HGB Conc 34 g/dL (31-36); Mean Corpuscular Hemoglobin 30 pg (27-31); Mean Corpuscular Volume 89 fL (80-94); Mean Platelet Volume 8.4 fL (7.4-10.4); Nucleated Red Blood Cells % 0.1; Platelet Count 274 10^3/uL (150-450); Red Blood Count 2.72 10^6 /uL (4.18-5.48); Red Cell Distribution Width 16 % (10-15); White Blood Count 16.5 10^3/uL (3.5-10.8)
[2019-06-27 05:29] LABS: Anion Gap 15 mmol/L (2-11); BUN/Creatinine Ratio 7.1 (8-20); Blood Urea Nitrogen 78 mg/dL (6-24); CO2 Carbon Dioxide 23 mmol/L (22-32); Calcium 8.3 mg/dL (8.6-10.3); Chloride 98 mmol/L (101-111); EGFR African American 5.4 (>60); EGFR Non-African American 4.5 (>60); Glucose 158 mg/dL (70-100); Potassium 3.7 mmol/L (3.5-5.0); Sodium 136 mmol/L (135-145)
[2019-06-27] MEDS ORDERED: Metoprolol Succinate XL TAB* 25 MG PO SCH (09:00)
[2019-06-27] MEDS: Pantoprazole* 80 mg IN NS 80 MG/250 ML BAG IV SCH ×2 (09:01→19:15)
[2019-06-27 09:51] LABS: Troponin I 10.05 ng/mL (<0.03)
--- NOTE | 2019-06-27 11:21 | PN ---
Date of Service: 06/27/19 - Feel better on vapotherma at 100% fio2 currently was on NIPPV earlier Vital Signs: Temp Pulse Resp BP SpO2 FiO2 97.9 F 73 23 117/59 95 100 06/27/19 08:00 06/27/19 10:00 06/27/19 10:00 06/27/19 10:00 06/27/19 10:00 06/26 08:47 Physical Exam: Gen: awake and resting; he is in no distress HEENT: nc/at perrla Lungs: rhonchi and bilateral AE Cardiac: s1s2 rrr no murmurs and no rubs Abdomen: soft nt/nd bs Extremities: no edema. Neuro: AAO x 3 Fluid Balance (Past 24 Hours): I= O= Net Intake & Output 06/25/19 06/26/19 06/27/19 06/28/19 06:59 06:59 06:59 06:59 Intake Total 4 516 Output Total 3600 Balance 4 -3084 Weight 186 lb 12.8 oz 181 lb Intake: IV Fluids 4 102 NS (0.9%) 102 Medicated IV 127 GEN - Pantoprazole/ 75 Protonix abx 52 Oral 0 0 Packed Cells 287 Output: Urine 0 Mackey 0 Irrigation 3600 Labs: Laboratory Results - last 24 hr 06/26/19 06/26/19 06/26/19 00:28 11:48 12:25 WBC RBC Hgb 7.0 L Hct 21 L MCV MCH MCHC RDW Plt Count MPV Neut % (Auto) Lymph % (Auto) [place] % (Auto) Eos % (Auto) Baso % (Auto) Absolute Neuts (auto) Absolute Lymphs (auto) Absolute Monos (auto) Absolute Eos (auto) Absolute Basos (auto) Absolute Nucleated RBC Nucleated RBC % ABG pH ABG pH (Temp Correct) ABG pCO2 ABG pCO2 (Temp Corrct ABG pO2 ABG pO2 (Temp Correct ABG HCO3 ABG O2 Saturation ABG Base Excess Respiration Rate O2 Delivery Device Ventilator Type Vent Mode FiO2 Inspiratory Time PEEP Pressure Support Pressure Control IPAP BiPAP Sodium Potassium Chloride Carbon Dioxide Anion Gap BUN Creatinine Est GFR ( Amer) Est GFR (Non-Af Amer) BUN/Creatinine Ratio Glucose Lactic Acid Calcium Troponin I Fluid Source Pleural fluid Fluid Volume 7 Fluid Color Red Fluid Appearance Bloody Fluid WBC 5659 Fluid RBC 370524 Fluid Tot Cell Count 100 Fluid Neutrophils 11 Fluid Lymphocytes 52 Fluid Monocytes 33 Fluid Eosinophils 3 Fluid Basophils 1 Blood Type O Positive Antibody Screen Negative Crossmatch See Detail 06/26/19 06/26/19 06/26/19 12:25 15:10 15:10 WBC RBC Hgb 6.9 L Hct 20 L MCV MCH MCHC RDW Plt Count MPV Neut % (Auto) Lymph % (Auto) [place] % (Auto) Eos % (Auto) Baso % (Auto) Absolute Neuts (auto) Absolute Lymphs (auto) Absolute Monos (auto) Absolute Eos (auto) Absolute Basos (auto) Absolute Nucleated RBC Nucleated RBC % ABG pH ABG pH (Temp Correct) ABG pCO2 ABG pCO2 (Temp Corrct ABG pO2 ABG pO2 (Temp Correct ABG HCO3 ABG O2 Saturation ABG Base Excess Respiration Rate O2 Delivery Device Ventilator Type Vent Mode FiO2 Inspiratory Time PEEP Pressure Support Pressure Control IPAP BiPAP Sodium Potassium Chloride Carbon Dioxide Anion Gap BUN Creatinine Est GFR ( Amer) Est GFR (Non-Af Amer) BUN/Creatinine Ratio Glucose Lactic Acid 2.0 Calcium Troponin I 6.49 H* Fluid Source Fluid Volume Fluid Color Fluid Appearance Fluid WBC Fluid RBC Fluid Tot Cell Count Fluid Neutrophils Fluid Lymphocytes Fluid Monocytes Fluid Eosinophils Fluid Basophils Blood Type Antibody Screen Crossmatch 06/26/19 06/26/19 06/26/19 15:30 21:34 21:34 WBC RBC Hgb 8.1 L Hct 24 L MCV MCH MCHC RDW Plt Count MPV Neut % (Auto) Lymph % (Auto) [place] % (Auto) Eos % (Auto) Baso % (Auto) Absolute Neuts (auto) Absolute Lymphs (auto) Absolute Monos (auto) Absolute Eos (auto) Absolute Basos (auto) Absolute Nucleated RBC Nucleated RBC % ABG pH ABG pH (Temp Correct) ABG pCO2 ABG pCO2 (Temp Corrct ABG pO2 ABG pO2 (Temp Correct ABG HCO3 ABG O2 Saturation ABG Base Excess Respiration Rate O2 Delivery Device Ventilator Type Vent Mode FiO2 Inspiratory Time PEEP Pressure Support Pressure Control IPAP BiPAP Sodium Potassium Chloride Carbon Dioxide Anion Gap BUN Creatinine Est GFR ( Amer) Est GFR (Non-Af Amer) BUN/Creatinine Ratio Glucose Lactic Acid Calcium Troponin I 8.28 H* 9.96 H* Fluid Source Fluid Volume Fluid Color Fluid Appearance Fluid WBC Fluid RBC Fluid Tot Cell Count Fluid Neutrophils Fluid Lymphocytes Fluid Monocytes Fluid Eosinophils Fluid Basophils Blood Type Antibody Screen Crossmatch 06/26/19 06/27/19 06/27/19 23:55 05:01 05:01 WBC 16.5 H RBC 2.72 L Hgb 8.3 L Hct 24 L MCV 89 MCH 30 MCHC 34 RDW 16 H Plt Count 274 MPV 8.4 Neut % (Auto) 90.9 Lymph % (Auto) 3.6 [place] % (Auto) 5.0 Eos % (Auto) 0.2 Baso % (Auto) 0.3 Absolute Neuts (auto) 15.0 H Absolute Lymphs (auto) 0.6 L Absolute Monos (auto) 0.8 Absolute Eos (auto) 0.0 Absolute Basos (auto) 0.0 Absolute Nucleated RBC 0.0 Nucleated RBC % 0.1 ABG pH 7.41 ABG pH (Temp Correct) Not Reportable ABG pCO2 34 L ABG pCO2 (Temp Corrct Not Reportable ABG pO2 63 L ABG pO2 (Temp Correct Not Reportable ABG HCO3 22.9 ABG O2 Saturation 92.7 L ABG Base Excess -2.4 L Respiration Rate Not Reportable O2 Delivery Device vapotherm Ventilator Type Not Reportable Vent Mode Not Reportable FiO2 100 Inspiratory Time Not Reportable PEEP Not Reportable Pressure Support Not Reportable Pressure Control Not Reportable IPAP Not Reportable BiPAP Not Reportable Sodium 136 Potassium 3.7 Chloride 98 L Carbon Dioxide 23 Anion Gap 15 H BUN 78 H Creatinine 11.06 H Est GFR ( Amer) 5.4 Est GFR (Non-Af Amer) 4.5 BUN/Creatinine Ratio 7.1 L Glucose 158 H Lactic Acid Calcium 8.3 L Troponin I 11.30 H* Fluid Source Fluid Volume Fluid Color Fluid Appearance Fluid WBC Fluid RBC Fluid Tot Cell Count Fluid Neutrophils Fluid Lymphocytes Fluid Monocytes Fluid Eosinophils Fluid Basophils Blood Type Antibody Screen Crossmatch 06/27/19 09:17 WBC RBC Hgb Hct MCV MCH MCHC RDW Plt Count MPV Neut % (Auto) Lymph % (Auto) [place] % (Auto) Eos % (Auto) Baso % (Auto) Absolute Neuts (auto) Absolute Lymphs (auto) Absolute Monos (auto) Absolute Eos (auto) Absolute Basos (auto) Absolute Nucleated RBC Nucleated RBC % ABG pH ABG pH (Temp Correct) ABG pCO2 ABG pCO2 (Temp Corrct ABG pO2 ABG pO2 (Temp Correct ABG HCO3 ABG O2 Saturation ABG Base Excess Respiration Rate O2 Delivery Device Ventilator Type Vent Mode FiO2 Inspiratory Time PEEP Pressure Support Pressure Control IPAP BiPAP Sodium Potassium Chloride Carbon Dioxide Anion Gap BUN Creatinine Est GFR ( Amer) Est GFR (Non-Af Amer) BUN/Creatinine Ratio Glucose Lactic Acid Calcium Troponin I 10.05 H* Fluid Source Fluid Volume Fluid Color Fluid Appearance Fluid WBC Fluid RBC Fluid Tot Cell Count Fluid Neutrophils Fluid Lymphocytes Fluid Monocytes Fluid Eosinophils Fluid Basophils Blood Type Antibody Screen Crossmatch Impression: 83 y.o male admitted to the ICU for dyspneia also had melena: Assessment: 1. Acute hypoxic respiratory failure 2nd fluid overload, pleural effuison 2. probable pna 3 bloody pleural effusion possible malignancy 4. nstemi with new WMA; type 2 ID 5. ESRD on PD 6. Atrial flutter was on anticoagulation 7. Remote hx of PE thought to be provoked 8. PUD s/p endoclip 06/11/19 9. HTN hx 10. Aortic Stenosis Plan: -Fluid to be taken off with peritoneal Dialysis; Spoke to Dr. Sousa; cannot take off more than 2 liters; more would require hemodyalysis and he will need to be transferred. -Continue abx -We will see if GI will plan and endoscopy if not, then the patient can be started on a clear liquid diet - Anticoagulation cannot be started at this vel -troponins are coming down we will stop checking.. Appreciate cardiolgy consult -We will follow up the blood cultures -CT chest is pending. -The patient is on metoprolol for rate control -SCDs for dvt ppx. -on vapotherm we will see if we ccan wean off the setting. Critical Care Time: The patient requires intensive medical decision making to prevent adverse outcomes. The ccm time is 30 minutes.
[2019-06-27] MEDS ORDERED: Metoprolol Tartrate IV* 1 MG/ML 5 ML VIAL ONE (16:10)
[2019-06-27] MEDS: Metoprolol Tartrate IV* 1 MG/ML 5 ML VIAL IV PRN (16:11)
[2019-06-27] MEDS ORDERED: Diltiazem IV push/loading dose 5 MG/ML 5 ML vial (25 mg) IV SLOW PU ONE (16:27)
[2019-06-27] MEDS ORDERED: Diltiazem IV push/loading dose 5 MG/ML 5 ML vial (25 mg) ONE (16:31)
[2019-06-27 16:50] LABS: Lactate Dehydrogenase, BF 194 U/L
[2019-06-27] MEDS ORDERED: Diltiazem IV BAG* D5W Premix 125 MG/125 ML BAG IV SCH (17:00)
[2019-06-27] MEDS: cefTRIAXone(*) 1 GM in NS 0.9% 50 ML* 50 ML IVPB SCH (19:35)
[2019-06-27] MEDS: Azithromycin 500 mg/250 ml NS 500 MG/250 ML BAG IVPB SCH (20:40)
[2019-06-28 04:47] LABS: ABS Eosinophils 0.2 10^3/ul (0-0.6); ABS Lymphocytes 0.8 10^3/ul (1.0-4.8); ABS Neutrophils 11.2 10^3/ul (1.5-7.7); Eosinophil % 1.8 %; Hematocrit 24 % (42-52); Hemoglobin 8.1 g/dL (14.0-18.0); Lymphocyte % 5.7 %; Mean Corpuscular HGB Conc 34 g/dL (31-36); Mean Corpuscular Hemoglobin 31 pg (27-31); Mean Corpuscular Volume 93 fL (80-94); Mean Platelet Volume 8.4 fL (7.4-10.4); Platelet Count 265 10^3/uL (150-450); Red Blood Count 2.59 10^6 /uL (4.18-5.48); Red Cell Distribution Width 17 % (10-15); White Blood Count 13.3 10^3/uL (3.5-10.8)
[2019-06-28 05:03] LABS: Albumin 2.6 g/dL (3.2-5.2); Calcium 7.9 mg/dL (8.6-10.3); Potassium 3.3 mmol/L (3.5-5.0); Total Bilirubin 0.4 mg/dL (0.2-1.0)
[2019-06-28 05:09] LABS: Albumin/Globulin Ratio 0.8 (1-3); BUN/Creatinine Ratio 5.9 (8-20); EGFR African American 5.6 (>60); EGFR Non-African American 4.7 (>60); Globulin 3.4 g/dL (2-4)
[2019-06-28] MEDS: Pantoprazole* 80 mg IN NS 80 MG/250 ML BAG IV SCH ×3 (05:20→23:59)
[2019-06-28 05:23] LABS: Activated Partial Thrombo Time 42.9 seconds (26.0-38.0); INR 1.09 (0.82-1.09)
[2019-06-28] MEDS ORDERED: Iodixanol* (CONTRAST) 320 MG/ML 100 ML SDV IV ONE (05:49)
[2019-06-28] MEDS ORDERED: KCL 20 MEQ/100 ML IVPREMIX* 20 MEQ/100 ML BAG IV SCH (06:00)
--- NOTE | 2019-06-28 06:10 | PN ---
Hospitalist Progress Note Date of Service: 06/28/19 Dr. Bond and I assessed patient at bedside after nursing reports patient has neurological changes at approx 0415. Last known well was 0000. Code young called and CT brain ordered. Patient has been in afib with RVR today on diltiazem drip. Converted into NSR en route to CT. 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 Olivarez -No findings on CTA and recommended CTA head/neck -Dr. Olivarez reviewed CTA and did not find LVO. 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 Concern is patient needs AC which is currently contraindicated in GI bleed. Primary team to d/w neurology and GI -MRI ordered -Dr. Olivarez mentioned that perhaps left atrial appendage closure could be considered in the future
[2019-06-28] MEDS ORDERED: Diltiazem CD CAP* 180 MG PO SCH (07:30)
[2019-06-28] MEDS: KCL 20 MEQ/100 ML IVPREMIX* 20 MEQ/100 ML BAG IV SCH ×2 (07:38→10:12)
[2019-06-28] MEDS ORDERED: Metoprolol Tartrate TAB* 50 mg PO SCH (09:00)
[2019-06-28] MEDS: Phenylephrine 10 MG/ML VIAL* 50 MG in NS 0.9% 250 ML* 245 ML IV SCH ×2 (09:04→23:59)
--- NOTE | 2019-06-28 10:13 | PN ---
Date of Service: 06/28/19 - Code young overnight; still on vapotherm Vital Signs: Temp Pulse Resp BP SpO2 FiO2 98.5 F 75 25 138/63 95 100 06/28/19 08:00 06/28/19 09:00 06/28/19 09:00 06/28/19 09:00 06/28/19 09:00 06/27 08:00 Physical Exam: Gen: awake is ignoring the left side slightly HEENT: nc/at perrla Lungs: Rhonchi and bilateral AE Cardiac: s1 s2 rrr now in sinus rhythm Abdomen: soft nt/nd bs+ Extremities: no edema. Neuro: no facial droop, moves all extremities; looks to the Right; has no sensation on the right arm. Fluid Balance (Past 24 Hours): I= O= Net Intake & Output 06/26/19 06/27/19 06/28/19 06/29/19 06:59 06:59 06:59 06:59 Intake Total 4 516 2076 Output Total 3600 0 Balance 4 -3084 2076 Weight 186 lb 12.8 oz 181 lb 176 lb 1.6 oz Intake: IV Fluids 4 102 262 NS (0.9%) 102 262 IVPB 335 ABX - AZITHROMYCIN 274 ceftriaxone 61 Medicated IV 127 879 Cardizem 100 GEN - Pantoprazole/ 75 509 Protonix abx 52 270 Oral 0 0 600 Packed Cells 287 Output: Urine 0 0 Mackey 0 Irrigation 3600 Labs: Laboratory Results - last 24 hr 06/26/19 06/28/19 06/28/19 11:48 04:26 04:26 WBC 13.3 H RBC 2.59 L Hgb 8.1 L Hct 24 L MCV 93 MCH 31 MCHC 34 RDW 17 H Plt Count 265 MPV 8.4 Neut % (Auto) 84.4 Lymph % (Auto) 5.7 [place] % (Auto) 7.8 Eos % (Auto) 1.8 Baso % (Auto) 0.3 Absolute Neuts (auto) 11.2 H Absolute Lymphs (auto) 0.8 L Absolute Monos (auto) 1.0 H Absolute Eos (auto) 0.2 Absolute Basos (auto) 0.0 Absolute Nucleated RBC 0.0 Nucleated RBC % 0.0 INR (Anticoag Therapy) APTT Sodium 134 L Potassium 3.3 L Chloride 98 L Carbon Dioxide 21 L Anion Gap 15 H BUN 63 H Creatinine 10.65 H Est GFR ( Amer) 5.6 Est GFR (Non-Af Amer) 4.7 BUN/Creatinine Ratio 5.9 L Glucose 145 H Calcium 7.9 L Total Bilirubin 0.40 AST 51 H ALT 34 Alkaline Phosphatase 64 Total Protein 6.0 L Albumin 2.6 L Globulin 3.4 Albumin/Globulin Ratio 0.8 L Fluid Source Pleural Fluid LDH 194 06/28/19 05:08 WBC RBC Hgb Hct MCV MCH MCHC RDW Plt Count MPV Neut % (Auto) Lymph % (Auto) [place] % (Auto) Eos % (Auto) Baso % (Auto) Absolute Neuts (auto) Absolute Lymphs (auto) Absolute Monos (auto) Absolute Eos (auto) Absolute Basos (auto) Absolute Nucleated RBC Nucleated RBC % INR (Anticoag Therapy) 1.09 APTT 42.9 H Sodium Potassium Chloride Carbon Dioxide Anion Gap BUN Creatinine Est GFR ( Amer) Est GFR (Non-Af Amer) BUN/Creatinine Ratio Glucose Calcium Total Bilirubin AST ALT Alkaline Phosphatase Total Protein Albumin Globulin Albumin/Globulin Ratio Fluid Source Fluid LDH Impression: 1. Acute hypoxic respiratory failure 2nd fluid overload, pleural effuison 2. probable pna 3 bloody pleural effusion possible malignancy 4. nstemi with new WMA; type 2 [place] 5. ESRD on PD 6. Atrial flutter was on anticoagulation 7. Remote hx of PE thought to be provoked 8. PUD s/p endoclip 06/11/19 9. HTN hx 10. 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 -continue ppi gtt -on abx CT chest does show airspace dz -Is the fluid escaping from the peritoneal dialysis up to the pleural space? -I will increase the metoprolol dose to 50 bid; converted back to sinus rhythym ; went into afib with rvr -Baby aspirin is started; we will hold off the anticoagulation. Critical Care Time: The patient requires intensive medical decison making to prevent adverse outcomes. The ccm time is 32 minutes.
[2019-06-28] MEDS: Aspirin EC TAB* 81 MG TAB.EC PO SCH (13:45)
[2019-06-28] MEDS: Mupirocin 2% OINT* TUBE TOPICAL SCH (13:45)
--- NOTE | 2019-06-28 14:59 | CONSULT ---
Consult Consult: Neurology Inpatient Consult Note Date of service: 06/28/2019 Reason for consult: Neurology was consulted by Dr. Alexander Willoughby to evaluate the patient for stroke. The history was obtained by the patient and the bedside nurse. I also reviewed the electronic medical records and telephone consultation done with -Telestroke, Dr. Olivarez. Chief complaint: Left sided neglect and weakness History of Present Illness: Mr. Steve Vegas is an 83-year-old man who was recently discharged from [facility] on 06/14/2019 for acute GI bleed. The patient underwent endoclip placement to gastic and duodenal ulcers. The patient came back to the hospital on 06/26/2019 with symptoms of lightheadedness, shortness of breath, and fatigue. He was found to have a hemoglobin of 5 and melanic stool. He was admitted to the ICU for close monitoring. He received 2 U of PRBCs. He has been off anticoagulation therapy since the initial GI bleed earlier this month. He was in normal sinus rhythm until recently. Yesterday to early this morning, the patient had an episode of atrial fibrillation with RVR and converted to sinus rhythm after he was started on Cardizem drip. At 04:15 on , the patient was found by the nurse to have left arm and leg weakness, left sided neglect, left visual field deficit. The patient's last known well time was at 0000 on 06/28/2019. UR- Telestroke phone consultation was performed. Alteplase was not recommended by Dr. Olivarez due to recent GI bleed. The CTA did not show any LVO, therefore, there was no indication to transfer to [facility]. Today, the patient continues to have symptoms of visual neglect on the left and left sided weakness. He denied any headaches. He is not aware of his deficits but did inform me that he was told that he had a stroke. Labs, Imaging and Other Diagnostics: WBC: 13 Hemoglobin: 5.4 improved to 8.1 with PRBC Sodium: 134 BUN: 63 Creatinine: 10.65 - CT head without contrast 06/28/2019: No acute intracranial abnormality. - CTA head and neck 06/28/2019: reported right PHOTO MASK PATTERN GENERATOR occlusion. I reviewed the image and did not appreicate any proximal PHOTO MASK PATTERN GENERATOR occlusion. 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 No evidence of ICA occlusion. - CT Chest: large right and moderate left pleural effusion with adjacent compressive atelectasis. Patchy airspace and ground-glass in the perihilar left upper lobe. Ascites. - TTE completed on 06/26/2019: EF 50-55%. hypokinesis of the mid- apicalanteroseptal myocardium. Left atrium is moderately dilated. Past Medical History: Hypertension, ESRD on PD. Moderate aortic stenosis. Atrial flutter on coumadin. Pulmonary embolism. Anemia of chronic disease. Dyslipidemia. Family History: No family history of stroke or seizures. Father of metastatic melanoma. Social History: He is retired from [employer]. He lives with his daughter. Home Medications: Rosuvastatin (NF) [Crestor (NF)] 5 mg PO BEDTIME 09/10/18 [History Confirmed 07/26] dilTIAZem HCl [Cartia Xt] 180 mg PO QAM 10/31/18 [History Confirmed 06/10/19] Metoprolol Succinate XL TAB* [Toprol XL TAB*] 50 mg PO DAILY 06/08/19 [History Confirmed 06/10/19] Pantoprazole TAB * [Protonix TAB*] 40 mg PO BID #60 tab 06/14/19 [Rx] Allergies No Known Allergies Allergy (Verified 06/10/19 16:39) Review of Systems: A 14-point ROS was obtained and otherwise negative except for what was mentioned in the HPI. Physical Exam: Vitals: Vital Signs - 12 hr Temp Pulse Resp BP Pulse Ox 06/28/19 13:00 77 23 173/78 93 06/28/19 12:45 72 18 163/70 97 06/28/19 12:30 73 17 166/77 96 06/28/19 12:15 73 16 160/78 94 06/28/19 12:00 98.5 F 74 24 162/73 92 06/28/19 11:45 72 18 156/77 95 06/28/19 11:30 70 18 159/70 95 06/28/19 11:15 73 17 159/76 93 06/28/19 11:00 71 24 06/28/19 10:45 72 16 158/75 94 06/28/19 10:30 70 21 161/72 93 06/28/19 10:15 69 22 154/77 92 06/28/19 10:00 67 16 150/72 94 06/28/19 09:45 69 21 157/75 93 06/28/19 09:30 70 17 163/73 96 06/28/19 09:00 75 25 138/63 95 06/28/19 08:00 98.5 F 73 22 139/58 94 06/28/19 07:56 20 06/28/19 07:00 66 18 127/60 100 06/28/19 06:02 77 24 141/62 99 06/28/19 06:00 80 26 99 06/28/19 05:10 105 22 123/66 99 06/28/19 05:00 19 06/28/19 04:00 98.8 F 114 22 104/64 98 06/28/19 03:00 107 20 91/70 98 NIHSS: 10 ( 1- partial gaze, 2- complete hemianopia, 1-facial palsy, 1-left arm drift, 1-left leg drift, 1- limb ataxia, 1- mild-moderate loss, 1- mild dysarthria, 1- extinction to bilateral simultaneous stimuli. General: Critically ill appearing man in no distress. Head: normocephalic, without obvious abnormality Eyes: conjunctivae/corneas clear Neck: supple, symmetrical. No carotid bruit. No lymphadenopathy. Lungs: clear to auscultation bilaterally, non-labored CV: regular rhythm, S1, S2 normal, radial pulses palpable Extremities: normal range of motion with no cyanosis. Skin: no skin lesions or lacerations Psych: affect-broad and normal mood. Easy to establish rapport. Neurological examination: Mental status: awake; alert and oriented to person, place, time, & general circumstances; Mild dysarthria. No aphasia. Cranial nerves: I: not tested II, III, IV, : Left homonymous hemianopsia. Pupils midrange and reactive to light, normal consensual response; extraocular muscles are intact; no ptosis; no conjugate or asymmetrical nystagmus. He has trouble looking towards the left and cannot overcome the midline. V 1/2/3: sensation is intact on forehead, cheeks, and jaw region VII: mild facial droop and widening of the palpebral fissure on the left. VIII: able to hear throughout the history process IX & X: symmetric palatal elevation XI: normal strength against resistance XII: tongue is symmetrical & midline with no atrophy or fasciculations Motor (R/L): no abnormal movements. Positive pronator drift on the left. Flexion of the left elbow, nearly hallie. No fasciculations. Neck extension 5. Shoulder ROM is full. Shoulder abduction 5/5. Elbow flexion 5/5 , extension 5/4. Wrist flexion 5/5, extension 5/5. Finger abduction 5/5. Hip flexion 5/4, abduction 5/5. Knee flexion 5/5, extension 5/5. Ankle dorsiflexion 5/5. Reflexes R L Brachioradialis 1 2+ Biceps 1 2+ Triceps 1 2+ Patella 1 2+ Ankle trace trace Plantar flexor Extensor Sensation: reduced sensation to light touch on the left face, arm and leg. Left -right disorientation. Tactile extinction on the left. Coordination: motor dysmetria on the left to finger to nose. Gait & Station: deferred Assessment: 1. 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 - The patient's neurological examination is notable for left homonymous hemianopsia, left hemiparesis, left partial neglect. - Mechanism: cardio emboli in the setting of atrial fibrillation, off anticoagulation therapy due to acute bleeding/severe anemia. - NIHSS: 10. He was not a candidate for alteplase therapy due to recent GI bleed and hemorrhagic pleural effusion. - He has no evidence of large vessel occlusion on CTA. I cannot appreciate the proximal right posterior cerebral artery occlusion as reported on the vRAD report. He was not a candidate for mechanical thrombectomy as recommended by Dr. Olivarez. - There is low suspicion for seizures. 2. Anemia due to recurrence of GI bleed. 3. Atrial flutter/fibrillation. Off anticoagulation therapy due to GI bleed. 4. Bilateral pleural effusions concerning for metastatic disease. Defer to the primary team. Recommendations: - Obtain an MRI brain without contrast to evaluate the size of the infarction - Agree with aspirin 81 mg daily if cleared by the GI/primary team. Depending on the size of the infarction, we may need to hold anticoagulation therapy from 7-14 days to minimize his risk of ICH. This will also allow time to recover from the GI bleed. He will need clearance from GI when to restart his anticoagulation therapy. - Ordered a lipid panel. Restart his statin therapy. - Neuro checks every 4 hours - PT/OT/CONTACT LENS LATHE OPERATOR to evaluate and treat - Allow permissive hypertension with SBP goal between 140-<200 mmHg for the next 24 hours. Wean off phenylephrine within the next 24 hours. - DVT prophylaxis: SCDs - Stroke education completed. I discussed the case with is daughter Concetta and his son-in-law Steve over the phone. The family was provided with an update. Neurology will continue to follow. Discussed the above recommendations with Dr. Willoughby. ICU time: 60 minutes. Chico Hedrick MD Date: 06/28/2019 Time: 5409
[2019-06-28 15:05] LABS: Fluid Type, Glucose PLEURAL; Fluid Type, Protein, Total PLEURAL
[2019-06-28 15:10] LABS: HDL Cholesterol 29.8 mg/dL
[2019-06-28] MEDS: cefTRIAXone(*) 1 GM in NS 0.9% 50 ML* 50 ML IVPB SCH (19:29)
[2019-06-28] MEDS: Azithromycin 500 mg/250 ml NS 500 MG/250 ML BAG IVPB SCH (20:01)
[2019-06-29 06:12] LABS: ABS Basophils 0.1 10^3/ul (0-0.2); ABS Eosinophils 0.2 10^3/ul (0-0.6); ABS Lymphocytes 0.6 10^3/ul (1.0-4.8); ABS Monocytes 1.4 10^3/ul (0-0.8); ABS Neutrophils 12.3 10^3/ul (1.5-7.7); Eosinophil % 1.7 %; Hematocrit 25 % (42-52); Hemoglobin 8.4 g/dL (14.0-18.0); Lymphocyte % 3.9 %; Mean Corpuscular HGB Conc 34 g/dL (31-36); Mean Corpuscular Hemoglobin 30 pg (27-31); Mean Corpuscular Volume 90 fL (80-94); Mean Platelet Volume 8.5 fL (7.4-10.4); Nucleated Red Blood Cells % 0.2; Platelet Count 297 10^3/uL (150-450); Red Blood Count 2.78 10^6 /uL (4.18-5.48); Red Cell Distribution Width 16 % (10-15); White Blood Count 14.5 10^3/uL (3.5-10.8)
[2019-06-29 06:35] LABS: Albumin 2.4 g/dL (3.2-5.2); Albumin/Globulin Ratio 0.6 (1-3); BUN/Creatinine Ratio 5.4 (8-20); Calcium 8.3 mg/dL (8.6-10.3); EGFR African American 5.7 (>60); EGFR Non-African American 4.7 (>60); Globulin 3.9 g/dL (2-4); Magnesium 1.7 mg/dL (1.9-2.7); Phosphorus 6.3 mg/dL (2.5-5.0); Potassium 3.4 mmol/L (3.5-5.0); Total Bilirubin 0.5 mg/dL (0.2-1.0); Total Protein 6.3 g/dL (6.4-8.9)
[2019-06-29] MEDS ORDERED: Potassium Chlor TAB* 20 MEQ TAB.ER PO ONE (07:20)
[2019-06-29] MEDS: Aspirin EC TAB* 81 MG TAB.EC PO SCH (08:18)
[2019-06-29] MEDS: Metoprolol Tartrate IV* 1 MG/ML 5 ML VIAL IV PRN (08:19)
[2019-06-29] MEDS: Metoprolol Tartrate TAB* 50 mg PO SCH ×2 (08:19→20:36)
[2019-06-29] MEDS ORDERED: Amiodarone 360 MG IVPREMIX* 360 MG/200 ML BAG IV ONE ×2 (08:53→08:54)
[2019-06-29] MEDS ORDERED: Amiodarone 150 MG IVPREMIX* 150 MG/100 ML BAG IV ONE ×2 (08:53→08:55)
[2019-06-29] MEDS: Mupirocin 2% OINT* TUBE TOPICAL SCH (09:20)
--- NOTE | 2019-06-29 10:52 | ECHO ---
*[facility]* [place] [address] Fax #: [phone] Limited Transthoracic Echocardiogram Patient: Steve Vegas : 1935 Study Date: 06/29/2019 Age: 83 Gender: M HR: 138 bpm Height: 72 in /182.9 cm BSA: 2.02 m^2 Weight: 176 lb /80 kg BMI: 23.9 kg/m^2 *Facility Practice Specialist: Lee Ann Real *Referring Physician: * Alexander Willoughby *Reading Physician: * Yang Tucker MD Indications: CVA. Abnormal EKG. History: Atrial flutter. Risk factors: Hypertension. Dyslipidemia. Conclusions Summary: - Left ventricle: Systolic function is normal. The estimated ejection fraction is 55-60%. Systolic function is unchanged from the previous study. - Atrial septum: No defect or patent foramen ovale is identified. Bubble study was negative Study data: Transthoracic echocardiogram, limited study. Procedure: Transthoracic echocardiography was performed. Image quality was suboptimal. A bubble study was performed. Location: ICU Patient status: Inpatient. Patient room number: 4. Findings Left ventricle: Systolic function is normal. The estimated ejection fraction is 55-60%. Systolic function is unchanged from the previous study. Atrial septum: Not well visualized. No defect or patent foramen ovale is identified. Bubble study was negative Prepared and electronically signed by Yang Tucker MD 06/29/2019 10:51
--- NOTE | 2019-06-29 11:00 | PN ---
Subjective Date of Service: 06/29/19 - PAF, GI bleed, s/p CVA, Interval History: Patient states breathing effort has improved. Denies chest pain, appears weak but does not offer any complaints. He went into PAF with RVR for two hours this morning, he converted with IV Amiodarone and is now on Amiodarone gtt. Medications Active Medications: Albuterol/Ipratropium (Duoneb (Albuterol 2.5 Mg/Ipratropium 0.5 Mg)) 1 neb INH [id number] AWAKE PRN PRN Reason: sob/wheexing Aspirin (Aspirin Ec Tab*) 81 mg PO DAILY [facility] Last Admin: 06/29/19 08:18 Dose: 81 mg Pantoprazole Sodium (Protonix Iv Bag*) 80 mg in 250 mls @ 25 mls/hr IV Q10H [facility] Last Admin: 06/28/19 23:59 Dose: Not Given Amiodarone HCl (Nexterone 360 Mg/200 Ml Ivpremix*) 360 mg in 200 mls @ 33.333 mls/hr IV ONCE ONE Stop: 06/29/19 14:52 Last Admin: 06/29/19 09:18 Dose: 33.333 mls/hr Amiodarone HCl (Nexterone 360 Mg/200 Ml Ivpremix*) 360 mg in 200 mls @ 16.667 mls/hr IV .SEE PROTOCOL [facility] Metoprolol Tartrate (Lopressor Iv*) 5 mg IV Q6H PRN PRN Reason: BLOOD PRESSURE Last Admin: 06/29/19 08:19 Dose: 5 mg Metoprolol Tartrate (Lopressor Tab*) 50 mg PO Q12H [facility] Last Admin: 06/29/19 08:19 Dose: 50 mg Morphine Sulfate (Morphine Inj (Syringe))*) 1 mg IV Q4H PRN PRN Reason: PAIN - SEVERE Last Admin: 06/27/19 03:45 Dose: 1 mg Mupirocin (Bactroban 2 % Oint*) 1 applic TOPICAL DAILY [facility] Last Admin: 06/29/19 09:20 Dose: 1 applic Objective Vital Signs: Temp Pulse Resp BP Pulse Ox 99.9 F 67 19 134/65 96 06/29/19 07:32 06/29/19 10:30 06/29/19 10:30 06/29/19 10:30 06/29/19 10:30 Oxygen Devices in Use Now: Nasal Cannula, OxyMask Appearance: frail, ill appearing male patient. A+Ox3. Ears/Nose/Mouth/Throat: NL Teeth, Lips, Gums, Mucous Membranes Moist Neck: Trachea Midline, No Thyroid Enlargement, Masses Respiratory: - - diminished in R>L base with + inspiratory rales noted. Abdominal: NL Sounds; No Tenderness; No Distention Extremities: No Edema Skin: No Rash or Ulcers Neurological: Alert and Oriented x 3 Lines/Tubes/Other Access: Clean, Dry and Intact Peripheral IV Laboratory Results: 06/29/19 05:45 06/29/19 05:45 INR (Anticoag Therapy) 1.09 (0.82-1.09) 06/28/19 05:08 APTT 42.9 seconds (26.0-38.0) H 06/28/19 05:08 Total Bilirubin 0.50 mg/dL (0.2-1.0) 06/29/19 05:45 AST 93 U/L (13-39) H 06/29/19 05:45 ALT 91 U/L (7-52) H 06/29/19 05:45 Alkaline Phosphatase 123 U/L (34-104) H 06/29/19 05:45 B-Natriuretic Peptide 1093 pg/mL (<=100) H 06/25/19 23:38 Total Protein 6.3 g/dL (6.4-8.9) L 06/29/19 05:45 Albumin 2.4 g/dL (3.2-5.2) L 06/29/19 05:45 Globulin 3.9 g/dL (2-4) 06/29/19 05:45 Albumin/Globulin Ratio 0.6 (1-3) L 06/29/19 05:45 Triglycerides 101 mg/dL 06/28/19 04:26 Cholesterol 89 mg/dL 06/28/19 04:26 LDL Cholesterol 39 mg/dL 06/28/19 04:26 HDL Cholesterol 29.8 mg/dL 06/28/19 04:26 06/25/19 06/26/19 06/26/19 23:38 02:52 06:14 Troponin I 1.28 H* 1.89 H* 2.75 H* 03/06/26/19 06/26/19 08:50 12:25 15:30 Troponin I 4.68 H* 6.49 H* 8.28 H* 06/26/19 06/27/19 06/27/19 21:34 05:01 09:17 Troponin I 9.96 H* 11.30 H* 10.05 H* Laboratory Results - last 24 hr 06/26/19 06/26/19 06/28/19 11:48 11:48 04:26 WBC RBC Hgb Hct MCV MCH MCHC RDW Plt Count MPV Neut % (Auto) Lymph % (Auto) [place] % (Auto) Eos % (Auto) Baso % (Auto) Absolute Neuts (auto) Absolute Lymphs (auto) Absolute Monos (auto) Absolute Eos (auto) Absolute Basos (auto) Absolute Nucleated RBC Nucleated RBC % Sodium 134 L Potassium 3.3 L Chloride 98 L Carbon Dioxide 21 L Anion Gap 15 H BUN 63 H Creatinine 10.65 H Est GFR ( Amer) 5.6 Est GFR (Non-Af Amer) 4.7 BUN/Creatinine Ratio 5.9 L Glucose 145 H POC Glucose (mg/dL) Calcium 7.9 L Phosphorus Magnesium Total Bilirubin 0.40 AST 51 H ALT 34 Alkaline Phosphatase 64 Total Protein 6.0 L Albumin 2.6 L Globulin 3.4 Albumin/Globulin Ratio 0.8 L Triglycerides 101 Cholesterol 89 LDL Cholesterol 39 HDL Cholesterol 29.8 Vitamin B12 506 Fluid Source Pleural Pleural Fluid Glucose 101 Fluid Total Protein 3.0 06/28/19 06/29/19 06/29/19 04:31 05:45 05:45 WBC 14.5 H RBC 2.78 L Hgb 8.4 L Hct 25 L MCV 90 MCH 30 MCHC 34 RDW 16 H Plt Count 297 MPV 8.5 Neut % (Auto) 84.3 Lymph % (Auto) 3.9 [place] % (Auto) 9.3 Eos % (Auto) 1.7 Baso % (Auto) 0.8 Absolute Neuts (auto) 12.3 H Absolute Lymphs (auto) 0.6 L Absolute Monos (auto) 1.4 H Absolute Eos (auto) 0.2 Absolute Basos (auto) 0.1 Absolute Nucleated RBC 0.0 Nucleated RBC % 0.2 Sodium 138 Potassium 3.4 L Chloride 100 L Carbon Dioxide 26 Anion Gap 12 H BUN 57 H Creatinine 10.50 H Est GFR ( Amer) 5.7 Est GFR (Non-Af Amer) 4.7 BUN/Creatinine Ratio 5.4 L Glucose 96 POC Glucose (mg/dL) 181 H Calcium 8.3 L Phosphorus 6.3 H Magnesium 1.7 L Total Bilirubin 0.50 AST 93 H ALT 91 H Alkaline Phosphatase 123 H Total Protein 6.3 L Albumin 2.4 L Globulin 3.9 Albumin/Globulin Ratio 0.6 L Triglycerides Cholesterol LDL Cholesterol HDL Cholesterol Vitamin B12 Fluid Source Fluid Glucose Fluid Total Protein Diagnostic Imaging: *[facility]* [place] [address] Fax #: [phone] Limited Transthoracic Echocardiogram Patient: Janeth Vegas : 1935 Study Date: 06/29/2019 Age: 83 Gender: M HR: 138 bpm Height: 72 in /182.9 cm BSA: 2.02 m^2 Weight: 176 lb /80 kg BMI: 23.9 kg/m^2 *Distillery Worker: Lee Ann Real *Referring Physician: * Alexander Willoughby *Reading Physician: * Yang Tucker MD Indications: CVA. Abnormal EKG. History: Atrial flutter. Risk factors: Hypertension. Dyslipidemia. Conclusions Summary: - Left ventricle: Systolic function is normal. The estimated ejection fraction is 55-60%. Systolic function is unchanged from the previous study. - Atrial septum: No defect or patent foramen ovale is identified. Bubble study was negative Study data: Transthoracic echocardiogram, limited study. Procedure: Transthoracic echocardiography was performed. Image quality was suboptimal. A bubble study was performed. Location: ICU Patient status: Inpatient. Patient room number: 4. Findings Left ventricle: Systolic function is normal. The estimated This report is only to be considered final once signed by the Provider(s) as displayed in the "<Electronically Signed by >" field (s). Absence of a signature indicates the report is in a draft status and still needs to be finalized. In the event this document was created by someone other than the signing Provider, the individual initiating the document will be listed in the "Entered by:" or "Dictated by:" medrano. Patient Name: JANETH VEGAS Medical Record#: [id number] Ordering Physician: Alexander Willoughby MD Acct.#: [id number] : 1935 Age: 83 Sex: M Location: [facility]ARE UNIT Exam Date: 06/29/19 0600 ADM Status: ADM IN Order Information: CHEST AP/PORT Accession Number: [id number] CPT: 17316 HISTORY: hypoxia COMPARISONS: July 04, 2019 VIEWS: 1: frontal AP view of the chest at 5:45 AM FINDINGS: LINES AND TUBES: None. CARDIOMEDIASTINAL SILHOUETTE: The cardiomediastinal silhouette is normal for portable technique. PLEURA: There is a small to moderate right pleural effusion with a small left pleural effusion. This is similar to the previous examination. LUNG PARENCHYMA: There is a diffuse reticular pattern with indistinct pulmonary vessels. There is patchy alveolar opacification lung bases bilaterally. There is been improved aeration of the perihilar left lung. ABDOMEN: The upper abdomen is clear. There is no subphrenic gas. BONES AND SOFT TISSUES: No bone or soft tissue abnormalities are noted. IMPRESSION: 1. BIBASILAR ATELECTASIS VERSUS CONSOLIDATION WITH IMPROVED AERATION OF THE LEFT PERIHILAR LUNG. 2. PULMONARY INTERSTITIAL EDEMA. 3. BILATERAL PLEURAL EFFUSIONS. <Electronically signed by Iban Cornelius MD in OV> 06/29/19820 Dictated By: Iban Cornelius MD Dictated Date/Time: 06/29/19819 Transcribed Date/Time: 06/29/19819 Copy to: CC:Gilberto Trinh MD; Kizzy Villatoro MD; Chrissie Seaman MD; Yang Tucker MD; Alexander Willoughby MD; Vikram Cervantes MD Imaging - [facility] Imaging - [place] [facility] [address] [address] ph ([phone]) ph ([phone]) ph ([phone]) This report is only to be considered final once signed by the Provider(s) as displayed in the "<Electronically Signed by >" field (s). Absence of a signature indicates the report is in a draft status and still needs to be finalized. In the event this document was created by someone other than the signing Provider, the individual initiating the document will be listed in the "Entered by:" or "Dictated by:" medrano. 1 of 2 EKG Data: ECG today is pending Telemetry; Sinus rhythm rate 60-70's. Had + PAF with RVR earlier this morning. Assessment/Plan #1 History PAF with RVR; Now in NSR on Amiodarone gtt. Will update ECG to evaluate QT interval. Keep K+ >4, Mag>2. Not on OAC due to recent GI bleed . GI following patient. On Toprol 50 BID and ASA 81/day. #2 h/o Moderate ; peak 42, mean 25. Could be contributing to GI bleed. #3 S/P NSTEMI; felt to be demand based. Hgb 5.4 upon presentation. Troponin peaked on 11.3 on 06/27/19. Echo revealed LVEF 50-55% with mid apical anteroseptal hypokinesis. He is on ASA, statin and bblocker therapy. #4 s/p GI bleed; had initial upper GI bleed 06/11/19. Was taken off of Coumadin and had recurrent Melena. Received PRBCs this admit ( Hgb 5.4). Currently, Hgb 8.4. GI following. On PPI therapy. Awaiting clearance for OAC if a possibility #5 s/p Acute embolic CVA; Neuro following. Echo with bubble study did not reveal PFO. On ASA 81/day. #6 ESRD on peritoneal dialysis. Not clear as to why patient has re accumulating pleural effusions. There was concern that perhaps it was related to the peritoneum and he would be better suited for HD to help with volume management. Dr. Cervantes and nephrology following. #7 Disposition pending course. Patient full code. Would continue Amiodarone gtt. Not on OAC as detailed in above assessment and plan Attending: Yang Tucker
[2019-06-29] MEDS ORDERED: Magnesium Sulfate 2 GM IV* 2 GM/50 ML BAG IVPB ONE (11:23)
--- NOTE | 2019-06-29 11:25 | PN ---
Progress Note - Progress Note Date of Service: 06/29/19 Note: Inpatient Nephrology FU Note: Performed by Dr. Beka Perez, [facility] [address] Nephrology 06/29/2019 83 YO WM with ESRD on PD. GI Bleeding & severe Anemia NSTEMI Rt>Lt PLEF. Pulmonary edema and HFpEF AF and RVR Lt CVA: Embolic involving Rt-hemisphere, Lt Hemiparesis, left neglect. Today, he feels Ok. No edema. In AF with RVR, started on IV Amiodarone. s/p Large (1.8 Rt PLEF), and dialyzed for 24 Hr PD, long dwells on Saturday and Saturday, although hes high membrane, typically should be short frequent dwells. Saturday-Saturday: 24Hr, 8 Exchanges, 2L, 2.5% and UF 2.2 L Saturday-Saturday: 24Hr, 6 Exchanges, 2L, 2.5% and UF 1.5 L Saturday-Saturday: 12Hr, 6 Exchanges, 2L, 2.5% & 4.25% and UF 2.5 L Todays prescription: 12Hr, 6 Exchanges, 2L, 2.5% I believe the short dwells will be helpful for fluid overload. Echo: LVEF 55-60%. CXR~06/28 Small-Moderate Rt PLEF & small Lt PLEF B/L Atelectasis vs. Consolidation & improved aeration of Lt Lung. Pulmonary Interstitial Edema. Active Medications: Albuterol/Ipratropium Aspirin Pantoprazole Amiodarone drip Magnesium Metoprolol Morphine Sulfate Mupirocin Objective: .Vital Signs: Temp Pulse Resp BP Pulse Ox 99.9 F 67 19 134/65 96 06/29/19 07:32 06/29/19 10:30 06/29/19 10:30 06/29/19 10:30 06/29/19 10:30 .Heart: AFib No murmur No LE Edema .Lungs: Asymmetric Air entry. Lt better than Rt. Occasional crackles .Extremities: No LE edema Laboratory Reviewed and pertinent are: ABG pH 7.41 (7.35-7.45) 06/26/19 23:55 ABG HCO3 22.9 mmol/L (19-31) 06/26/19 23:55 Sodium 138 mmol/L (135-145) 06/29/19 05:45 Potassium 3.4 mmol/L (3.5-5.0) L 06/29/19 05:45 BUN 57 mg/dL (6-24) H 06/29/19 05:45 Creatinine 10.50 mg/dL (0.67-1.17) H 06/29/19 05:45 Calcium 8.3 mg/dL (8.6-10.3) L 06/29/19 05:45 Magnesium 1.7 mg/dL (1.9-2.7) L 06/29/19 05:45 AST 93 U/L (13-39) H 06/29/19 05:45 ALT 91 U/L (7-52) H 06/29/19 05:45 Triglycerides 101 mg/dL 06/28/19 04:26 Cholesterol 89 mg/dL 06/28/19 04:26 LDL Cholesterol 39 mg/dL 06/28/19 04:26 Assessment and Plan: ESRD on PD. PD prescription as above, short frequent dwell. I can tweak his regimen further if necessary, with more frequent and shorter dwells. No indication for Acute HD for fluid management yet. With regard to Rt PLEF, s/p Drainage 1.8 L, Pleural fluid glucose was 101, unlikely related to PD, as pleuroperitoneal fluid is high in Glucose. Although PD can cause isolated Rt PLEF, It's very high in Glucose. This PLEF, albeit asymmetric, very likely related to fluid overload 2/2 ESRD, hence aggressive fluid management with PD as above. BP Ok Keep K >4.0 and Mg>2.0 He was informed about lab/radiology results & prognosis. All questions were answered. He was made part of the treatment plan. Case discussed with ICU team I reviewed labs and CXR myself
[2019-06-29] MEDS ORDERED: Artificial Tear OPHTH.OINT* 3.5 GM LEFT EYE PRN (11:26)
[2019-06-29] MEDS: Pantoprazole* 80 mg IN NS 80 MG/250 ML BAG IV SCH ×2 (12:13→21:07)
--- NOTE | 2019-06-29 14:24 | PN ---
Date of Service: 06/29/19 Critical Care Services: Doing OK this AM except for AF with rapid ventricular response. Unresponsive to beta blockers and no diltiazem because on neosynephrine - so given amiodarone and converted to sinus rhythm. Currently on amio drip at 0.5 mg/min. Vital Signs: Temp Pulse Resp BP SpO2 FiO2 99.1 F 80 29 160/83 93 100 Physical Exam: Gen:Alert and responds to verbal commands HEENT:Right eye has left field deficit and left has lower field deficit. Lungs:Clear Cardiac: reg rhythm Abdomen: +distended. Nontender Extremities: Left sided hemiparesis Neuro: In addition to visual field defects snf left-sided hemiparesis, patient neglects left leg Fluid Balance (Past 24 Hours): 06/27/19 06/28/19 06/29/19 06:59 06:59 06:59 Intake Total 516 2076 2132 Output Total 3600 2041 1210 Balance -3084 35 922 Weight 181 lb 176 lb 173 lb Intake: IV Fluids 102 262 178 NS (0.9%) 102 262 178 IVPB 335 526 ABX - AZITHROMYCIN 274 306 KCl 220 ceftriaxone 61 Medicated IV 127 879 918 CC - Phenylephrine/ 348 Neosynephrine Cardizem 100 GEN - Pantoprazole/ 75 509 570 Protonix abx 52 270 Oral 0 600 510 Packed Cells 287 Output: Urine 0 0 0 Mackey 0 Other 2041 1210 Irrigation 3600 Other: Other Amount Description Peritoneal Dialysis Peritoneal Dialysis Labs: 06/26/19 06/26/19 06/26/19 11:48 11:48 11:48 WBC RBC Hgb Hct MCV MCH MCHC RDW Plt Count MPV Neut % (Auto) Lymph % (Auto) [place] % (Auto) Eos % (Auto) Baso % (Auto) Absolute Neuts (auto) Absolute Lymphs (auto) Absolute Monos (auto) Absolute Eos (auto) Absolute Basos (auto) Absolute Nucleated RBC Nucleated RBC % Sodium Potassium Chloride Carbon Dioxide Anion Gap BUN Creatinine Est GFR ( Amer) Est GFR (Non-Af Amer) BUN/Creatinine Ratio Glucose POC Glucose (mg/dL) Calcium Phosphorus Magnesium Total Bilirubin AST ALT Alkaline Phosphatase Total Protein Albumin Globulin Albumin/Globulin Ratio Triglycerides Cholesterol LDL Cholesterol HDL Cholesterol Vitamin B12 Fluid Source Pleural Pleural Fluid Cell Count Rvw By Fluid Glucose 101 Fluid Total Protein 3.0 06/28/19 06/28/19 06/29/19 04:26 04:31 05:45 WBC 14.5 H RBC 2.78 L Hgb 8.4 L Hct 25 L MCV 90 MCH 30 MCHC 34 RDW 16 H Plt Count 297 MPV 8.5 Neut % (Auto) 84.3 Lymph % (Auto) 3.9 [place] % (Auto) 9.3 Eos % (Auto) 1.7 Baso % (Auto) 0.8 Absolute Neuts (auto) 12.3 H Absolute Lymphs (auto) 0.6 L Absolute Monos (auto) 1.4 H Absolute Eos (auto) 0.2 Absolute Basos (auto) 0.1 Absolute Nucleated RBC 0.0 Nucleated RBC % 0.2 Sodium 134 L Potassium 3.3 L Chloride 98 L Carbon Dioxide 21 L Anion Gap 15 H BUN 63 H Creatinine 10.65 H Est GFR ( Amer) 5.6 Est GFR (Non-Af Amer) 4.7 BUN/Creatinine Ratio 5.9 L Glucose 145 H POC Glucose (mg/dL) 181 H Calcium 7.9 L Phosphorus Magnesium Total Bilirubin 0.40 AST 51 H ALT 34 Alkaline Phosphatase 64 Total Protein 6.0 L Albumin 2.6 L Globulin 3.4 Albumin/Globulin Ratio 0.8 L Triglycerides 101 Cholesterol 89 LDL Cholesterol 39 HDL Cholesterol 29.8 Vitamin B12 506 Fluid Source Fluid Cell Count Rvw By Fluid Glucose Fluid Total Protein 06/29/19 05:45 WBC RBC Hgb Hct MCV MCH MCHC RDW Plt Count MPV Neut % (Auto) Lymph % (Auto) [place] % (Auto) Eos % (Auto) Baso % (Auto) Absolute Neuts (auto) Absolute Lymphs (auto) Absolute Monos (auto) Absolute Eos (auto) Absolute Basos (auto) Absolute Nucleated RBC Nucleated RBC % Sodium 138 Potassium 3.4 L Chloride 100 L Carbon Dioxide 26 Anion Gap 12 H BUN 57 H Creatinine 10.50 H Est GFR ( Amer) 5.7 Est GFR (Non-Af Amer) 4.7 BUN/Creatinine Ratio 5.4 L Glucose 96 POC Glucose (mg/dL) Calcium 8.3 L Phosphorus 6.3 H Magnesium 1.7 L Total Bilirubin 0.50 AST 93 H ALT 91 H Alkaline Phosphatase 123 H Total Protein 6.3 L Albumin 2.4 L Globulin 3.9 Albumin/Globulin Ratio 0.6 L Triglycerides Cholesterol LDL Cholesterol HDL Cholesterol Vitamin B12 Fluid Source Fluid Cell Count Rvw By Fluid Glucose Fluid Total Protein Studies: Pleural fluid glucose = 101 mg/dL: plasma glucose = 96 mg/dL. Nutrition: Unrestricted diet Impression: Major problems include: 1. 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 (? embolic) 2. Gastroduodenal ulcers with possible continued oozing from gastric lesions. 3. Afib with rapid ventricular response 4. Chronic renal failure Rx peritoneal dialysis 5. Right-sided pleural effusion (moderate size). Pleural glucose level suggests that effusion is not related to the peritoneal dialysis. Plan: 1. Will speak with GI about repeat upper endoscopy 2. Oral amiodarone for long-term Rx of AFib. 3. Cardiology service to decide about future anticoagulation 4. Physical therapy 5. repeat MRI per neurology service. Critical Care Time: 50 minutes
--- NOTE | 2019-06-29 14:31 | PN ---
Progress Note - Progress Note Date of Service: 06/29/19 Note: GI fu: asleep, easily awoken, offers no GI complaints, constipated VS: 160/83,79,4L oxygen nad, pale, frail +bs, soft, nt/nd hgb 8.4<----8.1, 5.4 BUN better at 57 anemia, afib on amio, neurological deficit -hgb stable with no active bleeding, bun trending down -new neuro issues, pulm condition slightly better -will continue to follow Gilberto Saravia MD
[2019-06-29] MEDS: Amiodarone 360 MG IVPREMIX* 360 MG/200 ML BAG IV SCH (15:12)
[2019-06-29] MEDS ORDERED: cefTRIAXone(*) 1 GM in NS 0.9% 50 ML* 50 ML IVPB SCH (18:00)
[2019-06-30] MEDS: Amiodarone 360 MG IVPREMIX* 360 MG/200 ML BAG IV SCH (02:34)
[2019-06-30 06:15] LABS: ABS Basophils 0.1 10^3/ul (0-0.2); ABS Eosinophils 0.5 10^3/ul (0-0.6); ABS Lymphocytes 0.8 10^3/ul (1.0-4.8); ABS Monocytes 1.1 10^3/ul (0-0.8); ABS Neutrophils 8.3 10^3/ul (1.5-7.7); Eosinophil % 4.2 %; Hematocrit 22 % (42-52); Hemoglobin 7.4 g/dL (14.0-18.0); Lymphocyte % 7.4 %; Mean Corpuscular HGB Conc 34 g/dL (31-36); Mean Corpuscular Hemoglobin 31 pg (27-31); Mean Corpuscular Volume 90 fL (80-94); Nucleated Red Blood Cells % 0.1; Platelet Count 261 10^3/uL (150-450); Red Blood Count 2.39 10^6 /uL (4.18-5.48); Red Cell Distribution Width 16 % (10-15); White Blood Count 10.7 10^3/uL (3.5-10.8)
[2019-06-30 06:31] LABS: Calcium 7.8 mg/dL (8.6-10.3); EGFR African American 5.7 (>60); EGFR Non-African American 4.7 (>60); Potassium 3.2 mmol/L (3.5-5.0)
[2019-06-30] MEDS: Pantoprazole* 80 mg IN NS 80 MG/250 ML BAG IV SCH ×2 (07:53→19:32)
[2019-06-30] MEDS: Aspirin EC TAB* 81 MG TAB.EC PO SCH (08:02)
[2019-06-30] MEDS: Metoprolol Tartrate TAB* 50 mg PO SCH ×2 (08:02→20:08)
[2019-06-30] MEDS: traZODone TAB* 50 MG TAB PO PRN ×2 (08:02→20:08)
[2019-06-30] MEDS: Mupirocin 2% OINT* TUBE TOPICAL SCH (09:08)
[2019-06-30 09:45] LABS: Magnesium 2.2 mg/dL (1.9-2.7)
[2019-06-30] MEDS: KCL 20 MEQ/100 ML IVPREMIX* 20 MEQ/100 ML BAG IV SCH ×2 (09:48→11:02)
[2019-06-30] MEDS ORDERED: Midazolam* 1 MG/ML 10 ML VIAL (10 MG) ONE (10:45)
[2019-06-30] MEDS ORDERED: fentaNYL* 50 MCG/ML 2 ML VIAL (100 MCG VIAL) ONE (10:45)
--- NOTE | 2019-06-30 12:11 | PN ---
Progress Note - Progress Note Date of Service: 06/30/19 Note: GI Brief EGD Note: E: nml G: Very nodular antrum with my oozing in multiple foci. Biopsies again obtained to r/o malignancy will also stain for amyloid. Extensive APC done at 35W of all visible foci. No further bleeding at procedure termination D: Nodularity in bulb, 2 clips in D3 still visible and intact without fresh or old blood. Rec: Await bx results, good samples obtained and will stain for amyloid in addition to r/o malignancy. Await results of plueral cytology High risk for rebleeding again unfortunately due to the nature of this antral lesion, will be poor anticoagulation candidate. PPI BID Ok for diet. Juan Block DO 06/30/19 1210
[2019-06-30] MEDS ORDERED: Glucagon* 1 MG VIAL ONE (12:43)
--- NOTE | 2019-06-30 14:31 | PN ---
Progress Note - Progress Note Date of Service: 06/30/19 Note: Inpatient Nephrology FU Note: Performed by Dr. Beka Perez, [facility] Nephrology 06/30/2019 83 YO WM with ESRD on PD. GI Bleeding & severe Anemia Had EGD today, very nodular antrum, oozing, poor candidate for anticoagulation. AF on IV Amio, completed. Rt-hemisphere embolic CVA, with Lt Hemiparesis & neglect. Sleepy but feels Ok. No edema. N SOB. He isn't a candidate for PD upon discharge, in view of his CVA. Saturday-Saturday: 24Hr, 8 Exchanges, 2L, 2.5% and UF 2.2 L Saturday-Saturday: 24Hr, 6 Exchanges, 2L, 2.5% and UF 1.5 L Saturday-Saturday: 12Hr, 6 Exchanges, 2L, 2.5% & 4.25% and UF 2.5 L Saturday-Saturday: 12Hr, 6 Exchanges, 2L, 2.5% and UF 1L Today's PD regimen: 12Hr, 6 Exchanges, 2L fill, 2.5% alternating with 4.25% Active Medications: Albuterol/Ipratropium Aspirin Pantoprazole Metoprolol Morphine Sulfate Mupirocin Trazodone Objective: .Vital Signs: Temp Pulse Resp BP Pulse Ox 97.4 F 73 28 151/77 91 06/30/19 12:00 06/30/19 11:00 06/30/19 11:00 06/30/19 11:00 06/30/19 11:00 .Heart: AFib No murmur No LE Edema .Lungs: Occasional crackles .Extremities: No LE edema Laboratory Reviewed and pertinent are: ABG pH 7.41 (7.35-7.45) 06/26/19 23:55 ABG HCO3 22.9 mmol/L (19-31) 06/26/19 23:55 Sodium 136 mmol/L (135-145) 06/30/19 06:07 Potassium 3.2 mmol/L (3.5-5.0) L 06/30/19 06:07 BUN 53 mg/dL (6-24) H 06/30/19 06:07 Creatinine 10.51 mg/dL (0.67-1.17) H 06/30/19 06:07 Calcium 7.8 mg/dL (8.6-10.3) L 06/30/19 06:07 Magnesium 2.2 mg/dL (1.9-2.7) 06/30/19 06:07 AST 93 U/L (13-39) H 06/29/19 05:45 ALT 91 U/L (7-52) H 06/29/19 05:45 Triglycerides 101 mg/dL 06/28/19 04:26 Cholesterol 89 mg/dL 06/28/19 04:26 LDL Cholesterol 39 mg/dL 06/28/19 04:26 Assessment and Plan: ESRD on PD. PD prescription as above. Increase Dextrose to augment UF. Goal 2 L/d I don't think he's a candidate for outpatient PD, in view of his Stroke, and although there is no indication for Acute HD, I plan to switch him to Outpatient HD. Keep K >4.0 and Mg>2.0. Give PO KCl. BP Ok He was informed about lab/radiology results & prognosis. All questions were answered. He was made part of the treatment plan. Case discussed with ICU team
--- NOTE | 2019-06-30 15:19 | PRO ---
CC: Dr. Chrissie Seaman; Dr. Kizzy Villatoro* DATE OF PROCEDURE: 06/30/2019. INDICATION FOR PROCEDURE: Melena with acute blood loss anemia. PROCEDURE PERFORMED: Complete esophagogastroduodenoscopy with hemostasis via APC and biopsies. MEDICATIONS GIVEN: 9 mg IV Midazolam and 25 mcg IV Fentanyl. DESCRIPTION OF PROCEDURE: After the EGD procedure, including the risks, benefits, and alternatives, with the risks not limited to perforation, surgery, missed lesions, and/or were explained to the patient, written informed consent was obtained. IV medication was given and a bite-block was placed between the teeth. The adult Olympus gastroscope was then inserted into the patient's oropharynx into the tubular esophagus. The tubular esophagus was grossly normal in appearance. The scope was advanced through the lower esophageal sphincter into the stomach. Again was this antral nodularity that was prevalent before, but more pronounced today. I did take good biopsy samples in three to four different sites of this nodularity. Bleeding was noted before the biopsies, oozing in nature in multiple different foci throughout the antrum. The decision was made to APC ablate any potential any potential foci. This was done at 35 bright with excellent effect. Multiple passes were taken along each area of this nodularity and any darker spots within it. At the conclusion of the procedure, I did not see any evidence of oozing within the antrum. The scope was then advanced into the widely patent pylorus into the duodenal bulb, C-loop and distal duodenum. There was some nodularity again present in the duodenum similar to the stomach. Two prior clips from the previous endoscopy were seen in D3. The scope was then removed from the patient. He tolerated the procedure well. He was returned to the recovery room in stable condition. IMPRESSION: 1. Complete esophagogastroduodenoscopy with biopsies and hemostasis with APC. 2. Nodularity within the antrum, unclear etiology. Biopsies taken. 3. Diffuse oozing from multiple foci within the nodularity of the antrum ablated with APC at 35 bright with good effect. RECOMMENDATIONS: Unclear significance of this antral nodularity. It does seem more pronounced than the previous upper endoscopy. I did take samples again today, but will stain for amyloidosis in addition and also rule out malignancy. I did extensive APC of all possible foci that I could see within the antrum. No further bleeding was noted at the termination of the procedure. Await results of the biopsies. Good samples were obtained today. Also, await results of the pleural cytology. He is high risk for rebleeding again unfortunately due to the nature of this lesion and endoscopic treatment is not definitive. He will likely be a poor candidate for anticoagulation. Recommend b.i.d. PPI therapy. He is okay for diet. [id number]/[facility] #: [id number] [facility] HEALTH SYSTEMRodney
[2019-06-30] MEDS: Amiodarone TAB* 200 MG PO SCH ×2 (15:22→20:08)
[2019-06-30 16:30] LABS: Hematocrit 25 % (42-52); Hemoglobin 8.1 g/dL (14.0-18.0); Mean Corpuscular HGB Conc 33 g/dL (31-36); Mean Corpuscular Hemoglobin 30 pg (27-31); Mean Corpuscular Volume 91 fL (80-94); Mean Platelet Volume 7.9 fL (7.4-10.4); Platelet Count 279 10^3/uL (150-450); Red Blood Count 2.69 10^6 /uL (4.18-5.48); Red Cell Distribution Width 16 % (10-15); White Blood Count 11.3 10^3/uL (3.5-10.8)
[2019-06-30 16:48] LABS: BUN/Creatinine Ratio 5.5 (8-20); Calcium 8.2 mg/dL (8.6-10.3); EGFR African American 5.6 (>60); EGFR Non-African American 4.7 (>60); Potassium 3.4 mmol/L (3.5-5.0)
--- NOTE | 2019-06-30 17:24 | PN ---
Date of Service: 06/30/19 Critical Care Services: Repeat upper endoscopy today revealed cobblestone appearance of antral mucosa with multiple sites oozing blood - these were cauterized and punch biopsies obtained. No adverse consequences of procedure. Vital Signs: Temp Pulse Resp BP SpO2 FiO2 97.4 F 68 23 143/71 100 100 Physical Exam: Gen:Awake and aware HEENT:Right facial droop. Vision exam same as yesterday Lungs: Occasional rhonchi Cardiac: Reg rhythm Abdomen: Peritoneal catheters in place Extremities: Right hemiparesis Fluid Balance (Past 24 Hours): 06/29/19 06/30/19 06:59 06:59 Intake Total 2132 1882 Output Total 1210 75 Balance 922 1807 Weight 173 lb 4.8 oz 175 lb 12.8 oz Intake: IV Fluids 178 116 NS (0.9%) 178 116 IVPB 526 55 ABX - AZITHROMYCIN 306 KCl 220 Mag 55 ceftriaxone Medicated IV 918 1166 CC - Amiodarone 522 CC - Phenylephrine/ 348 56 Neosynephrine Cardizem GEN - Pantoprazole/ 570 588 Protonix abx Oral 510 545 Output: Urine 0 75 Other 1210 Other: Other Amount Description Peritoneal Dialysis Labs: 06/30/19 06/30/19 06/30/19 06:07 06:07 16:20 WBC 10.7 RBC 2.39 L Hgb 7.4 L Hct 22 L MCV 90 MCH 31 MCHC 34 RDW 16 H Plt Count 261 MPV 8.0 Neut % (Auto) 77.5 Lymph % (Auto) 7.4 [place] % (Auto) 9.9 Eos % (Auto) 4.2 Baso % (Auto) 1.0 Absolute Neuts (auto) 8.3 H Absolute Lymphs (auto) 0.8 L Absolute Monos (auto) 1.1 H Absolute Eos (auto) 0.5 Absolute Basos (auto) 0.1 Absolute Nucleated RBC 0.0 Nucleated RBC % 0.1 Sodium 136 134 L Potassium 3.2 L 3.4 L Chloride 98 L 96 L Carbon Dioxide 25 25 Anion Gap 13 H 13 H BUN 53 H 58 H Creatinine 10.51 H 10.63 H Est GFR ( Amer) 5.7 5.6 Est GFR (Non-Af Amer) 4.7 4.7 BUN/Creatinine Ratio 5.0 L 5.5 L Glucose 98 174 H Calcium 7.8 L 8.2 L Magnesium 2.2 06/30/19 16:20 WBC 11.3 H RBC 2.69 L Hgb 8.1 L Hct 25 L MCV 91 MCH 30 MCHC 33 RDW 16 H Plt Count 279 MPV 7.9 Neut % (Auto) Lymph % (Auto) [place] % (Auto) Eos % (Auto) Baso % (Auto) Absolute Neuts (auto) Absolute Lymphs (auto) Absolute Monos (auto) Absolute Eos (auto) Absolute Basos (auto) Absolute Nucleated RBC Nucleated RBC % Sodium Potassium Chloride Carbon Dioxide Anion Gap BUN Creatinine Est GFR ( Amer) Est GFR (Non-Af Amer) BUN/Creatinine Ratio Glucose Calcium Magnesium Studies: UGI endoscopy Nutrition: Oral diet Impression: 1. Possibilities for bleeding area in gastric antrum are amyloidosis and gastric neoplasm. 2. Still no answer for right pleural effusion 3. NAYELI persists and Rx with peritoneal dialysis Plan: 1. Follow Hb and transfuse if Hb < 7 g/dL 2. Await gastric biopsies 3. Await pleural fluid cytology 4. Start rehab for stroke Critical Care Time: 35 minutes
[2019-06-30] MEDS: Pantoprazole TAB * 40 MG TAB PO SCH (20:08)
[2019-07-01 05:10] LABS: Hematocrit 24 % (42-52); Hemoglobin 8.3 g/dL (14.0-18.0); Mean Corpuscular HGB Conc 35 g/dL (31-36); Mean Corpuscular Hemoglobin 32 pg (27-31); Mean Corpuscular Volume 91 fL (80-94); Mean Platelet Volume 8.5 fL (7.4-10.4); Platelet Count 277 10^3/uL (150-450); Red Blood Count 2.62 10^6 /uL (4.18-5.48); Red Cell Distribution Width 17 % (10-15); White Blood Count 9.2 10^3/uL (3.5-10.8)
[2019-07-01 07:13] LABS: BUN/Creatinine Ratio 5.3 (8-20); Calcium 8.3 mg/dL (8.6-10.3); Potassium 3.2 mmol/L (3.5-5.0)
[2019-07-01] MEDS: Metoprolol Tartrate TAB* 50 mg PO SCH (08:36)
[2019-07-01] MEDS: Pantoprazole TAB * 40 MG TAB PO SCH ×2 (08:37→22:09)
[2019-07-01] MEDS: Amiodarone TAB* 200 MG PO SCH ×2 (08:37→22:09)
[2019-07-01] MEDS: Aspirin EC TAB* 81 MG TAB.EC PO SCH (08:37)
[2019-07-01] MEDS: Mupirocin 2% OINT* TUBE TOPICAL SCH (08:46)
--- NOTE | 2019-07-01 09:50 | PN ---
Progress Note - Progress Note Date of Service: 07/01/19 Note: Inpatient Nephrology FU Note: Performed by Dr. Beka Perez, [facility] Nephrology 07/01/2019 83 YO WM ESRD on PD. Failure to Thrive Recurrent GI Bleeding presented with severe Anemia 2/2 nodular gastric antrum. Not a candidate for anticoagulation, per GI. At very high risk for recurrent Stroke, s/p Rt-hemisphere embolic CVA, with Lt Hemiparesis & neglect. AF No edema. I asked him about Hospice care as he isn't a candidate for PD in view of his CVA , and the fact that he will be switched to in-Center HD after discharge. He said he's confused and can't decide, and asked me to call his Kids, which I will do. Saturday-Saturday: 24Hr, 8 Exchanges, 2L, 2.5% and UF 2.2 L Saturday-Saturday: 24Hr, 6 Exchanges, 2L, 2.5% and UF 1.5 L Saturday-Saturday: 12Hr, 6 Exchanges, 2L, 2.5% & 4.25% and UF 2.5 L Saturday-Saturday: 12Hr, 6 Exchanges, 2L, 2.5% and UF 1L Saturday-Saturday: 12Hr, 6 Exchanges, 2L fill, 2.5% alternating with 4.25% and UF 1,800 cc Today's PD regimen: 12Hr, 6 Exchanges, 2L fill, 2.5% alternating with 4.25% Active Medications Albuterol/Ipratropium Amiodarone Aspirin Metoprolol Morphine Sulfate Mupirocin Pantoprazole Trazodone Objective: .Vital Signs: Temp Pulse Resp BP Pulse Ox 97.5 F 71 24 122/64 98 07/01/19 07:18 07/01/19 09:00 07/01/19 09:00 07/01/19 09:00 07/01/19 09:00 .Heart: AFib No murmur No LE Edema .Lungs: Occasional crackles .Extremities: No LE edema Laboratory Reviewed and pertinent are: ABG pH 7.41 (7.35-7.45) 06/26/19 23:55 ABG HCO3 22.9 mmol/L (19-31) 06/26/19 23:55 Sodium 135 mmol/L (135-145) 07/01/19 04:04 Potassium 3.2 mmol/L (3.5-5.0) L 07/01/19 04:04 BUN 53 mg/dL (6-24) H 07/01/19 04:04 Creatinine 10.04 mg/dL (0.67-1.17) H 07/01/19 04:04 Calcium 8.3 mg/dL (8.6-10.3) L 07/01/19 04:04 Magnesium 2.2 mg/dL (1.9-2.7) 06/30/19 06:07 AST 93 U/L (13-39) H 06/29/19 05:45 ALT 91 U/L (7-52) H 06/29/19 05:45 Triglycerides 101 mg/dL 06/28/19 04:26 Cholesterol 89 mg/dL 06/28/19 04:26 LDL Cholesterol 39 mg/dL 06/28/19 04:26 Assessment and Plan: ESRD on PD. PD prescription as above. UF goal 2 L/d I will call his family about advanced directives with regard to [facility] dialysis, vs. Hospice care. If if they all agree on continuing dialysis, I plan to switch him to In-Center HD. Keep K >4.0 BP acceptable, but fluctuates. He was informed about lab/radiology results & prognosis. All questions were answered. He was made part of the treatment plan. Case discussed with ICU team
--- NOTE | 2019-07-01 10:49 | PN ---
Date of Service: 07/01/19 Critical Care Services: Had an uneventful evening. Was up from bed yesterday with Lazara lift, and is currently up in a chair. No apparent GI bleeding overnight. Vital Signs: Temp Pulse Resp BP SpO2 FiO2 97.5 F 70 19 71/43 99 100 Physical Exam: Gen: Somnolent but arousable HEENT: Difficulty closing left eye. Lungs: No adventitious sounds Cardiac: Reg rhythm Abdomen: peritoneal dialysis catheters in place. Extremities: Left-sided weakness (arm>leg) Fluid Balance (Past 24 Hours): 06/29/19 06/30/19 06:59 06:59 Intake Total 2132 1882 Output Total 1210 75 Balance 922 1807 Weight 173 lb 4.8 oz 175 lb 12.8 oz Intake: IV Fluids 178 116 NS (0.9%) 178 116 IVPB 526 55 ABX - AZITHROMYCIN 306 KCl 220 Mag 55 Medicated IV 918 1166 CC - Amiodarone 522 CC - Phenylephrine/ 348 56 Neosynephrine GEN - Pantoprazole/ 570 588 Protonix Oral 510 545 Output: Urine 0 75 Other 1210 Other: Date of Last Bowel Movement # Bowel Movements Estimated Stool Amount Other Amount Description Peritoneal Dialysis Labs: Laboratory Results - last 24 hr 06/30/19 06/30/19 07/01/19 16:20 16:20 04:04 WBC 11.3 H 9.2 RBC 2.69 L 2.62 L Hgb 8.1 L 8.3 L Hct 25 L 24 L MCV 91 91 MCH 30 32 H MCHC 33 35 RDW 16 H 17 H Plt Count 279 277 MPV 7.9 8.5 Sodium 134 L Potassium 3.4 L Chloride 96 L Carbon Dioxide 25 Anion Gap 13 H BUN 58 H Creatinine 10.63 H Est GFR ( Amer) 5.6 Est GFR (Non-Af Amer) 4.7 BUN/Creatinine Ratio 5.5 L Glucose 174 H Calcium 8.2 L 07/01/19 04:04 WBC RBC Hgb Hct MCV MCH MCHC RDW Plt Count MPV Sodium 135 Potassium 3.2 L Chloride 96 L Carbon Dioxide 25 Anion Gap 14 H BUN 53 H Creatinine 10.04 H Est GFR ( Amer) 6.0 Est GFR (Non-Af Amer) 5.0 BUN/Creatinine Ratio 5.3 L Glucose 117 H Calcium 8.3 L Studies: Pleural fluid cytology - negative for malignant cells. Nutrition: Oral diet Impression: Major problems include: 1. Upper GI Bleeding - due to PUD plus there may be an infiltrative process in the gastric antral mucosa (amyloid vs neoplasm) - was cauterized yesterday and no evidence of bleeding since then. 2. Stroke - Right posterior circulation (patient is left-handed) - consequences include visual field deficits, left-sided neglect, and left-sided weakness. 3. Atrial fibrillation - on amiodarone (200 BID) and metoprolol (25 BID) 4. Right-sided pleural effusion - unrelated to peritoneal dialysis - ? etiology 5. NAYELI - on peritoneal dialysis Plan: 1. Will transfer out of ICU today for continued rehab related to stroke. 2. Monitor for evidence of GI bleeding. 3. Await results of punch biopsies of gastric antrum 4. Peritoneal dialysis to be continued. The patient had been followed by Dr. Mitchell as an outpatient, and she will continue to follow Critical Care Time: 40 minutes
[2019-07-01] MEDS: Metoprolol Tartrate TAB* 25 MG PO SCH ×2 (10:53→22:10)
[2019-07-01] MEDS ORDERED: KCL 20 MEQ/100 ML IVPREMIX* 20 MEQ/100 ML BAG IV SCH (11:00)
[2019-07-01] MEDS ORDERED: Potassium Chloride* LIQUID 20 MEQ/15 ML UDC PO ONE (11:30)
[2019-07-01 14:12] LABS: BUN/Creatinine Ratio 5.2 (8-20); Calcium 8.5 mg/dL (8.6-10.3); EGFR African American 5.7 (>60); EGFR Non-African American 4.7 (>60); Potassium 3.5 mmol/L (3.5-5.0)
--- NOTE | 2019-07-01 19:20 | PN ---
Subjective Date of Service: 07/01/19 - CC: s/p CVA Interval History: Pt sleeping in ICU, in a chair, appears comfortable. Not easily aroused, did not try hard to awaken. Medications Active Medications: Albuterol/Ipratropium (Duoneb (Albuterol 2.5 Mg/Ipratropium 0.5 Mg)) 1 neb INH [id number] AWAKE PRN PRN Reason: sob/wheexing Amiodarone HCl (Cordarone Tab*) [address] [facility] Last Admin: 07/01/19 08:37 Dose: 200 mg Artificial Tears (Lacrilube Oint*) 1 applic LEFT EYE Q4H PRN PRN Reason: DRY EYE Aspirin (Aspirin Ec Tab*) [address] [facility] Last Admin: 07/01/19 08:37 Dose: 81 mg Metoprolol Tartrate (Lopressor Iv*) 5 mg IV Q6H PRN PRN Reason: BLOOD PRESSURE Last Admin: 06/29/19 08:19 Dose: 5 mg Metoprolol Tartrate (Lopressor Tab*) [address] [facility] Last Admin: 07/01/19 10:53 Dose: Not Given Morphine Sulfate (Morphine Inj (Syringe))*) 1 mg IV Q4H PRN PRN Reason: PAIN - SEVERE Last Admin: 06/27/19 03:45 Dose: 1 mg Mupirocin (Bactroban 2 % Oint*) [address] [facility] Last Admin: 07/01/19 08:46 Dose: Not Given Pantoprazole Sodium (Protonix Tab*) [address] [facility] Last Admin: 07/01/19 08:37 Dose: 40 mg Trazodone HCl (Desyrel Tab*) 50 mg PO BEDTIME PRN PRN Reason: SLEEP Last Admin: 06/30/19 20:08 Dose: 50 mg HOME MEDS: Rosuvastatin (NF) [Crestor (NF)] 5 mg PO BEDTIME 09/10/18 [History Confirmed 07/26] dilTIAZem HCl [Cartia Xt] 180 mg PO QAM 10/31/18 [History Confirmed 06/10/19] Metoprolol Succinate XL TAB* [Toprol XL TAB*] 50 mg PO DAILY 06/08/19 [History Confirmed 06/10/19] Pantoprazole TAB * [Protonix TAB*] 40 mg PO BID #60 tab 06/14/19 [Rx] Objective Vital Signs: Temp Pulse Resp BP Pulse Ox 97.6 F 65 21 102/48 99 07/01/19 15:37 07/01/19 15:37 07/01/19 15:37 07/01/19 15:37 07/01/19 15:37 Oxygen Devices in Use Now: Nasal Cannula, High Flow Nasal Cannula Appearance: frail, ill appearing male patient. Lying on left side in chair Ears/Nose/Mouth/Throat: NL Teeth, Lips, Gums Neck: Trachea Midline, No Thyroid Enlargement, Masses Respiratory: - - diminished in R>L base Cardiovascular: RRR - late peaking SM USB, - Abdominal: NL Sounds; No Tenderness; No Distention Extremities: No Edema Skin: No Rash or Ulcers Neurological: - - unable to perform, pt sleeping Lines/Tubes/Other Access: Clean, Dry and Intact Peripheral IV Laboratory Results: 07/01/19 04:04 07/01/19 13:30 INR (Anticoag Therapy) 1.09 (0.82-1.09) 06/28/19 05:08 APTT 42.9 seconds (26.0-38.0) H 06/28/19 05:08 Total Bilirubin 0.50 mg/dL (0.2-1.0) 06/29/19 05:45 AST 93 U/L (13-39) H 06/29/19 05:45 ALT 91 U/L (7-52) H 06/29/19 05:45 Alkaline Phosphatase 123 U/L (34-104) H 06/29/19 05:45 B-Natriuretic Peptide 1093 pg/mL (<=100) H 06/25/19 23:38 Total Protein 6.3 g/dL (6.4-8.9) L 06/29/19 05:45 Albumin 2.4 g/dL (3.2-5.2) L 06/29/19 05:45 Globulin 3.9 g/dL (2-4) 06/29/19 05:45 Albumin/Globulin Ratio 0.6 (1-3) L 06/29/19 05:45 Triglycerides 101 mg/dL 06/28/19 04:26 Cholesterol 89 mg/dL 06/28/19 04:26 LDL Cholesterol 39 mg/dL 06/28/19 04:26 HDL Cholesterol 29.8 mg/dL 06/28/19 04:26 06/25/19 06/26/19 06/26/19 23:38 02:52 06:14 Troponin I 1.28 H* 1.89 H* 2.75 H* 06/26/19 06/26/19 06/26/19 08:50 12:25 15:30 Troponin I 4.68 H* 6.49 H* 8.28 H* 06/26/19 06/27/19 06/27/19 21:34 05:01 09:17 Troponin I 9.96 H* 11.30 H* 10.05 H* Diagnostic Imaging: *[facility]* [place] [address] Fax #: [phone] Limited Transthoracic Echocardiogram Patient: Janeth Vegas : 1935 Study Date: 06/29/2019 Age: 83 Gender: M HR: 138 bpm Height: 72 in /182.9 cm BSA: 2.02 m^2 Weight: 176 lb /80 kg BMI: 23.9 kg/m^2 *[employer] Instrument Repairer: Lee Ann Real *Referring Physician: Alexander Price *Reading Physician: Yang Chiu MD Indications: CVA. Abnormal EKG. History: Atrial flutter. Risk factors: Hypertension. Dyslipidemia. Conclusions Summary: - Left ventricle: Systolic function is normal. The estimated ejection fraction is 55-60%. Systolic function is unchanged from the previous study. - Atrial septum: No defect or patent foramen ovale is identified. Bubble study was negative Study data: Transthoracic echocardiogram, limited study. Procedure: Transthoracic echocardiography was performed. Image quality was suboptimal. A bubble study was performed. Location: ICU Patient status: Inpatient. Patient room number: 4. Findings Left ventricle: Systolic function is normal. The estimated This report is only to be considered final once signed by the Provider(s) as displayed in the "<Electronically Signed by >" field (s). Absence of a signature indicates the report is in a draft status and still needs to be finalized. In the event this document was created by someone other than the signing Provider, the individual initiating the document will be listed in the "Entered by:" or "Dictated by:" medrano. Patient Name: JANETH VEGAS Medical Record#: [id number] Ordering Physician: Alexander Willoughby MD Acct.#: [id number] : 1935 Age: 83 Sex: M Location: INTENSIVE CARE UNIT Exam Date: 06/29/19 0600 ADM Status: ADM IN Order Information: CHEST AP/PORT Accession Number: [id number] CPT: 10271 HISTORY: hypoxia COMPARISONS: July 04, 2019 VIEWS: 1: frontal AP view of the chest at 5:45 AM FINDINGS: LINES AND TUBES: None. CARDIOMEDIASTINAL SILHOUETTE: The cardiomediastinal silhouette is normal for portable technique. PLEURA: There is a small to moderate right pleural effusion with a small left pleural effusion. This is similar to the previous examination. LUNG PARENCHYMA: There is a diffuse reticular pattern with indistinct pulmonary vessels. There is patchy alveolar opacification lung bases bilaterally. There is been improved aeration of the perihilar left lung. ABDOMEN: The upper abdomen is clear. There is no subphrenic gas. BONES AND SOFT TISSUES: No bone or soft tissue abnormalities are noted. IMPRESSION: 1. BIBASILAR ATELECTASIS VERSUS CONSOLIDATION WITH IMPROVED AERATION OF THE LEFT PERIHILAR LUNG. 2. PULMONARY INTERSTITIAL EDEMA. 3. BILATERAL PLEURAL EFFUSIONS. <Electronically signed by Iban Cornelius MD in OV> 06/29/19820 Dictated By: Iban Cornelius MD Dictated Date/Time: 06/29/19819 Transcribed Date/Time: 06/29/19819 Copy to: *[facility]* [place] [address] Fax #: [phone] Transthoracic Echocardiogram Patient: Janeth Vegas : 1935 Study Date: 06/26/2019 Conclusions Summary: - Left ventricle: Systolic function is at the lower limits of normal. The estimated ejection fraction is 50-55%. Hypokinesis of the mid-apicalanteroseptal myocardium. - Left atrium: The atrium is moderately dilated. - Mitral valve: There is moderate regurgitation. - Aortic valve: The findings are consistent with moderate stenosis. There is mild regurgitation. - Tricuspid valve: There is mild regurgitation. - Pulmonary arteries: Systolic pressure is mildly increased, estimated to be 39 mm Hg. Pulmonary artery pressure may be underestimated - C/t 10/01/2018, left ventricle ejection fraction was reported then 55-60% and no WMA. is stable. Mitral regurgitation was mild then. This report is only to be considered final once signed by the Provider(s) as displayed in the "<Electronically Signed by >" field (s). Absence of a signature indicates the report is in a draft status and still needs to be finalized. In the event this document was created by someone other than the signing Provider, the individual initiating the document will be listed in the "Entered by:" or "Dictated by:" medrano. EKG Data: Telemetry: NSR Assessment/Plan 83 yo male admitted with CVA, neglect L side, hx PAF, was on coumadin but no longer a candidate due to GI bleed. PMHx of tachy/cydney, HTN, ESRD on PD, hx PE (pulmonary embolism) and hx pericardial effusion, elevated ESR in past. #1 History PAF with RVR; -Now in NSR on PO Amiodarone -Not on OAC due to recent GI bleed 06/11/19. #2 h/o Moderate ; peak 42, mean 25. Could be contributing to GI bleed, and AVM 's a possibility. #3 S/P NSTEMI; felt to be demand based. Hgb 5.4 upon presentation. Troponin peaked on 11.3 on 06/27/19. -Echo revealed LVEF 50-55% with mid apical anteroseptal hypokinesis. -He is on ASA, bblocker therapy. -Was on Crestor out pt, not on now, unless contraindicated for some reason I would resume in or out patient. #4 s/p GI bleed; had initial upper GI bleed 06/11/19. Was taken off of Coumadin and had recurrent Melena. Received PRBCs this admit ( Hgb 5.4). Currently, Hgb 8.4. GI following. On PPI therapy. Awaiting clearance for OAC if a possibility #5 s/p Acute embolic CVA; In setting of PAF. Neuro following. Echo with bubble study did not reveal PFO. #6 ESRD on peritoneal dialysis. - pleural effusions. Hospitalists and nephrology following. High risk patient with
[2019-07-01] MEDS: traZODone TAB* 50 MG TAB PO PRN (22:10)
[2019-07-02 06:37] LABS: Hematocrit 23 % (42-52); Mean Corpuscular HGB Conc 34 g/dL (31-36); Mean Corpuscular Hemoglobin 31 pg (27-31); Mean Corpuscular Volume 90 fL (80-94); Platelet Count 260 10^3/uL (150-450); Red Cell Distribution Width 17 % (10-15); White Blood Count 10.3 10^3/uL (3.5-10.8)
[2019-07-02] MEDS: Aspirin EC TAB* 81 MG TAB.EC PO SCH (09:57)
[2019-07-02] MEDS: Amiodarone TAB* 200 MG PO SCH ×2 (09:57→20:43)
[2019-07-02] MEDS: Pantoprazole TAB * 40 MG TAB PO SCH ×2 (09:57→20:43)
[2019-07-02] MEDS: Metoprolol Tartrate TAB* 25 MG PO SCH ×2 (09:57→21:25)
--- NOTE | 2019-07-02 10:56 | PN ---
Subjective Date of Service: 07/02/19 Interval History: Afebrile, no acute events overnight some abdominal cramps last night but per patient peritoneal dialysate checked and not concerning for infection. Deferring to Daughter and Son-In-Law for decision about hospice vs re-initiate HD (they have now decided to pursue HD and rehab). CXR this AM with R>L pleural effusion. Objective Active Medications: Albuterol/Ipratropium (Duoneb (Albuterol 2.5 Mg/Ipratropium 0.5 Mg)) 1 neb INH [id number] AWAKE PRN PRN Reason: sob/wheexing Amiodarone HCl (Cordarone Tab*) 200 mg PO BID [facility] Last Admin: 07/02/19 09:57 Dose: 200 mg Artificial Tears (Lacrilube Oint*) 1 applic LEFT EYE Q4H PRN PRN Reason: DRY EYE Aspirin (Aspirin Ec Tab*) 81 mg PO DAILY [facility] Last Admin: 07/02/19 09:57 Dose: 81 mg Metoprolol Tartrate (Lopressor Iv*) 5 mg IV Q6H PRN PRN Reason: BLOOD PRESSURE Last Admin: 06/29/19 08:19 Dose: 5 mg Metoprolol Tartrate (Lopressor Tab*) 25 mg PO Q12H [facility] Last Admin: 07/02/19 09:57 Dose: 25 mg Morphine Sulfate (Morphine Inj (Syringe))*) 1 mg IV Q4H PRN PRN Reason: PAIN - SEVERE Last Admin: 06/27/19 03:45 Dose: 1 mg Mupirocin (Bactroban 2 % Oint*) 1 applic TOPICAL DAILY [facility] Last Admin: 07/01/19 08:46 Dose: Not Given Pantoprazole Sodium (Protonix Tab*) 40 mg PO BID [facility] Last Admin: 07/02/19 09:57 Dose: 40 mg Trazodone HCl (Desyrel Tab*) 50 mg PO BEDTIME PRN PRN Reason: SLEEP Last Admin: 07/01/19 22:10 Dose: 50 mg Vital Signs - 8 hr 07/02/19 03:52 Temperature 98.0 F Pulse Rate 76 Respiratory 18 Rate Blood Pressure 100/55 (mmHg) O2 Sat by Pulse 98 Oximetry Oxygen Devices in Use Now: Nasal Cannula, High Flow Nasal Cannula Appearance: NAD Ears/Nose/Mouth/Throat: NL Teeth, Lips, Gums Neck: NL Appearance and Movements; NL JVP, Trachea Midline Respiratory: Symmetrical Chest Expansion and Respiratory Effort, Clear to Auscultation Cardiovascular: NL Sounds; No Murmurs; No JVD, RRR Extremities: No Edema Skin: No Rash or Ulcers Neurological: Alert and Oriented x 3, - - 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 left sided neglect and left homonynomous hemianopia. sensation intact. CN II-XII intact Nutrition: Taking PO's Result Diagrams: 07/02/19 06:24 07/02/19 15:28 Additional Lab and Data: Laboratory Results - last 24 hr 07/02/19 06:24 WBC 10.3 RBC 2.60 L Hgb 8.0 L Hct 23 L MCV 90 MCH 31 MCHC 34 RDW 17 H Plt Count 260 MPV 8.0 ESR > 120 H Microbiology and Other Data: Microbiology 06/27/19 09:17 Blood Line Aerobic Blood Culture - Final No Growth Day 5 06/27/19 09:17 Blood Line Anaerobic Blood Culture - Final No Growth Day 5 06/26/19 11:48 Pleural Fluid Gram Stain - Final 06/26/19 11:48 Pleural Fluid Body Fluid Culture - Final No Growth Day 4 06/26/19 10:55 Nasal Nasal Screen MRSA (PCR) - Final Mrsa Not Detected 06/26/19 05:14 Nasal Nasal Screen MRSA (PCR) - Final Mrsa Not Detected 06/26/19 00:14 Stool Stool Occult Blood (YUAN) - Final Assess/Plan/Problems-Billing Assessment: 83 yo male PMH ESRD on peritoneal dialysis since December, HTN, pAfib, travel provoked PE, moderare aortic stenosis, recent GIB (antral nodules) with severe anemia (now off a/c), p/w hgb 5. Course complicated by hypoxic respiratory failure (s/p 1.8L thoracentesis), NSTEMI (trop peaked &&&)acute CVA with left sided neglect, homonymous hemianopsia, LUE > LLE weakness. s/p EGD with negative biopsy. Had lived alone, will need tunneled dialysis cath, an intermittent HD chair and SNF. - Patient Problems (1) Acute blood loss anemia Current Visit: No Status: Acute Code(s): D62 - ACUTE POSTHEMORRHAGIC ANEMIA SNOMED Code(s): 089352642 Comment: - UGIB - appreciate GI recs. - he is now s/p 3 EGDs in month of June. Oozing antral nodularity of unknown etiology. Also had some duodenal ulcers 06/10. s/p endo clips of antral nodules on 06/10 and argon therapy on 06/29. Staining negative for amyloid and h pylori now negative x2. Poor anticoagulation candidate per GI though also high risk for recurrant stroke. -received 3 U PRBCs during this hospitalization (and 3 more last admission + 1 FFP) - PPI BID - avoid NSAIDS. (2) CVA (cerebral vascular accident) Current Visit: Yes Status: Acute Code(s): I63.9 - CEREBRAL INFARCTION, UNSPECIFIED SNOMED Code(s): 410145678 Comment: Appreciate Neurology recs MRI Brain noncontrast attempted but radiology reports they were concerned about potential metal in his eye. Study aborted. Consider repeat CTH. unfortunately very high risk for a/c per GI. CHADSVASC is also very high at 6 (age 2 , htn, cva 2, vascular disease with recent NSTEMI) Continue aspirin for now. (3) Atrial flutter Current Visit: No Status: Acute Code(s): I48.92 - UNSPECIFIED ATRIAL FLUTTER SNOMED Code(s): 0932870 Comment: - has been held since early June in setting of recurrent GIB - appreciate cardiology recs. - continue metoprolol 25 mg po BID and amiodarone 200mg BID. - replete K>4, Mg >2 prn. - continue telemetry. (4) ESRD (end stage renal disease) Current Visit: No Status: Acute Code(s): N18.6 - END STAGE RENAL DISEASE SNOMED Code(s): 47834992 Comment: -on PD since dec 2018 -appreciate nephrology recs. Dr. Perez spoke with daughter Geovanna and they have decided to pursue reinitiation of intermittent HD. Plan for tunneled dialysis cath early next week before a potential discharge to a SNF for further rehab. Needs a HD chair. His severe left sided weakness and neglect make him currently unable to handle PD by himself. he is status post kidney biopsy with Dr. 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 Reported etiology was HTN. Of note he has had ESR above 110 since 2014. Given unclear etiology of his antral nodules will repeat ESR, and evaluate for vasculititis/ CTD: MPO, Proteinase-3, WALTER Needs repeat hepatitis screen per Case management. (5) HTN (hypertension) Current Visit: No Status: Acute Code(s): I10 - ESSENTIAL (PRIMARY) HYPERTENSION SNOMED Code(s): 99789562 Comment: -continue metoprolol -SBP 90-130s. (6) History of pulmonary embolism Current Visit: No Status: Acute Code(s): Z86.711 - PERSONAL HISTORY OF PULMONARY EMBOLISM SNOMED Code(s): 968471292 Comment: -a/c held as above. -history of one travel provoked PE in 2013. (7) Hyperlipidemia Current Visit: No Status: Acute Code(s): E78.5 - HYPERLIPIDEMIA, UNSPECIFIED SNOMED Code(s): 62520623 Comment: -continue statin (8) NSTEMI (non-ST elevated myocardial infarction) Current Visit: Yes Status: Acute Code(s): I21.4 - NON-ST ELEVATION (NSTEMI) MYOCARDIAL INFARCTION SNOMED Code(s): 20750897 Comment: continue aspirin, statin, BB. ECHO 06/28: EF 50-55% moderate (9) Acute respiratory failure with hypoxia Current Visit: Yes Status: Acute Code(s): J96.01 - ACUTE RESPIRATORY FAILURE WITH HYPOXIA SNOMED Code(s): 52134618 Comment: in setting of right> left pleural effusion and anemia. wean O2 as tolerated. CXR on 07/01 with similar effusions. Plan is to switch to ID instead of PD to assist with volume control. He is s/p therapeutic thora on 06/25. s/p 3 days of CFTX and azithromycin from 06/25-06/27 (also had leukocytosis, improved) (10) Pleural effusion Current Visit: Yes Status: Acute Code(s): J90 - PLEURAL EFFUSION, NOT ELSEWHERE CLASSIFIED SNOMED Code(s): 49464719 Comment: incompletely evaluated as I don't have a serum LDH but exudative per elevated pleural fluid LDH above 2/3 ULN. Cytology, gram stain and culture negative add TSH, last many years ago. (11) Full code status Current Visit: No Status: Acute Code(s): Z78.9 - OTHER SPECIFIED HEALTH STATUS SNOMED Code(s): 847573304 (12) DVT prophylaxis Current Visit: No Status: Acute Code(s): Z29.9 - ENCOUNTER FOR PROPHYLACTIC MEASURES, UNSPECIFIED SNOMED Code(s): 042677770 Comment: -SCDs -chemoprophylaxis contraindicated in setting of anemia
[2019-07-02 12:10] LABS: Erythrocyte Sed Rate > 120 mm/Hr (0-19)
--- NOTE | 2019-07-02 12:49 | PN ---
Progress Note - Progress Note Date of Service: 07/02/19 Note: GI Follow Up Note Patient seen and examined. No black or blood in stool. Tired. Appetite poor but liquids are tasting ok. VS: 98/42, P-76, T- 97.7, R-20 99% RA Gen: arousable, alert. nad, chronically ill appearing HEENT: sclera anicteric, conjunctiva pink CVS: RRR s1s2 Resp: diminished at base Abd: soft, nt, nd, bs+ Lab: 8.10->8.3->8.0 bx: chronic inflammation, no HP or Amyloid Impression Acute on chronic blood loss anemia Antral nodularity- probable source. bx negative for malignancy x2 episodes CVA Afib Rec: Hgb stable on aspirin, PPI and after APC ablation. Ablated as much as I could with good effect, unclear etiology of nodularity, no HP, amyloid or malignancy. Due to the nature of this lesion he will likely chronically ooze. Not a good candidate for anticoagulation, if determined absolutely necessary would optimize IV iron and expect bleeding to occur. Juan Block 07/02/19 [id number]
--- NOTE | 2019-07-02 12:53 | PN ---
Progress Note - Progress Note Date of Service: 07/02/19 Note: Inpatient Nephrology FU Note: Performed by Dr. Beka Perez, [facility] Nephrology 07/02/2019 83 YO WM ESRD on PD. Failure to Thrive. Recurrent GI Bleeding Severe Anemia 2/2 nodular gastric antrum. At high risk for recurrent Stroke s/p Rt-hemisphere embolic CVA, with Lt Hemiparesis & neglect. AF I spoke to his daughter, Geovanna, about Hospice care vs. in-center HD, as he can' t do PD in view of his CVA She's going with In-center HD, for now. Saturday-: 12Hr, 6 Exchanges, 2L fill, 2.5% alternating with 4.25% and UF 1,800 cc Today's PD regimen: 12Hr, 6 Exchanges, 2L fill, 2.5% Active Medications Albuterol/Ipratropium Amiodarone Aspirin Metoprolol Morphine Mupirocin Pantoprazole Trazodone Objective: .Vital Signs: Vital Signs Temp 97.7 F 07/02/19 08:00 Pulse 76 07/02/19 08:00 Resp 20 07/02/19 08:00 BP 98/42 07/02/19 08:00 Pulse Ox 99 07/02/19 08:00 Intake & Output 07/01/19 07/02/19 07/02/19 18:59 06:59 18:59 Intake Total 597 Balance 597 Intake: Oral 597 Other: Estimated Stool Amount Small .Heart: AFib No murmur No LE Edema .Lungs: Occasional crackles .Extremities: No LE edema Laboratory Reviewed and pertinent are: ABG pH 7.41 (7.35-7.45) 06/26/19 23:55 ABG HCO3 22.9 mmol/L (19-31) 06/26/19 23:55 Sodium 135 mmol/L (135-145) 07/01/19 13:30 Potassium 3.5 mmol/L (3.5-5.0) 07/01/19 13:30 BUN 55 mg/dL (6-24) H 07/01/19 13:30 Creatinine 10.56 mg/dL (0.67-1.17) H 07/01/19 13:30 Calcium 8.5 mg/dL (8.6-10.3) L 07/01/19 13:30 Magnesium 2.2 mg/dL (1.9-2.7) 06/30/19 06:07 AST 93 U/L (13-39) H 06/29/19 05:45 ALT 91 U/L (7-52) H 06/29/19 05:45 Triglycerides 101 mg/dL 06/28/19 04:26 Cholesterol 89 mg/dL 06/28/19 04:26 LDL Cholesterol 39 mg/dL 06/28/19 04:26 Assessment and Plan: ESRD on PD. PD prescription as above. UF goal 2 L/d Family chose In-Center HD. I'll set him up for TDC placement next week. I'll get him a chair in the outpatient HD unit BP acceptable, but fluctuates. He was informed about lab/radiology results & prognosis. All questions were answered. He was made part of the treatment plan. Case discussed with Dr. Guevara.
[2019-07-02 15:54] LABS: Anion Gap 11 mmol/L (2-11); BUN/Creatinine Ratio 5.6 (8-20); Blood Urea Nitrogen 63 mg/dL (6-24); CO2 Carbon Dioxide 28 mmol/L (22-32); Calcium 8.4 mg/dL (8.6-10.3); Chloride 98 mmol/L (101-111); EGFR African American 5.3 (>60); EGFR Non-African American 4.4 (>60); Glucose 87 mg/dL (70-100); Sodium 137 mmol/L (135-145)
[2019-07-02 16:03] LABS: Total Iron Binding Capacity 130 mcg/dL (250-450); Transferrin 93 mg/dL (203-362)
[2019-07-02 16:08] LABS: % Iron Saturation 15 % (15-55); Iron < 20 ug/dL (50-212)
[2019-07-02 16:38] LABS: Ferritin > 1500.0 ng/mL (24-336)
[2019-07-02] MEDS: Mupirocin 2% OINT* TUBE TOPICAL SCH (16:48)
[2019-07-02] MEDS: traZODone TAB* 50 MG TAB PO PRN (20:55)
[2019-07-03 05:48] LABS: Hematocrit 26 % (42-52); Hemoglobin 8.4 g/dL (14.0-18.0); Mean Corpuscular HGB Conc 33 g/dL (31-36); Mean Corpuscular Hemoglobin 30 pg (27-31); Mean Corpuscular Volume 92 fL (80-94); Mean Platelet Volume 8.2 fL (7.4-10.4); Platelet Count 269 10^3/uL (150-450); Red Blood Count 2.79 10^6 /uL (4.18-5.48); Red Cell Distribution Width 17 % (10-15)
[2019-07-03 06:32] LABS: TSH (Thyroid Stimulating Horm) 3.55 mcIU/mL (0.34-5.60)
[2019-07-03 07:03] LABS: Hepatitis C Antibody Negative (Negative)
[2019-07-03] MEDS: Pantoprazole TAB * 40 MG TAB PO SCH ×2 (08:02→20:30)
[2019-07-03] MEDS: Amiodarone TAB* 200 MG PO SCH ×2 (08:02→20:29)
[2019-07-03] MEDS: Aspirin EC TAB* 81 MG TAB.EC PO SCH (08:02)
[2019-07-03] MEDS: Metoprolol Tartrate TAB* 25 MG PO SCH ×2 (10:28→23:43)
--- NOTE | 2019-07-03 10:50 | PN ---
Progress Note - Progress Note Date of Service: 07/03/19 Note: Inpatient Nephrology FU Note: Performed by Dr. Beka Perez, [facility] Nephrology 07/03/2019 83 YO WM ESRD on PD. Failure to Thrive. Recurrent GI Bleeding Severe Anemia 2/2 nodular gastric antrum. At high risk for recurrent Stroke s/p Rt-hemisphere embolic CVA, with Lt Hemiparesis & neglect. AF Him and his daughter, Geovanna, refused Hospice & chose in-center HD He's accepted in our outpatient unit, but will need Tunneled HD catheter placement, that I'll do next week. He will be able to go home -from Nephrology perspective- next Saturday, as he's scheduled for TDC placement on Saturday & to start HD next . PD regimen: -Saturday: 12Hr, 6 Exchanges, 2,000 cc fill of 2.5% Dextrose and UF 1,700 cc Today's PD regimen: Same: 12Hr, 6 Exchanges, 2,000 cc fill of 2.5% Active Medications: Albuterol/Ipratropium Amiodarone Aspirin Metoprolol Mupirocin Pantoprazole Trazodone Objective: .Vital Signs: Vital Signs Temp 97.9 F 07/03/19 08:00 Pulse 75 07/03/19 08:00 Resp 16 07/03/19 08:00 BP 118/58 07/03/19 08:00 Pulse Ox 96 07/03/19 08:00 Intake & Output 07/02/19 07/03/19 07/03/19 18:59 06:59 18:59 Intake Total 240 Balance 240 Weight 80.331 kg Intake: Oral 240 .Heart: AFib No murmur No LE Edema .Lungs: Occasional crackles .Extremities: No LE edema .Neuro: Rt Hemiparesis Laboratory Reviewed and pertinent are: Sodium 137 mmol/L (135-145) 07/02/19 15:28 Potassium 4.0 mmol/L (3.5-5.0) 07/02/19 15:28 BUN 63 mg/dL (6-24) H 07/02/19 15:28 Creatinine 11.26 mg/dL (0.67-1.17) H 07/02/19 15:28 Calcium 8.4 mg/dL (8.6-10.3) L 07/02/19 15:28 Magnesium 2.0 mg/dL (1.9-2.7) 07/03/19 05:26 Assessment and Plan: ESRD on PD. PD prescription as above, he's achieving UF goal of 2 L/d Chose In-Center HD. TDC placement next Saturday. Start outpatient HD on , TTS BP Ok He was informed about lab/radiology results & prognosis. All questions were answered. He was made part of the treatment plan.
--- NOTE | 2019-07-03 13:06 | PN ---
Subjective Date of Service: 07/03/19 Interval History: Patient has no new complaints. He is eating lunch. He is asking about location, severity of stroke. He has hemianopsia and LT- sided weakness Currently receiving peritoneal dialysis, but waiting for hemodialysis setup. Family History: Unchanged from Admission Social History: Unchanged from Admission Past Medical History: Unchanged from Admission Objective Active Medications: Albuterol/Ipratropium (Duoneb (Albuterol 2.5 Mg/Ipratropium 0.5 Mg)) 1 neb INH [id number] AWAKE PRN PRN Reason: sob/wheexing Amiodarone HCl (Cordarone Tab*) 200 mg PO BID [facility] Last Admin: 07/03/19 08:02 Dose: 200 mg Artificial Tears (Lacrilube Oint*) 1 applic LEFT EYE Q4H PRN PRN Reason: DRY EYE Aspirin (Aspirin Ec Tab*) 81 mg PO DAILY [facility] Last Admin: 07/03/19 08:02 Dose: 81 mg Metoprolol Tartrate (Lopressor Iv*) 5 mg IV Q6H PRN PRN Reason: BLOOD PRESSURE Last Admin: 06/29/19 08:19 Dose: 5 mg Metoprolol Tartrate (Lopressor Tab*) 25 mg PO Q12H [facility] Last Admin: 07/03/19 10:28 Dose: 25 mg Mupirocin (Bactroban 2 % Oint*) 1 applic TOPICAL DAILY [facility] Last Admin: 07/02/19 16:48 Dose: Not Given Pantoprazole Sodium (Protonix Tab*) 40 mg PO BID [facility] Last Admin: 07/03/19 08:02 Dose: 40 mg Trazodone HCl (Desyrel Tab*) 50 mg PO BEDTIME PRN PRN Reason: SLEEP Last Admin: 07/02/19 20:55 Dose: 50 mg Vital Signs - 8 hr 07/03/19 07/03/19 07/03/19 08:00 12:00 12:18 Temperature 36.6 C 36.2 C Pulse Rate 75 76 Respiratory 16 16 Rate Blood Pressure 118/58 80/45 82/52 (mmHg) O2 Sat by Pulse 96 Oximetry 07/03/19 12:46 Temperature Pulse Rate Respiratory Rate Blood Pressure 110/56 (mmHg) O2 Sat by Pulse Oximetry Oxygen Devices in Use Now: Nasal Cannula Appearance: alert, no distress Ears/Nose/Mouth/Throat: Clear Oropharnyx Neck: No Thyroid Enlargement, Masses Respiratory: Symmetrical Chest Expansion and Respiratory Effort, Clear to Auscultation Cardiovascular: NL Sounds; No Murmurs; No JVD, RRR Abdominal: No Hepatosplenomegaly, - - distended, soft, PD cath present Neurological: - - alert, oriented to self, place Lines/Tubes/Other Access: Clean, Dry and Intact Peripheral IV Nutrition: Taking PO's Result Diagrams: 07/03/19 05:26 07/02/19 15:28 Additional Lab and Data: Laboratory Tests 07/02/19 07/02/19 07/03/19 06:24 15:28 05:26 ESR > 120 H Glucose 87 Calcium 8.4 L Magnesium 2.0 Iron < 20 L TIBC 130 L Transferrin 93 L TSH 3.55 Microbiology and Other Data: Microbiology 06/27/19 09:17 Blood Line Aerobic Blood Culture - Final No Growth Day 5 06/27/19 09:17 Blood Line Anaerobic Blood Culture - Final No Growth Day 5 06/26/19 11:48 Pleural Fluid Gram Stain - Final 06/26/19 11:48 Pleural Fluid Body Fluid Culture - Final No Growth Day 4 06/26/19 10:55 Nasal Nasal Screen MRSA (PCR) - Final Mrsa Not Detected 06/26/19 05:14 Nasal Nasal Screen MRSA (PCR) - Final Mrsa Not Detected 06/26/19 00:14 Stool Stool Occult Blood (YUAN) - Final Assess/Plan/Problems-Billing Assessment: 83 yo male PMH ESRD on peritoneal dialysis since December, HTN, pAfib, travel provoked PE, recent GIB (antral nodules) with severe anemia (now off a/c), p/w hgb 5. Course complicated by hypoxic respiratory failure (s/p 1.8L thoracentesis ), NSTEMI (trop peaked) and acute CVA with left sided neglect, homonymous hemianopsia, LUE > LLE weakness. s/p EGD with negative biopsy. Had lived alone, will need tunneled dialysis cath, an intermittent HD chair and SNF. - Patient Problems (1) CVA (cerebral vascular accident) Current Visit: Yes Status: Acute Priority: High Code(s): I63.9 - CEREBRAL INFARCTION, UNSPECIFIED SNOMED Code(s): 241939349 Comment: -Reviewed Neurology notes, discussed RT posterior circ stroke w/ patient -unfortunately very high risk for anticoagulation per GI. -Continue aspirin for now. (2) ESRD (end stage renal disease) Current Visit: No Status: Acute Priority: Medium Code(s): N18.6 - END STAGE RENAL DISEASE SNOMED Code(s): 20125591 Comment: -on PD since dec 2018 -Switching to HD. Plan for tunneled dialysis cath early next week before a potential discharge to a SNF for further rehab. Needs a HD chair. Due to left- sided weakness and neglect he is unable to handle PD by himself. - HepC neg, other hepatitis screen pending (3) Acute blood loss anemia Current Visit: No Status: Acute Priority: Medium Code(s): D62 - ACUTE POSTHEMORRHAGIC ANEMIA SNOMED Code(s): 597328900 Comment: - UGIB, appreciate GI recs, has had three EGDs this month - received 3 U PRBCs during this hospitalization (and 3 more last admission + 1 FFP) - PPI BID - avoid NSAIDS. - iron deficient; management per nephrology (4) Pleural effusion Current Visit: Yes Status: Acute Priority: Medium Code(s): J90 - PLEURAL EFFUSION, NOT ELSEWHERE CLASSIFIED SNOMED Code(s): 34001314 Comment: -exudative per elevated pleural fluid LDH above 2/3 ULN. -Cytology, gram stain and culture negative (5) DVT prophylaxis Current Visit: No Status: Acute Priority: Low Code(s): Z29.9 - ENCOUNTER FOR PROPHYLACTIC MEASURES, UNSPECIFIED SNOMED Code(s): 407272243 Comment: -SCDs -chemoprophylaxis contraindicated in setting of anemia Status and Disposition: inpatient, awaiting dialysis cath, dialysis chair, BETH
[2019-07-03] MEDS: Mupirocin 2% OINT* TUBE TOPICAL SCH (17:02)
[2019-07-03 17:06] LABS: BUN/Creatinine Ratio 5.2 (8-20); Calcium 8.4 mg/dL (8.6-10.3); EGFR African American 5.1 (>60); EGFR Non-African American 4.2 (>60); Potassium 3.8 mmol/L (3.5-5.0)
[2019-07-03] MEDS: traZODone TAB* 50 MG TAB PO PRN (20:29)
[2019-07-03] MEDS: Acetaminophen TAB* 325 MG PO PRN (22:19)
[2019-07-04 06:23] LABS: Hematocrit 26 % (42-52); Hemoglobin 8.5 g/dL (14.0-18.0); Mean Corpuscular HGB Conc 33 g/dL (31-36); Mean Corpuscular Hemoglobin 30 pg (27-31); Mean Corpuscular Volume 92 fL (80-94); Mean Platelet Volume 8.3 fL (7.4-10.4); Platelet Count 251 10^3/uL (150-450); Red Blood Count 2.81 10^6 /uL (4.18-5.48); Red Cell Distribution Width 17 % (10-15); White Blood Count 9.9 10^3/uL (3.5-10.8)
[2019-07-04] MEDS: Aspirin EC TAB* 81 MG TAB.EC PO SCH (09:03)
[2019-07-04] MEDS: Pantoprazole TAB * 40 MG TAB PO SCH ×2 (09:03→21:10)
[2019-07-04] MEDS: Amiodarone TAB* 200 MG PO SCH ×2 (09:03→21:10)
[2019-07-04] MEDS: Metoprolol Tartrate TAB* 25 MG PO SCH ×2 (09:03→22:27)
[2019-07-04] MEDS: Iron Sucrose* 200 MG in NS 0.9% 100 ML* 100 ML IVPB SCH (11:44)
--- NOTE | 2019-07-04 12:01 | PN ---
Subjective Date of Service: 07/04/19 Interval History: Patient is feeling well today. Patient feels down about his situation. Patient denies CP, SOB, abdominal pain, dysuria, F/C, or other pain. Patient is still on board with HD conversion early next week. Patient states he is no longer making any urine. Family History: Unchanged from Admission Social History: Unchanged from Admission Past Medical History: Unchanged from Admission Objective Active Medications: Acetaminophen (Tylenol Tab*) 650 mg PO Q6H PRN PRN Reason: PAIN - MILD Last Admin: 07/03/19 22:19 Dose: 650 mg Albuterol/Ipratropium (Duoneb (Albuterol 2.5 Mg/Ipratropium 0.5 Mg)) 1 neb INH [id number] AWAKE PRN PRN Reason: sob/wheexing Amiodarone HCl (Cordarone Tab*) 200 mg PO BID [facility] Last Admin: 07/04/19 09:03 Dose: 200 mg Artificial Tears (Lacrilube Oint*) 1 applic LEFT EYE Q4H PRN PRN Reason: DRY EYE Aspirin (Aspirin Ec Tab*) 81 mg PO DAILY [facility] Last Admin: 07/04/19 09:03 Dose: 81 mg Iron Sucrose 200 mg/ Sodium (Chloride) 110 mls @ 440 mls/hr IVPB DAILY [facility] Stop: 07/08/19 09:14 Last Admin: 07/04/19 11:44 Dose: 440 mls/hr Metoprolol Tartrate (Lopressor Iv*) 5 mg IV Q6H PRN PRN Reason: BLOOD PRESSURE Last Admin: 06/29/19 08:19 Dose: 5 mg Metoprolol Tartrate (Lopressor Tab*) 25 mg PO Q12H [facility] Last Admin: 07/04/19 09:03 Dose: 25 mg Mupirocin (Bactroban 2 % Oint*) 1 applic TOPICAL DAILY [facility] Last Admin: 07/03/19 17:02 Dose: Not Given Pantoprazole Sodium (Protonix Tab*) 40 mg PO BID [facility] Last Admin: 07/04/19 09:03 Dose: 40 mg Trazodone HCl (Desyrel Tab*) 50 mg PO BEDTIME PRN PRN Reason: SLEEP Last Admin: 07/03/19 20:29 Dose: 50 mg Vital Signs - 8 hr 07/04/19 07/04/19 04:00 07:43 Temperature 97.9 F 97.8 F Pulse Rate 79 77 Respiratory 18 20 Rate Blood Pressure 96/50 100/46 (mmHg) O2 Sat by Pulse 99 97 Oximetry Oxygen Devices in Use Now: Nasal Cannula Appearance: Patient is an 83yo male who appears stated age and is sitting in the bed in NAD. Eyes: No Scleral Icterus, PERRLA Ears/Nose/Mouth/Throat: NL Teeth, Lips, Gums, Clear Oropharnyx, Mucous Membranes Moist Neck: NL Appearance and Movements; NL JVP, Trachea Midline Respiratory: Symmetrical Chest Expansion and Respiratory Effort, Clear to Auscultation Cardiovascular: NL Sounds; No Murmurs; No JVD, No Edema, - - Irregularly Irregular Rhythm Abdominal: NL Sounds; No Tenderness; No Distention, No Hepatosplenomegaly Lymphatic: No Cervical Adenopathy Extremities: No Edema, No Clubbing, Cyanosis Skin: No Rash or Ulcers, No Nodules or Sclerosis Neurological: Alert and Oriented x 3, - - Right sided weakness. Result Diagrams: 07/04/19 05:50 07/03/19 16:12 Additional Lab and Data: Laboratory Tests 07/02/19 07/02/19 07/03/19 06:24 15:28 05:26 ESR > 120 H Glucose 87 Calcium 8.4 L Magnesium 2.0 Iron < 20 L TIBC 130 L Transferrin 93 L TSH 3.55 Microbiology and Other Data: Microbiology 06/27/19 09:17 Blood Line Aerobic Blood Culture - Final No Growth Day 5 06/27/19 09:17 Blood Line Anaerobic Blood Culture - Final No Growth Day 5 06/26/19 11:48 Pleural Fluid Gram Stain - Final 06/26/19 11:48 Pleural Fluid Body Fluid Culture - Final No Growth Day 4 06/26/19 10:55 Nasal Nasal Screen MRSA (PCR) - Final Mrsa Not Detected 06/26/19 05:14 Nasal Nasal Screen MRSA (PCR) - Final Mrsa Not Detected 06/26/19 00:14 Stool Stool Occult Blood (YUAN) - Final Assess/Plan/Problems-Billing Assessment: 83 yo male PMH ESRD on peritoneal dialysis since December, HTN, pAfib, travel provoked PE, recent GIB (antral nodules) with severe anemia (now off a/c), p/w hgb 5. Course complicated by hypoxic respiratory failure (s/p 1.8L thoracentesis ), NSTEMI (trop peaked) and acute CVA with left sided neglect, homonymous hemianopsia, LUE > LLE weakness. s/p EGD with negative biopsy. Had lived alone, will need tunneled dialysis cath, an intermittent HD chair and SNF. - Patient Problems (1) Acute respiratory failure with hypoxia Current Visit: Yes Status: Acute Code(s): J96.01 - ACUTE RESPIRATORY FAILURE WITH HYPOXIA SNOMED Code(s): 43854843 Comment: - In setting of right> left pleural effusion and anemia. - Wean O2 as tolerated, may be able to be transitioned back to RA today - CXR on 07/01 with similar effusions. - Plan is to switch to HD instead of PD to assist with volume control. He is s/ p therapeutic thora on 06/25. - s/p 3 days of CFTX and azithromycin from 06/25-06/27 for concern for PNA (also had leukocytosis, improved) No ongoing symptoms of PNA (2) CVA (cerebral vascular accident) Current Visit: Yes Status: Acute Priority: High Code(s): I63.9 - CEREBRAL INFARCTION, UNSPECIFIED SNOMED Code(s): 818768077 Comment: - Very high risk for anticoagulation per GI. - Continue aspirin only for now. - May never be able to resume full AC, but should be evaluated on an ongoing basis due to very high CHADS-Vasc of 6 - With LVO, not candidate for tPa or Thrombectomy. (3) NSTEMI (non-ST elevated myocardial infarction) Current Visit: No Status: Acute Code(s): I21.4 - NON-ST ELEVATION (NSTEMI) MYOCARDIAL INFARCTION SNOMED Code(s): 90770313 Comment: - Continue aspirin, statin, BB. - ECHO 06/28: EF 50-55% moderate - New WMA. (4) Pleural effusion Current Visit: Yes Status: Acute Priority: Medium Code(s): J90 - PLEURAL EFFUSION, NOT ELSEWHERE CLASSIFIED SNOMED Code(s): 34304519 Comment: - Exudative per elevated pleural fluid LDH above 2/3 ULN. - Cytology, gram stain and culture negative - Unclear cause, ? Related to underlying inflammatory condition which has not been identified. (5) Acute blood loss anemia Current Visit: No Status: Acute Priority: Medium Code(s): D62 - ACUTE POSTHEMORRHAGIC ANEMIA SNOMED Code(s): 705554683 Comment: - UGIB, appreciate GI recs, has had three EGDs this month - Received 3 U PRBCs during this hospitalization (and 3 more last admission + 1 FFP) - PPI BID - Avoid NSAIDS. - Iron deficient, with no infection, start IV Iron, may need EPO with HD treatments (6) Atrial flutter Current Visit: No Status: Acute Code(s): I48.92 - UNSPECIFIED ATRIAL FLUTTER SNOMED Code(s): 6445023 Comment: - AC has been held since early June in setting of recurrent GIB - Appreciate cardiology recs. - Continue metoprolol 25 mg po BID and amiodarone 200mg BID. Will need to follow up to see if/when to decrease Amiodarone dose to limit toxicity. - Replete K>4, Mg >2 prn. - Continue telemetry. (7) ESRD (end stage renal disease) Current Visit: No Status: Acute Priority: Medium Code(s): N18.6 - END STAGE RENAL DISEASE SNOMED Code(s): 44344032 Comment: -on PD since dec 2018 -Switching to HD. Plan for tunneled dialysis cath early next week before a potential discharge to a SNF for further rehab. Needs a HD chair. Due to left- sided weakness and neglect he is unable to handle PD by himself. - HepC neg, other hepatitis screen pending - ANCA and WALTER pending due to severely high inflammatory markers and concern for undiagnosed systemic autoimmune disease. (8) HTN (hypertension) Current Visit: No Status: Acute Code(s): I10 - ESSENTIAL (PRIMARY) HYPERTENSION SNOMED Code(s): 55766041 Comment: - Continue metoprolol - Normotensive (9) History of pulmonary embolism Current Visit: No Status: Acute Code(s): Z86.711 - PERSONAL HISTORY OF PULMONARY EMBOLISM SNOMED Code(s): 865795218 Comment: - A/C held as above. - History of one travel provoked PE in 2013. (10) Hyperlipidemia Current Visit: No Status: Acute Code(s): E78.5 - HYPERLIPIDEMIA, UNSPECIFIED SNOMED Code(s): 36345423 Comment: -continue statin (11) DVT prophylaxis Current Visit: No Status: Acute Priority: Low Code(s): Z29.9 - ENCOUNTER FOR PROPHYLACTIC MEASURES, UNSPECIFIED SNOMED Code(s): 961720912 Comment: -SCDs -chemoprophylaxis contraindicated in setting of anemia (12) Full code status Current Visit: No Status: Acute Code(s): Z78.9 - OTHER SPECIFIED HEALTH STATUS SNOMED Code(s): 404904046 Status and Disposition: inpatient, awaiting dialysis cath, dialysis chair, BETH
[2019-07-04 12:51] LABS: Myeloperoxidase Antibody <0.2 U; Proteinase 3 <0.2 U
[2019-07-04] MEDS: Mupirocin 2% OINT* TUBE TOPICAL SCH (14:00)
[2019-07-04] MEDS: Acetaminophen TAB* 325 MG PO PRN (21:10)
[2019-07-04] MEDS: traZODone TAB* 50 MG TAB PO PRN (21:10)
[2019-07-05 08:06] LABS: ABS Eosinophils 0.5 10^3/ul (0-0.6); ABS Lymphocytes 0.7 10^3/ul (1.0-4.8); ABS Monocytes 1.1 10^3/ul (0-0.8); Eosinophil % 4.5 %; Hematocrit 24 % (42-52); Lymphocyte % 6.1 %; Mean Corpuscular HGB Conc 33 g/dL (31-36); Mean Corpuscular Hemoglobin 30 pg (27-31); Mean Corpuscular Volume 91 fL (80-94); Mean Platelet Volume 8.3 fL (7.4-10.4); Platelet Count 249 10^3/uL (150-450); Red Blood Count 2.67 10^6 /uL (4.18-5.48); Red Cell Distribution Width 17 % (10-15); White Blood Count 11.4 10^3/uL (3.5-10.8)
[2019-07-05 08:18] LABS: BUN/Creatinine Ratio 5.3 (8-20); Calcium 8.6 mg/dL (8.6-10.3); EGFR African American 4.7 (>60); EGFR Non-African American 3.8 (>60); Magnesium 2.2 mg/dL (1.9-2.7); Potassium 4.2 mmol/L (3.5-5.0)
[2019-07-05] MEDS: Mupirocin 2% OINT* TUBE TOPICAL SCH (10:43)
[2019-07-05] MEDS: Pantoprazole TAB * 40 MG TAB PO SCH ×2 (10:43→20:32)
[2019-07-05] MEDS: Aspirin EC TAB* 81 MG TAB.EC PO SCH (10:43)
[2019-07-05] MEDS: Metoprolol Tartrate TAB* 25 MG PO SCH ×2 (10:43→20:32)
[2019-07-05] MEDS: Iron Sucrose* 200 MG in NS 0.9% 100 ML* 100 ML IVPB SCH (10:43)
[2019-07-05] MEDS: Amiodarone TAB* 200 MG PO SCH ×2 (10:43→20:32)
[2019-07-05] MEDS: Acetaminophen TAB* 325 MG PO PRN ×2 (10:51→22:41)
--- NOTE | 2019-07-05 14:36 | PN ---
Subjective Date of Service: 07/05/19 Interval History: Patient feels more tired today. Patient denies F/C, N/V, abdominal pain, dizziness, palpitations, diarrhea, or other pain. Patient is still making no urine. Family History: Unchanged from Admission Social History: Unchanged from Admission Past Medical History: Unchanged from Admission Objective Active Medications: Acetaminophen (Tylenol Tab*) 650 mg PO Q6H PRN PRN Reason: PAIN - MILD Last Admin: 07/05/19 10:51 Dose: 650 mg Albuterol/Ipratropium (Duoneb (Albuterol 2.5 Mg/Ipratropium 0.5 Mg)) 1 neb INH [id number] AWAKE PRN PRN Reason: sob/wheexing Amiodarone HCl (Cordarone Tab*) 200 mg PO BID [facility] Last Admin: 07/05/19 10:43 Dose: 200 mg Artificial Tears (Lacrilube Oint*) 1 applic LEFT EYE Q4H PRN PRN Reason: DRY EYE Aspirin (Aspirin Ec Tab*) 81 mg PO DAILY [facility] Last Admin: 07/05/19 10:43 Dose: 81 mg Iron Sucrose 200 mg/ Sodium (Chloride) 110 mls @ 440 mls/hr IVPB DAILY [facility] Stop: 07/08/19 09:14 Last Admin: 07/05/19 10:43 Dose: 440 mls/hr Metoprolol Tartrate (Lopressor Iv*) 5 mg IV Q6H PRN PRN Reason: BLOOD PRESSURE Last Admin: 06/29/19 08:19 Dose: 5 mg Metoprolol Tartrate (Lopressor Tab*) 12.5 mg PO Q12HR [facility] Last Admin: 07/05/19 10:43 Dose: 12.5 mg Mupirocin (Bactroban 2 % Oint*) 1 applic TOPICAL DAILY [facility] Last Admin: 07/05/19 10:43 Dose: Not Given Pantoprazole Sodium (Protonix Tab*) 40 mg PO BID [facility] Last Admin: 07/05/19 10:43 Dose: 40 mg Trazodone HCl (Desyrel Tab*) 50 mg PO BEDTIME PRN PRN Reason: SLEEP Last Admin: 07/04/19 21:10 Dose: 50 mg Vital Signs - 8 hr 07/05/19 07/05/19 07:52 11:21 Temperature 97.8 F Pulse Rate 77 Respiratory 16 16 Rate Blood Pressure 102/50 (mmHg) O2 Sat by Pulse 98 Oximetry Oxygen Devices in Use Now: Nasal Cannula Appearance: Patient is an 83yo male who appears stated age and is sitting in the bed in NAD. Eyes: No Scleral Icterus, PERRLA Ears/Nose/Mouth/Throat: NL Teeth, Lips, Gums, Clear Oropharnyx, Mucous Membranes Moist Neck: NL Appearance and Movements; NL JVP, Trachea Midline Respiratory: Symmetrical Chest Expansion and Respiratory Effort, Clear to Auscultation Cardiovascular: NL Sounds; No Murmurs; No JVD, No Edema, - - irregularly irregular rhythm. Abdominal: NL Sounds; No Tenderness; No Distention, No Hepatosplenomegaly Lymphatic: No Cervical Adenopathy Extremities: No Edema, No Clubbing, Cyanosis Skin: No Rash or Ulcers, No Nodules or Sclerosis Neurological: Alert and Oriented x 3, NL Sensation, - - Unchanged weakness. Result Diagrams: 07/05/19 07:55 07/05/19 07:55 Additional Lab and Data: Laboratory Tests 07/02/19 07/02/19 07/03/19 06:24 15:28 05:26 ESR > 120 H Glucose 87 Calcium 8.4 L Magnesium 2.0 Iron < 20 L TIBC 130 L Transferrin 93 L TSH 3.55 Microbiology and Other Data: Microbiology 06/27/19 09:17 Blood Line Aerobic Blood Culture - Final No Growth Day 5 06/27/19 09:17 Blood Line Anaerobic Blood Culture - Final No Growth Day 5 06/26/19 11:48 Pleural Fluid Gram Stain - Final 06/26/19 11:48 Pleural Fluid Body Fluid Culture - Final No Growth Day 4 06/26/19 10:55 Nasal Nasal Screen MRSA (PCR) - Final Mrsa Not Detected 06/26/19 05:14 Nasal Nasal Screen MRSA (PCR) - Final Mrsa Not Detected 06/26/19 00:14 Stool Stool Occult Blood (YUAN) - Final Assess/Plan/Problems-Billing Assessment: 83 yo male PMH ESRD on peritoneal dialysis since December, HTN, pAfib, travel provoked PE, recent GIB (antral nodules) with severe anemia (now off a/c), p/w hgb 5. Course complicated by hypoxic respiratory failure (s/p 1.8L thoracentesis ), NSTEMI (trop peaked) and acute CVA with left sided neglect, homonymous hemianopsia, LUE > LLE weakness. s/p EGD with negative biopsy. Had lived alone, will need tunneled dialysis cath, an intermittent HD chair and SNF. - Patient Problems (1) Acute respiratory failure with hypoxia Current Visit: Yes Status: Acute Code(s): J96.01 - ACUTE RESPIRATORY FAILURE WITH HYPOXIA SNOMED Code(s): 36965575 Comment: - In setting of right> left pleural effusion and anemia. - Wean O2 as tolerated, may be able to be transitioned back to RA today - CXR on 07/01 with similar effusions. - Plan is to switch to HD instead of PD to assist with volume control. He is s/ p therapeutic thora on 06/25. - s/p 3 days of CFTX and azithromycin from 06/25-06/27 for concern for PNA (also had leukocytosis, improved) No ongoing symptoms of PNA (2) CVA (cerebral vascular accident) Current Visit: Yes Status: Acute Priority: High Code(s): I63.9 - CEREBRAL INFARCTION, UNSPECIFIED SNOMED Code(s): 001929096 Comment: - Very high risk for anticoagulation per GI. - Continue aspirin only for now. - May never be able to resume full AC, but should be evaluated on an ongoing basis due to very high CHADS-Vasc of 6 - With LVO, not candidate for tPa or Thrombectomy. (3) NSTEMI (non-ST elevated myocardial infarction) Current Visit: No Status: Acute Code(s): I21.4 - NON-ST ELEVATION (NSTEMI) MYOCARDIAL INFARCTION SNOMED Code(s): 49810596 Comment: - Continue aspirin, statin, BB. - ECHO 06/28: EF 50-55% moderate - New WMA. (4) Pleural effusion Current Visit: Yes Status: Acute Priority: Medium Code(s): J90 - PLEURAL EFFUSION, NOT ELSEWHERE CLASSIFIED SNOMED Code(s): 86422869 Comment: - Exudative per elevated pleural fluid LDH above 2/3 ULN. - Cytology, gram stain and culture negative - Unclear cause, ? Related to underlying inflammatory condition which has not been identified. - May also be related to PNA (5) Acute blood loss anemia Current Visit: No Status: Acute Priority: Medium Code(s): D62 - ACUTE POSTHEMORRHAGIC ANEMIA SNOMED Code(s): 534952576 Comment: - UGIB, appreciate GI recs, has had three EGDs this month - Received 3 U PRBCs during this hospitalization (and 3 more last admission + 1 FFP) - PPI BID - Avoid NSAIDS. - Iron deficient, with no infection, start IV Iron, may need EPO with HD treatments (6) Atrial flutter Current Visit: No Status: Acute Code(s): I48.92 - UNSPECIFIED ATRIAL FLUTTER SNOMED Code(s): 5392944 Comment: - AC has been held since early June in setting of recurrent GIB - Appreciate cardiology recs. - Continue metoprolol 25 mg po BID and amiodarone 200mg BID. Will need to follow up to see if/when to decrease Amiodarone dose to limit toxicity. - Replete K>4, Mg >2 prn. - Continue telemetry. (7) ESRD (end stage renal disease) Current Visit: No Status: Acute Priority: Medium Code(s): N18.6 - END STAGE RENAL DISEASE SNOMED Code(s): 32816253 Comment: -on PD since dec 2018 -Switching to HD. Plan for tunneled dialysis cath early next week before a potential discharge to a SNF for further rehab. Needs a HD chair. Due to left- sided weakness and neglect he is unable to handle PD by himself. - HepC neg, other hepatitis screen pending - ANCA and WALTER negative - Cret and Urea slowly increasing. May be contributing to encephlopathy (8) HTN (hypertension) Current Visit: No Status: Acute Code(s): I10 - ESSENTIAL (PRIMARY) HYPERTENSION SNOMED Code(s): 44893817 Comment: - Continue metoprolol - Normotensive (9) History of pulmonary embolism Current Visit: No Status: Acute Code(s): Z86.711 - PERSONAL HISTORY OF PULMONARY EMBOLISM SNOMED Code(s): 643873402 Comment: - A/C held as above. - History of one travel provoked PE in 2013. (10) Hyperlipidemia Current Visit: No Status: Acute Code(s): E78.5 - HYPERLIPIDEMIA, UNSPECIFIED SNOMED Code(s): 93233980 Comment: -continue statin (11) DVT prophylaxis Current Visit: No Status: Acute Priority: Low Code(s): Z29.9 - ENCOUNTER FOR PROPHYLACTIC MEASURES, UNSPECIFIED SNOMED Code(s): 647086553 Comment: -SCDs -chemoprophylaxis contraindicated in setting of anemia (12) Full code status Current Visit: No Status: Acute Code(s): Z78.9 - OTHER SPECIFIED HEALTH STATUS SNOMED Code(s): 587363861 Status and Disposition: inpatient, awaiting dialysis cath, dialysis chair, BETH
[2019-07-05] MEDS: traZODone TAB* 50 MG TAB PO PRN (20:42)
[2019-07-06 06:43] LABS: BUN/Creatinine Ratio 5.6 (8-20); Calcium 8.6 mg/dL (8.6-10.3); EGFR African American 4.7 (>60); EGFR Non-African American 3.9 (>60); Magnesium 2.2 mg/dL (1.9-2.7); Phosphorus 9.8 mg/dL (2.5-5.0); Potassium 4.3 mmol/L (3.5-5.0)
[2019-07-06 07:01] LABS: ABS Eosinophils 0.5 10^3/ul (0-0.6); ABS Lymphocytes 0.8 10^3/ul (1.0-4.8); ABS Monocytes 1.1 10^3/ul (0-0.8); ABS Neutrophils 8.8 10^3/ul (1.5-7.7); Eosinophil % 4.3 %; Hematocrit 24 % (42-52); Hemoglobin 7.9 g/dL (14.0-18.0); Lymphocyte % 7.2 %; Mean Corpuscular HGB Conc 33 g/dL (31-36); Mean Corpuscular Hemoglobin 30 pg (27-31); Mean Corpuscular Volume 92 fL (80-94); Mean Platelet Volume 8.6 fL (7.4-10.4); Platelet Count 241 10^3/uL (150-450); Red Blood Count 2.62 10^6 /uL (4.18-5.48); Red Cell Distribution Width 17 % (10-15); White Blood Count 11.2 10^3/uL (3.5-10.8)
[2019-07-06] MEDS: Iron Sucrose* 200 MG in NS 0.9% 100 ML* 100 ML IVPB SCH (08:00)
[2019-07-06] MEDS: Aspirin EC TAB* 81 MG TAB.EC PO SCH (08:01)
[2019-07-06] MEDS: Metoprolol Tartrate TAB* 25 MG PO SCH (08:01)
[2019-07-06] MEDS: Amiodarone TAB* 200 MG PO SCH ×2 (08:01→21:14)
[2019-07-06] MEDS: Pantoprazole TAB * 40 MG TAB PO SCH ×2 (08:01→21:14)
[2019-07-06] MEDS: Mupirocin 2% OINT* TUBE TOPICAL SCH (08:01)
--- NOTE | 2019-07-06 12:25 | PN ---
Progress Note - Progress Note Date of Service: 07/06/19 Note: hurts all over, no abd pain, no black stools VS: 97.9, 91/40, 76,17 nad, alert +bs soft nt/nd hgb 8--->7.9 stable H/H; no active bleeding; awaiting dialysis cath Gilberto Trinh MD
--- NOTE | 2019-07-06 14:29 | PN ---
Subjective Date of Service: 07/06/19 Interval History: Patient is feeling "Blah" today. Patient denies any pain, CP, SOB, Dizziness, palpitations, N/V, or other pain. Family History: Unchanged from Admission Social History: Unchanged from Admission Past Medical History: Unchanged from Admission Objective Active Medications: Acetaminophen (Tylenol Tab*) 650 mg PO Q6H PRN PRN Reason: PAIN - MILD Last Admin: 07/05/19 22:41 Dose: 650 mg Albuterol/Ipratropium (Duoneb (Albuterol 2.5 Mg/Ipratropium 0.5 Mg)) 1 neb INH [id number] AWAKE PRN PRN Reason: sob/wheexing Amiodarone HCl (Cordarone Tab*) 200 mg PO BID [facility] Last Admin: 07/06/19 08:01 Dose: 200 mg Artificial Tears (Lacrilube Oint*) 1 applic LEFT EYE Q4H PRN PRN Reason: DRY EYE Aspirin (Aspirin Ec Tab*) 81 mg PO DAILY [facility] Last Admin: 07/06/19 08:01 Dose: 81 mg Iron Sucrose 200 mg/ Sodium (Chloride) 110 mls @ 440 mls/hr IVPB DAILY [facility] Stop: 07/08/19 09:14 Last Admin: 07/06/19 08:00 Dose: 440 mls/hr Mupirocin (Bactroban 2 % Oint*) 1 applic TOPICAL DAILY [facility] Last Admin: 07/06/19 08:01 Dose: Not Given Pantoprazole Sodium (Protonix Tab*) 40 mg PO BID [facility] Last Admin: 07/06/19 08:01 Dose: 40 mg Trazodone HCl (Desyrel Tab*) 50 mg PO BEDTIME PRN PRN Reason: SLEEP Last Admin: 07/05/19 20:42 Dose: 50 mg Vital Signs - 8 hr 07/06/19 07/06/19 07/06/19 07:37 08:00 11:35 Temperature 97.9 F 97.8 F Pulse Rate 76 75 Respiratory 17 16 18 Rate Blood Pressure 91/40 83/34 (mmHg) O2 Sat by Pulse 99 94 Oximetry Oxygen Devices in Use Now: None Appearance: Patient is an 83yo male who appears stated age and is sitting in the bed in NAD. Eyes: No Scleral Icterus, PERRLA Ears/Nose/Mouth/Throat: NL Teeth, Lips, Gums, Clear Oropharnyx, Mucous Membranes Moist Neck: NL Appearance and Movements; NL JVP, Trachea Midline Respiratory: Symmetrical Chest Expansion and Respiratory Effort, Clear to Auscultation Cardiovascular: NL Sounds; No Murmurs; No JVD, RRR, No Edema Abdominal: NL Sounds; No Tenderness; No Distention, No Hepatosplenomegaly Lymphatic: No Cervical Adenopathy Extremities: No Edema, No Clubbing, Cyanosis Skin: No Rash or Ulcers, No Nodules or Sclerosis Neurological: Alert and Oriented x 3, NL Sensation, - - CN II-XII intact. Unchanged weakness. Result Diagrams: 07/06/19 06:17 07/06/19 06:17 Additional Lab and Data: Laboratory Tests 07/02/19 07/02/19 07/03/19 06:24 15:28 05:26 ESR > 120 H Glucose 87 Calcium 8.4 L Magnesium 2.0 Iron < 20 L TIBC 130 L Transferrin 93 L TSH 3.55 Microbiology and Other Data: Microbiology 06/27/19 09:17 Blood Line Aerobic Blood Culture - Final No Growth Day 5 06/27/19 09:17 Blood Line Anaerobic Blood Culture - Final No Growth Day 5 06/26/19 11:48 Pleural Fluid Gram Stain - Final 06/26/19 11:48 Pleural Fluid Body Fluid Culture - Final No Growth Day 4 06/26/19 10:55 Nasal Nasal Screen MRSA (PCR) - Final Mrsa Not Detected 06/26/19 05:14 Nasal Nasal Screen MRSA (PCR) - Final Mrsa Not Detected 06/26/19 00:14 Stool Stool Occult Blood (YUAN) - Final Assess/Plan/Problems-Billing Assessment: 83 yo male PMH ESRD on peritoneal dialysis since December, HTN, pAfib, travel provoked PE, recent GIB (antral nodules) with severe anemia (now off a/c), p/w hgb 5. Course complicated by hypoxic respiratory failure (s/p 1.8L thoracentesis ), NSTEMI (trop peaked) and acute CVA with left sided neglect, homonymous hemianopsia, LUE > LLE weakness. s/p EGD with negative biopsy. Had lived alone, will need tunneled dialysis cath, an intermittent HD chair and SNF. - Patient Problems (1) Acute respiratory failure with hypoxia Current Visit: Yes Status: Acute Code(s): J96.01 - ACUTE RESPIRATORY FAILURE WITH HYPOXIA SNOMED Code(s): 75895310 Comment: - In setting of right> left pleural effusion and anemia. - Wean O2 as tolerated, now on RA. - CXR on 07/01 with similar effusions. - Plan is to switch to HD instead of PD to assist with volume control. He is s/ p therapeutic thora on 06/25. - s/p 3 days of CFTX and azithromycin from 06/25-06/27 for concern for PNA (also had leukocytosis, improved) No ongoing symptoms of PNA (2) CVA (cerebral vascular accident) Current Visit: Yes Status: Acute Priority: High Code(s): I63.9 - CEREBRAL INFARCTION, UNSPECIFIED SNOMED Code(s): 449749928 Comment: - Very high risk for anticoagulation per GI. - Continue aspirin only for now. - May never be able to resume full AC, but should be evaluated on an ongoing basis due to very high CHADS-Vasc of 6 - With LVO, not candidate for tPa or Thrombectomy. (3) NSTEMI (non-ST elevated myocardial infarction) Current Visit: No Status: Acute Code(s): I21.4 - NON-ST ELEVATION (NSTEMI) MYOCARDIAL INFARCTION SNOMED Code(s): 60979864 Comment: - Continue aspirin, statin, BB. - ECHO 06/28: EF 50-55% moderate - New WMA. (4) Pleural effusion Current Visit: Yes Status: Acute Priority: Medium Code(s): J90 - PLEURAL EFFUSION, NOT ELSEWHERE CLASSIFIED SNOMED Code(s): 90270547 Comment: - Exudative per elevated pleural fluid LDH above 2/3 ULN. - Cytology, gram stain and culture negative - Unclear cause, ? Related to underlying inflammatory condition which has not been identified. - May also be related to PNA (5) Acute blood loss anemia Current Visit: No Status: Acute Priority: Medium Code(s): D62 - ACUTE POSTHEMORRHAGIC ANEMIA SNOMED Code(s): 794146656 Comment: - UGIB, appreciate GI recs, has had three EGDs this month - Received 3 U PRBCs during this hospitalization (and 3 more last admission + 1 FFP) - PPI BID - Avoid NSAIDS. - Iron deficient, with no infection, start IV Iron, may need EPO with HD treatments - Stable with slight decrease. (6) Atrial flutter Current Visit: No Status: Acute Code(s): I48.92 - UNSPECIFIED ATRIAL FLUTTER SNOMED Code(s): 4786396 Comment: - AC has been held since early June in setting of recurrent GIB - Appreciate cardiology recs. - Continue Amiodarone 200mg BID. - Replete K>4, Mg >2 prn. - Continue telemetry. - Stop metoprolol and monitor for hypotension and possible rebound Afib (7) ESRD (end stage renal disease) Current Visit: No Status: Acute Priority: Medium Code(s): N18.6 - END STAGE RENAL DISEASE SNOMED Code(s): 24090022 Comment: -on PD since dec 2018 -Switching to HD. Plan for tunneled dialysis cath early next week before a potential discharge to a SNF for further rehab. Needs a HD chair. Due to left- sided weakness and neglect he is unable to handle PD by himself. - HepC neg, other hepatitis screen pending - ANCA and WALTER negative - Cret and Urea slowly increasing. This is still WNL per Nephro (8) HTN (hypertension) Current Visit: No Status: Acute Code(s): I10 - ESSENTIAL (PRIMARY) HYPERTENSION SNOMED Code(s): 85961841 Comment: - Continue metoprolol - Normotensive (9) History of pulmonary embolism Current Visit: No Status: Acute Code(s): Z86.711 - PERSONAL HISTORY OF PULMONARY EMBOLISM SNOMED Code(s): 614956039 Comment: - A/C held as above. - History of one travel provoked PE in 2013. (10) Hyperlipidemia Current Visit: No Status: Acute Code(s): E78.5 - HYPERLIPIDEMIA, UNSPECIFIED SNOMED Code(s): 56339209 Comment: -continue statin (11) DVT prophylaxis Current Visit: No Status: Acute Priority: Low Code(s): Z29.9 - ENCOUNTER FOR PROPHYLACTIC MEASURES, UNSPECIFIED SNOMED Code(s): 848556031 Comment: -SCDs -chemoprophylaxis contraindicated in setting of anemia (12) Full code status Current Visit: No Status: Acute Code(s): Z78.9 - OTHER SPECIFIED HEALTH STATUS SNOMED Code(s): 131809451 Status and Disposition: inpatient, awaiting dialysis cath, dialysis chair, BETH
--- NOTE | 2019-07-06 16:47 | PN ---
Progress Note - Progress Note Date of Service: 07/06/19 - nephrology note Note: Chief complaint: End-stage renal disease on peritoneal dialysis. History of present illness: He looks very weak today. He feels tired.. Decreased appetite. Denies abdominal pain. He states PD is going well without alarms at night. Per [facility] RN his total UF this am was 400 cc. He received his Treatment of 12 hours, 1 hour 36 min dwell time, all 2.5%. Physical exam was limited due to COVID 19. Blood pressure 108/57, oxygen saturation is 97% on 2 L supplemental oxygen, heart rate 72 bpm, respiratory rate 18/min. Sitting in chair looking very weak, very much changed from baseline Abdomen is soft. He has LE edema Skin is wrinkled with decreased turgor Awake and alert. Labs: Hemoglobin 7.9, platelets 241, where blood cell count 11.2, iron less than 20, iron saturation 15%, ferritin greater than 1500 after receiving blood transfusions. Sodium 135, potassium 4.3, total CO2 26, BUN 70, creatinine 12.54. Medications: Aspirin 81 mg daily, iron sucrose 200 mg IV 5, was started on July 03 Protonix for 40 mg by mouth twice a day Trazodone 50 mg by mouth at bedtime. Assessment and Plan: Very nice 83-year-old patient with end-stage kidney disease on peritoneal dialysis, readmitted with acute and severe anemia secondary to GI bleed. So far he had a very difficult hospitalization with a NSTEMI due to demand ischemia. History of atrial fibrillation on anticoagulation. which was stopped due to GI bleed. Subsequently he developed an acute embolic stroke with left-side hemineglect ESRD due to HTN Peritoneal dialysis going without complications. BUN and creatinine are very typical for peritoneal dialysis patients. BUN may be elevated as well because of GI bleed. I saw the patient during maintenance peritoneal dialysis today. He was set up for dialysis around 2 PM. Todays prescription is given for 12 hours, 1 hour and I have dwell time, will 1.5%. Volume status: Patient seems to be volume depleted. Also will do all 1.5% for minimal ultrafiltration overnight. He has very poor oral ntake. Hypotension: Most probably due to volume depletion. He is not on any blood pressure medications. Moderate aortic stenosis - most likely not contributing to his hypotension Status post non-STEMI due to a hemoglobin of 5.4. Troponin peaked at 11.3. Echo showed a ejection fraction of 55-60% and mid apical anteroseptal hypokinesis. Acute anemia secondary to recurrent GI bleed. Iron deficiency. Started on IV iron. He seems to still be bleeding as hemoglobin keeps trickling down. He also has anemia of end-stage kidney disease. Status post EGD with stomach biopsies: H. 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 In this situation his bleeding was most probably secondary to anticoagulation. Atrial fibrillation. Not on anticoagulation due to GI bleed. On amiodarone. Rate controlled in the 70s. Status post acute embolic stroke. Left-side deficit. Right sided pleural effusion on admission. s/p thoracocenthesis
[2019-07-06] MEDS: traZODone TAB* 50 MG TAB PO PRN (21:14)
[2019-07-06] MEDS: Acetaminophen TAB* 325 MG PO PRN (21:14)
[2019-07-07 06:44] LABS: ABS Eosinophils 0.5 10^3/ul (0-0.6); ABS Lymphocytes 0.8 10^3/ul (1.0-4.8); ABS Monocytes 1.1 10^3/ul (0-0.8); ABS Neutrophils 9.5 10^3/ul (1.5-7.7); Eosinophil % 4.1 %; Hematocrit 23 % (42-52); Hemoglobin 7.7 g/dL (14.0-18.0); Lymphocyte % 6.7 %; Mean Corpuscular HGB Conc 33 g/dL (31-36); Mean Corpuscular Hemoglobin 30 pg (27-31); Mean Corpuscular Volume 90 fL (80-94); Mean Platelet Volume 8.5 fL (7.4-10.4); Platelet Count 243 10^3/uL (150-450); Red Blood Count 2.57 10^6 /uL (4.18-5.48); Red Cell Distribution Width 17 % (10-15); White Blood Count 11.8 10^3/uL (3.5-10.8)
[2019-07-07 07:06] LABS: BUN/Creatinine Ratio 5.7 (8-20); Calcium 8.5 mg/dL (8.6-10.3); EGFR African American 4.4 (>60); EGFR Non-African American 3.7 (>60); Magnesium 2.4 mg/dL (1.9-2.7); Potassium 4.2 mmol/L (3.5-5.0)
[2019-07-07] MEDS: Aspirin EC TAB* 81 MG TAB.EC PO SCH (08:08)
[2019-07-07] MEDS: Pantoprazole TAB * 40 MG TAB PO SCH ×2 (08:08→21:55)
[2019-07-07] MEDS: Iron Sucrose* 200 MG in NS 0.9% 100 ML* 100 ML IVPB SCH (08:08)
[2019-07-07] MEDS: Amiodarone TAB* 200 MG PO SCH ×2 (08:08→21:55)
[2019-07-07] MEDS: Mupirocin 2% OINT* TUBE TOPICAL SCH (08:08)
[2019-07-07] MEDS: Acetaminophen TAB* 325 MG PO PRN (08:09)
--- NOTE | 2019-07-07 11:24 | PN ---
Subjective Date of Service: 07/07/19 Interval History: Patient is feeling the same as yesterday. Patient has no specific complaints. Patient denies CP, SOB, F/C, N/V, abdominal pain, or other pain. Patient feels as if his left sided weakness is improved. Family History: Unchanged from Admission Social History: Unchanged from Admission Past Medical History: Unchanged from Admission Objective Active Medications: Acetaminophen (Tylenol Tab*) 650 mg PO Q6H PRN PRN Reason: PAIN - MILD Last Admin: 07/07/19 08:09 Dose: 650 mg Albuterol/Ipratropium (Duoneb (Albuterol 2.5 Mg/Ipratropium 0.5 Mg)) 1 neb INH [id number] AWAKE PRN PRN Reason: sob/wheexing Amiodarone HCl (Cordarone Tab*) 200 mg PO BID [facility] Last Admin: 07/07/19 08:08 Dose: 200 mg Artificial Tears (Lacrilube Oint*) 1 applic LEFT EYE Q4H PRN PRN Reason: DRY EYE Aspirin (Aspirin Ec Tab*) 81 mg PO DAILY [facility] Last Admin: 07/07/19 08:08 Dose: 81 mg Iron Sucrose 200 mg/ Sodium (Chloride) 110 mls @ 440 mls/hr IVPB DAILY [facility] Stop: 07/08/19 09:14 Last Admin: 07/07/19 08:08 Dose: 440 mls/hr Mupirocin (Bactroban 2 % Oint*) 1 applic TOPICAL DAILY [facility] Last Admin: 07/07/19 08:08 Dose: Not Given Pantoprazole Sodium (Protonix Tab*) 40 mg PO BID [facility] Last Admin: 07/07/19 08:08 Dose: 40 mg Trazodone HCl (Desyrel Tab*) 50 mg PO BEDTIME PRN PRN Reason: SLEEP Last Admin: 07/06/19 21:14 Dose: 50 mg Vital Signs - 8 hr 07/07/19 07/07/19 07/07/19 03:35 07:37 07:41 Temperature 97.9 F 97.2 F Pulse Rate 87 77 Respiratory 18 20 Rate Blood Pressure 98/46 90/44 (mmHg) O2 Sat by Pulse 93 98 Oximetry 07/07/19 07:48 Temperature Pulse Rate Respiratory 16 Rate Blood Pressure (mmHg) O2 Sat by Pulse Oximetry Oxygen Devices in Use Now: None Appearance: Patient is an 83yo male who appears stated age and is sitting in the bed in NAD. Result Diagrams: 07/07/19 06:31 07/07/19 06:31 Additional Lab and Data: Laboratory Tests 07/02/19 07/02/19 07/03/19 06:24 15:28 05:26 ESR > 120 H Glucose 87 Calcium 8.4 L Magnesium 2.0 Iron < 20 L TIBC 130 L Transferrin 93 L TSH 3.55 Microbiology and Other Data: Microbiology 06/27/19 09:17 Blood Line Aerobic Blood Culture - Final No Growth Day 5 06/27/19 09:17 Blood Line Anaerobic Blood Culture - Final No Growth Day 5 06/26/19 11:48 Pleural Fluid Gram Stain - Final 06/26/19 11:48 Pleural Fluid Body Fluid Culture - Final No Growth Day 4 06/26/19 10:55 Nasal Nasal Screen MRSA (PCR) - Final Mrsa Not Detected 06/26/19 05:14 Nasal Nasal Screen MRSA (PCR) - Final Mrsa Not Detected 06/26/19 00:14 Stool Stool Occult Blood (YUAN) - Final Assess/Plan/Problems-Billing Assessment: 83 yo male PMH ESRD on peritoneal dialysis since December, HTN, pAfib, travel provoked PE, recent GIB (antral nodules) with severe anemia (now off a/c), p/w hgb 5. Course complicated by hypoxic respiratory failure (s/p 1.8L thoracentesis ), NSTEMI (trop peaked) and acute CVA with left sided neglect, homonymous hemianopsia, LUE > LLE weakness. s/p EGD with negative biopsy. Had lived alone, will need tunneled dialysis cath, an intermittent HD chair and SNF. - Patient Problems (1) Acute respiratory failure with hypoxia Current Visit: Yes Status: Acute Code(s): J96.01 - ACUTE RESPIRATORY FAILURE WITH HYPOXIA SNOMED Code(s): 52777017 Comment: - In setting of right> left pleural effusion and anemia. - Wean O2 as tolerated, now on RA. - CXR on 07/01 with similar effusions. - Plan is to switch to HD instead of PD to assist with volume control. He is s/ p therapeutic thora on 06/25. - s/p 3 days of CFTX and azithromycin from 06/25-06/27 for concern for PNA (also had leukocytosis, improved) No ongoing symptoms of PNA (2) CVA (cerebral vascular accident) Current Visit: Yes Status: Acute Priority: High Code(s): I63.9 - CEREBRAL INFARCTION, UNSPECIFIED SNOMED Code(s): 303579325 Comment: - Very high risk for anticoagulation per GI. - Continue aspirin only for now. - May never be able to resume full AC, but should be evaluated on an ongoing basis due to very high CHADS-Vasc of 6 - With LVO, not candidate for tPa or Thrombectomy. (3) NSTEMI (non-ST elevated myocardial infarction) Current Visit: No Status: Acute Code(s): I21.4 - NON-ST ELEVATION (NSTEMI) MYOCARDIAL INFARCTION SNOMED Code(s): 18620526 Comment: - Continue aspirin, statin, BB. - ECHO 06/28: EF 50-55% moderate - New WMA. (4) Pleural effusion Current Visit: Yes Status: Acute Priority: Medium Code(s): J90 - PLEURAL EFFUSION, NOT ELSEWHERE CLASSIFIED SNOMED Code(s): 00698968 Comment: - Exudative per elevated pleural fluid LDH above 2/3 ULN. - Cytology, gram stain and culture negative - Unclear cause, ? Related to underlying inflammatory condition which has not been identified. - May also be related to PNA (5) Acute blood loss anemia Current Visit: No Status: Acute Priority: Medium Code(s): D62 - ACUTE POSTHEMORRHAGIC ANEMIA SNOMED Code(s): 475259335 Comment: - UGIB, appreciate GI recs, has had three EGDs this month - Received 3 U PRBCs during this hospitalization (and 3 more last admission + 1 FFP) - PPI BID - Avoid NSAIDS. - Iron deficient, with no infection, start IV Iron, may need EPO with HD treatments - Stable with slight decrease. (6) Atrial flutter Current Visit: No Status: Acute Code(s): I48.92 - UNSPECIFIED ATRIAL FLUTTER SNOMED Code(s): 2987536 Comment: - AC has been held since early June in setting of recurrent GIB - Appreciate cardiology recs. - Continue Amiodarone 200mg BID. - Replete K>4, Mg >2 prn. - Continue telemetry. - Stop metoprolol and monitor for hypotension and possible rebound Afib (7) ESRD (end stage renal disease) Current Visit: No Status: Acute Priority: Medium Code(s): N18.6 - END STAGE RENAL DISEASE SNOMED Code(s): 99163487 Comment: -on PD since dec 2018 -Switching to HD. Plan for tunneled dialysis cath early next week before a potential discharge to a SNF for further rehab. Needs a HD chair. Due to left- sided weakness and neglect he is unable to handle PD by himself. - HepC neg, other hepatitis screen pending - ANCA and WALTER negative - Cret and Urea slowly increasing. This is still WNL per Nephro (8) HTN (hypertension) Current Visit: No Status: Acute Code(s): I10 - ESSENTIAL (PRIMARY) HYPERTENSION SNOMED Code(s): 62656916 Comment: - Continue metoprolol - Normotensive (9) History of pulmonary embolism Current Visit: No Status: Acute Code(s): Z86.711 - PERSONAL HISTORY OF PULMONARY EMBOLISM SNOMED Code(s): 103947339 Comment: - A/C held as above. - History of one travel provoked PE in 2013. (10) Hyperlipidemia Current Visit: No Status: Acute Code(s): E78.5 - HYPERLIPIDEMIA, UNSPECIFIED SNOMED Code(s): 30098538 Comment: -continue statin (11) DVT prophylaxis Current Visit: No Status: Acute Priority: Low Code(s): Z29.9 - ENCOUNTER FOR PROPHYLACTIC MEASURES, UNSPECIFIED SNOMED Code(s): 897108181 Comment: -SCDs -chemoprophylaxis contraindicated in setting of anemia (12) Full code status Current Visit: No Status: Acute Code(s): Z78.9 - OTHER SPECIFIED HEALTH STATUS SNOMED Code(s): 111174004 Status and Disposition: inpatient, awaiting dialysis cath, dialysis chair, BETH
--- NOTE | 2019-07-07 17:34 | PN ---
Progress Note - Progress Note Date of Service: 07/07/19 - Nephrology Note: Chief complaint: End-stage renal disease on peritoneal dialysis. History of present illness: still looks tired and chronically ill. he has very poor appetite but has been able to eat fluids and soft diet. He pushes himself to eat something. no vomiting and no nausea. has some mild abdominal pain today. he had a total of 859 ml UF with PD yesterday on all 1.5 %. I saw him during peritoneal dialysis today. He states PD is going well without alarms at night. he had a normal looking BM yesterday. Physical exam Temp Pulse Resp BP SpO2 FiO2 97.3 F 73 20 90/38 95 100 07/07/19 16:00 07/07/19 16:00 07/07/19 16:00 07/07/19 16:00 07/07/19 16:00 06/27 08:00 lying in bed , looks very frail and weak. Abdomen is soft, but tender with palpation He has no LE edema Skin is wrinkled with decreased turgor Awake and alert. Labs: Laboratory Results - last 24 hr 07/07/19 07/07/19 06:31 06:31 WBC 11.8 H RBC 2.57 L Hgb 7.7 L Hct 23 L MCV 90 MCH 30 MCHC 33 RDW 17 H Plt Count 243 MPV 8.5 Neut % (Auto) 80.2 Lymph % (Auto) 6.7 [place] % (Auto) 8.9 Eos % (Auto) 4.1 Baso % (Auto) 0.1 Absolute Neuts (auto) 9.5 H Absolute Lymphs (auto) 0.8 L Absolute Monos (auto) 1.1 H Absolute Eos (auto) 0.5 Absolute Basos (auto) 0.0 Absolute Nucleated RBC 0.0 Nucleated RBC % 0.0 Sodium 134 L Potassium 4.2 Chloride 92 L Carbon Dioxide 26 Anion Gap 16 H BUN 75 H Creatinine 13.09 H Est GFR ( Amer) 4.4 Est GFR (Non-Af Amer) 3.7 BUN/Creatinine Ratio 5.7 L Glucose 99 Calcium 8.5 L Magnesium 2.4 Medications: Acetaminophen (Tylenol Tab*) 650 mg PO Q6H PRN PRN Reason: PAIN - MILD Last Admin: 07/07/19 08:09 Dose: 650 mg Albuterol/Ipratropium (Duoneb (Albuterol 2.5 Mg/Ipratropium 0.5 Mg)) 1 neb INH [id number] AWAKE PRN PRN Reason: sob/wheexing Amiodarone HCl (Cordarone Tab*) 200 mg PO BID [facility] Last Admin: 07/07/19 08:08 Dose: 200 mg Artificial Tears (Lacrilube Oint*) 1 applic LEFT EYE Q4H PRN PRN Reason: DRY EYE Aspirin (Aspirin Ec Tab*) 81 mg PO DAILY [facility] Last Admin: 07/07/19 08:08 Dose: 81 mg Iron Sucrose 200 mg/ Sodium (Chloride) 110 mls @ 440 mls/hr IVPB DAILY [facility] Stop: 07/08/19 09:14 Last Admin: 07/07/19 08:08 Dose: 440 mls/hr Mupirocin (Bactroban 2 % Oint*) 1 applic TOPICAL DAILY [facility] Last Admin: 07/07/19 08:08 Dose: Not Given Pantoprazole Sodium (Protonix Tab*) 40 mg PO BID [facility] Last Admin: 07/07/19 08:08 Dose: 40 mg Trazodone HCl (Desyrel Tab*) 50 mg PO BEDTIME PRN PRN Reason: SLEEP Last Admin: 07/06/19 21:14 Dose: 50 mg Assessment and Plan: Very nice 83-year-old patient with end-stage kidney disease on peritoneal dialysis, readmitted with acute and severe anemia secondary to GI bleed. So far he had a very difficult hospitalization with a NSTEMI due to demand ischemia. History of atrial fibrillation on anticoagulation. which was stopped due to GI bleed. Subsequently he developed an acute embolic stroke with left-side hemineglect ESRD due to HTN Peritoneal dialysis going without complications. I saw the patient during maintenance peritoneal dialysis today. Todays prescription is unchanged : 12 hours, 1 hour and I have dwell time, will 1.5%. Volume status: volume depleted Hypotension: due to volume depletion. He is not on any blood pressure medications. Moderate aortic stenosis - most likely not contributing to his hypotension Status post non-STEMI due to a hemoglobin of 5.4. Troponin peaked at 11.3. Echo showed a ejection fraction of 55-60% and mid apical anteroseptal hypokinesis. Acute anemia secondary to recurrent GI bleed. Iron deficiency. Started on IV iron. . He also has anemia of end-stage kidney disease.whe iron stores are repleted , we should start epo Atrial fibrillation. . Rate controlled Status post acute embolic stroke. Left-side deficit. Right sided pleural effusion on admission. s/p thoracocenthesis
[2019-07-07] MEDS: traZODone TAB* 50 MG TAB PO PRN (22:01)
[2019-07-08 06:24] LABS: ABS Eosinophils 0.5 10^3/ul (0-0.6); ABS Lymphocytes 0.6 10^3/ul (1.0-4.8); ABS Monocytes 1.1 10^3/ul (0-0.8); ABS Neutrophils 9.9 10^3/ul (1.5-7.7); Eosinophil % 3.8 %; Hematocrit 22 % (42-52); Hemoglobin 7.5 g/dL (14.0-18.0); Lymphocyte % 5.1 %; Mean Corpuscular HGB Conc 34 g/dL (31-36); Mean Corpuscular Hemoglobin 31 pg (27-31); Mean Corpuscular Volume 91 fL (80-94); Mean Platelet Volume 8.7 fL (7.4-10.4); Nucleated Red Blood Cells % 0.1; Platelet Count 237 10^3/uL (150-450); Red Blood Count 2.44 10^6 /uL (4.18-5.48); Red Cell Distribution Width 17 % (10-15); White Blood Count 12.1 10^3/uL (3.5-10.8)
[2019-07-08 06:43] LABS: BUN/Creatinine Ratio 5.9 (8-20); Calcium 8.5 mg/dL (8.6-10.3); EGFR African American 4.4 (>60); EGFR Non-African American 3.7 (>60); Potassium 4.1 mmol/L (3.5-5.0)
[2019-07-08] MEDS: Iron Sucrose* 200 MG in NS 0.9% 100 ML* 100 ML IVPB SCH (08:34)
[2019-07-08] MEDS: Pantoprazole TAB * 40 MG TAB PO SCH ×2 (08:34→20:14)
[2019-07-08] MEDS: Aspirin EC TAB* 81 MG TAB.EC PO SCH (08:34)
[2019-07-08] MEDS: Amiodarone TAB* 200 MG PO SCH ×2 (08:34→20:14)
[2019-07-08] MEDS: Acetaminophen TAB* 325 MG PO PRN ×2 (08:47→20:14)
[2019-07-08] MEDS ORDERED: Clindamycin 600 MG/D5W BAG(*) 600 MG/50 ML BAG IV ONE (11:00)
[2019-07-08] MEDS: Mupirocin 2% OINT* TUBE TOPICAL SCH (11:56)
[2019-07-08] MEDS ORDERED: Heparin(*) 1000 UNIT/ML 10 ML VIAL CATH LAB IV ONE (13:02)
[2019-07-08] MEDS ORDERED: Lidocaine 1% INJ* 10 MG/ML 30 ML SDV ONE (13:02)
[2019-07-08] MEDS ORDERED: fentaNYL* 50 MCG/ML 2 ML VIAL (100 MCG VIAL) ONE (13:02)
[2019-07-08] MEDS ORDERED: Heparin 2 UNITS/ML IVPREMIX* 1,000 ML IV ONE (13:02)
[2019-07-08] MEDS ORDERED: Midazolam* 1 MG/ML 5 ML VIAL (5 MG) ONE (13:02)
--- NOTE | 2019-07-08 13:47 | PN ---
Subjective Date of Service: 07/08/19 Interval History: Patient feels well today. Patient has been having a small amount of tingling in his LUE. Patient denies F/C, N/V, abdominal pain, diarrhea, or other pain. Patient is still on board with the plan for TDC today. Family History: Unchanged from Admission Social History: Unchanged from Admission Past Medical History: Unchanged from Admission Objective Active Medications: Acetaminophen (Tylenol Tab*) 650 mg PO Q6H PRN PRN Reason: PAIN - MILD Last Admin: 07/08/19 08:47 Dose: 650 mg Albuterol/Ipratropium (Duoneb (Albuterol 2.5 Mg/Ipratropium 0.5 Mg)) 1 neb INH [id number] AWAKE PRN PRN Reason: sob/wheexing Amiodarone HCl (Cordarone Tab*) 200 mg PO BID [facility] Last Admin: 07/08/19 08:34 Dose: 200 mg Artificial Tears (Lacrilube Oint*) 1 applic LEFT EYE Q4H PRN PRN Reason: DRY EYE Aspirin (Aspirin Ec Tab*) 81 mg PO DAILY [facility] Last Admin: 07/08/19 08:34 Dose: 81 mg Mupirocin (Bactroban 2 % Oint*) 1 applic TOPICAL DAILY [facility] Last Admin: 07/08/19 11:56 Dose: Not Given Pantoprazole Sodium (Protonix Tab*) 40 mg PO BID [facility] Last Admin: 07/08/19 08:34 Dose: 40 mg Trazodone HCl (Desyrel Tab*) 50 mg PO BEDTIME PRN PRN Reason: SLEEP Last Admin: 07/07/19 22:01 Dose: 50 mg Vital Signs - 8 hr 07/08/19 07/08/19 07/08/19 07:22 08:00 11:32 Temperature 98.3 F 98.7 F Pulse Rate 88 79 Respiratory 16 18 16 Rate Blood Pressure 98/38 86/41 (mmHg) O2 Sat by Pulse 94 94 Oximetry Oxygen Devices in Use Now: None Appearance: Patient is an 83yo male who appears stated age and is sitting in the bed in NAD. Eyes: No Scleral Icterus, PERRLA Ears/Nose/Mouth/Throat: NL Teeth, Lips, Gums, Clear Oropharnyx, Mucous Membranes Moist Neck: NL Appearance and Movements; NL JVP, Trachea Midline Respiratory: Symmetrical Chest Expansion and Respiratory Effort, Clear to Auscultation Cardiovascular: NL Sounds; No Murmurs; No JVD, RRR, No Edema Abdominal: NL Sounds; No Tenderness; No Distention, No Hepatosplenomegaly Lymphatic: No Cervical Adenopathy Extremities: No Edema, No Clubbing, Cyanosis Skin: No Rash or Ulcers, No Nodules or Sclerosis Neurological: Alert and Oriented x 3, NL Sensation, - - Left arm and leg weakness unchanged. Result Diagrams: 07/08/19 05:46 07/08/19 05:46 Additional Lab and Data: Laboratory Tests 07/02/19 07/02/19 07/03/19 06:24 15:28 05:26 ESR > 120 H Glucose 87 Calcium 8.4 L Magnesium 2.0 Iron < 20 L TIBC 130 L Transferrin 93 L TSH 3.55 Microbiology and Other Data: Microbiology 06/27/19 09:17 Blood Line Aerobic Blood Culture - Final No Growth Day 5 06/27/19 09:17 Blood Line Anaerobic Blood Culture - Final No Growth Day 5 06/26/19 11:48 Pleural Fluid Gram Stain - Final 06/26/19 11:48 Pleural Fluid Body Fluid Culture - Final No Growth Day 4 06/26/19 10:55 Nasal Nasal Screen MRSA (PCR) - Final Mrsa Not Detected 06/26/19 05:14 Nasal Nasal Screen MRSA (PCR) - Final Mrsa Not Detected 06/26/19 00:14 Stool Stool Occult Blood (YUAN) - Final Assess/Plan/Problems-Billing Assessment: 83 yo male PMH ESRD on peritoneal dialysis since December, HTN, pAfib, travel provoked PE, recent GIB (antral nodules) with severe anemia (now off a/c), p/w hgb 5. Course complicated by hypoxic respiratory failure (s/p 1.8L thoracentesis ), NSTEMI (trop peaked) and acute CVA with left sided neglect, homonymous hemianopsia, LUE > LLE weakness. s/p EGD with negative biopsy. Had lived alone, will need tunneled dialysis cath, an intermittent HD chair and SNF. - Patient Problems (1) Acute respiratory failure with hypoxia Current Visit: Yes Status: Acute Code(s): J96.01 - ACUTE RESPIRATORY FAILURE WITH HYPOXIA SNOMED Code(s): 72997929 Comment: - Resolved - In setting of right> left pleural effusion and anemia. - Wean O2 as tolerated, now on RA. - CXR on 07/01 with similar effusions. - Plan is to switch to HD instead of PD to assist with volume control. He is s/ p therapeutic thora on 06/25. - s/p 3 days of CFTX and azithromycin from 06/25-06/27 for concern for PNA (also had leukocytosis, improved) No ongoing symptoms of PNA (2) CVA (cerebral vascular accident) Current Visit: Yes Status: Acute Priority: High Code(s): I63.9 - CEREBRAL INFARCTION, UNSPECIFIED SNOMED Code(s): 405414796 Comment: - Very high risk for anticoagulation per GI. - Continue aspirin only for now. - May never be able to resume full AC, but should be evaluated on an ongoing basis due to very high CHADS-Vasc of 6 - With LVO, not candidate for tPa or Thrombectomy. (3) NSTEMI (non-ST elevated myocardial infarction) Current Visit: No Status: Acute Code(s): I21.4 - NON-ST ELEVATION (NSTEMI) MYOCARDIAL INFARCTION SNOMED Code(s): 87961542 Comment: - Continue aspirin, statin, BB. - ECHO 06/28: EF 50-55% moderate - New WMA. (4) Pleural effusion Current Visit: Yes Status: Acute Priority: Medium Code(s): J90 - PLEURAL EFFUSION, NOT ELSEWHERE CLASSIFIED SNOMED Code(s): 49567769 Comment: - Exudative per elevated pleural fluid LDH above 2/3 ULN. - Cytology, gram stain and culture negative - Unclear cause - May also be related to PNA (5) Acute blood loss anemia Current Visit: No Status: Acute Priority: Medium Code(s): D62 - ACUTE POSTHEMORRHAGIC ANEMIA SNOMED Code(s): 643753714 Comment: - UGIB, appreciate GI recs, has had three EGDs this month - Received 3 U PRBCs during this hospitalization (and 3 more last admission + 1 FFP) - PPI BID - Avoid NSAIDS. - Iron deficient, with no infection, start IV Iron, may need EPO with HD treatments - Slight decrease continuing. Continue to monitor. (6) Atrial flutter Current Visit: No Status: Acute Code(s): I48.92 - UNSPECIFIED ATRIAL FLUTTER SNOMED Code(s): 1113148 Comment: - AC has been held since early June in setting of recurrent GIB - Appreciate cardiology recs. - Continue Amiodarone 200mg BID. - Replete K>4, Mg >2 prn. - Continue telemetry. - Stop metoprolol and monitor for hypotension and possible rebound Afib (7) ESRD (end stage renal disease) Current Visit: No Status: Acute Priority: Medium Code(s): N18.6 - END STAGE RENAL DISEASE SNOMED Code(s): 71480653 Comment: -on PD since dec 2018 -Switching to HD. Plan for tunneled dialysis cath today before PMRU. Due to left -sided weakness and neglect he is unable to handle PD by himself. - HepC neg, other hepatitis screen pending - ANCA and WALTER negative - Cret and Urea slowly increasing. This is still WNL per Nephro (8) HTN (hypertension) Current Visit: No Status: Acute Code(s): I10 - ESSENTIAL (PRIMARY) HYPERTENSION SNOMED Code(s): 21955063 Comment: - Continue metoprolol - Normotensive (9) History of pulmonary embolism Current Visit: No Status: Acute Code(s): Z86.711 - PERSONAL HISTORY OF PULMONARY EMBOLISM SNOMED Code(s): 263165476 Comment: - A/C held as above. - History of one travel provoked PE in 2013. (10) Hyperlipidemia Current Visit: No Status: Acute Code(s): E78.5 - HYPERLIPIDEMIA, UNSPECIFIED SNOMED Code(s): 25569422 Comment: -continue statin (11) DVT prophylaxis Current Visit: No Status: Acute Priority: Low Code(s): Z29.9 - ENCOUNTER FOR PROPHYLACTIC MEASURES, UNSPECIFIED SNOMED Code(s): 697856580 Comment: -SCDs -chemoprophylaxis contraindicated in setting of anemia (12) Full code status Current Visit: No Status: Acute Code(s): Z78.9 - OTHER SPECIFIED HEALTH STATUS SNOMED Code(s): 334940596 Status and Disposition: inpatient, PMRU tomorrow.
--- NOTE | 2019-07-08 14:35 | OP ---
Operative Report - Blank - Operative Report Date of Operation: 07/08/19 Note: Procedure Note Tunneled HD Catheter placement Note: Performed by Dr. Beka Perez, [facility] Nephrology 07/08/2019 Left Internal Jugular Tunneled Hemodialysis Catheter Placement Note: Procedure indication: ESRD, needs Hemodialysis superintendent terminal Access. Consent was obtained, in chart. Patient understands risks, benefits, alternatives and wants to proceed. Rt IJV patency was checked by US, thrombosed, as he had Rt IJ TDC last year for months, so Lt IJV patency was checked by US, patent. Following strict hand hygiene and standard sterile precautions, a full sterile attire for myself and all personnel involved in the procedure, including a gown , cap, face mask with an eye shield, and double sterile gloves. The procedure started with 2 ID time out after marking the new proposed venotomy site. Patient was put in Trendelenburg position. Vascular US was used during the procedure. Left Neck and Chest were prepped with 2% Chlorhexidine, and the surgical field was surrounded by sterile surgical towels. A sterile full body drape was placed to cover the patient from head to toe. Left IJ was chosen. Under real time US guidance the Rt IJV was accessed by a 21-G needle, then a 0.018 micro wire was threaded through the 21-G needle into the vein and the 21- G needle was pulled out, leaving the micro wire in, confirmed in the IJ-SVC by Fluoro, then a 4-Fr sheath and inner stylet were passed over the micro wire into the vein. Both, the micro wire and the inner stylet were removed and the 4- Fr sheath was kept in place. Then, a 0.035 Amplatz wire was passed through the 4 -Fr sheath into the central circulation, confirmed by Fluoro in the Rt Atrium. Skin near the venotomy was nicked using # 11 Blade and extended to 0.5 cm long, then was dilated using a curved Jacqui. Bleeding was controlled by pressure over the dilated venotomy site. A 23 cm GlidePath TDC was chosen. The proposed tunnel & exit site were numbed thoroughly with 10 cc of 1% Lidocaine w/o Epi. The exit site was created using # 11 Blade and extended to 0.5 cm long. Exit was dissected bluntly using a curved Jacqui. A blunt tunneler was bent and used to pull the GlidePath TDC from the exit site to the venotomy site and was placed just behind the 5-Fr sheath Sequential dilatation of the venotomy using 12 then 14 Fr the 16 Fr dilator and peel away sheath after the 5-Fr sheath was removed. Dilator and wire were removed and the 19 cm GlidePath TDC was fed through the peel away sheath that was peel away carefully. Tip of TDC Catheter seen under Fluoro at the Cavo- atrial junction to Rt Atrium Both ports checked for flow and draw and both worked very well then flushed again with saline and locked with 1:100 in each port. Caps were applied over both ports. The catheter was secured and tethered in place using 2-0 Proline sutures at the exit site. A retention suture was placed using 2-0 Proline too as he was oozing from the exit site. The venotomy site was repaired using 3-0 Vicryl. Complications: None Estimated Bleeding: < 5cc Will start outpatient HD tomorrow Fluoro Time: 0.8 min IV Contrast: Zero Radiation Exposure: 18 mGy IVF NS 250 cc. Pre Op Meds: Clindamycin 600 mg IVPB pre Op. Fentanyl: 25 Mcg Versed: 0.25 mg
--- NOTE | 2019-07-08 17:51 | PN ---
Progress Note - Progress Note Date of Service: 07/08/19 - Nephrology follow up Note: Chief complaint: End-stage renal disease previously on peritoneal dialysis. History of present illness: Denies any significant changes since yesterday. He did have though a new LIJ tunneled catheter placed for HD. Appetite is still low, he does not have abdominal pain, nausea or vomiting. He was up in the chair today, and has been working with PT. expects to be transferred to the rehab unit tomorrow am. ROS: as above. In addition he denies, chest pain, palpitations or dyspnea. He states that stools have been normal in color. Physical exam Temp Pulse Resp BP SpO2 FiO2 98.5 F 71 16 91/43 95 100 07/08/19 15:51 07/08/19 15:51 07/08/19 15:51 07/08/19 15:51 07/08/19 15:51 06/27 08:00 Lying in bed, looks very frail and weak. Abdomen is soft, but tender with palpation especially in the epigastrum. No rebound. He has no LE edema Skin is wrinkled with decreased turgor Awake and alert. Meds: Acetaminophen (Tylenol Tab*) 650 mg PO Q6H PRN PRN Reason: PAIN - MILD Last Admin: 07/08/19 08:47 Dose: 650 mg Albuterol/Ipratropium (Duoneb (Albuterol 2.5 Mg/Ipratropium 0.5 Mg)) 1 neb INH [id number] AWAKE PRN PRN Reason: sob/wheexing Amiodarone HCl (Cordarone Tab*) 200 mg PO BID [facility] Last Admin: 07/08/19 08:34 Dose: 200 mg Artificial Tears (Lacrilube Oint*) 1 applic LEFT EYE Q4H PRN PRN Reason: DRY EYE Aspirin (Aspirin Ec Tab*) 81 mg PO DAILY [facility] Last Admin: 07/08/19 08:34 Dose: 81 mg Mupirocin (Bactroban 2 % Oint*) 1 applic TOPICAL DAILY [facility] Last Admin: 07/08/19 11:56 Dose: Not Given Pantoprazole Sodium (Protonix Tab*) 40 mg PO BID [facility] Last Admin: 07/08/19 08:34 Dose: 40 mg Trazodone HCl (Desyrel Tab*) 50 mg PO BEDTIME PRN PRN Reason: SLEEP Last Admin: 07/07/19 22:01 Dose: 50 mg Abnormal Lab Results 07/08/19 07/08/19 05:46 05:46 WBC 12.1 H RBC 2.44 L Hgb 7.5 L Hct 22 L MCV 91 MCH 31 MCHC 34 RDW 17 H Plt Count 237 MPV 8.7 Neut % (Auto) 81.4 Lymph % (Auto) 5.1 Grundy % (Auto) 9.4 Eos % (Auto) 3.8 Baso % (Auto) 0.3 Absolute Neuts (auto) 9.9 H Absolute Lymphs (auto) 0.6 L Absolute Monos (auto) 1.1 H Absolute Eos (auto) 0.5 Absolute Basos (auto) 0.0 Absolute Nucleated RBC 0.0 Nucleated RBC % 0.1 Sodium 134 L Potassium 4.1 Chloride 93 L Carbon Dioxide 25 Anion Gap 16 H BUN 77 H Creatinine 13.13 H Est GFR ( Amer) 4.4 Est GFR (Non-Af Amer) 3.7 BUN/Creatinine Ratio 5.9 L Glucose 97 Calcium 8.5 L Assessment and Plan: Very nice 83-year-old patient with end-stage kidney disease on peritoneal dialysis, readmitted with acute and severe anemia secondary to GI bleed. So far he had a very difficult hospitalization with a NSTEMI due to demand ischemia. History of atrial fibrillation on anticoagulation. which was stopped due to GI bleed. Subsequently he developed an acute embolic stroke with left-side hemineglect ESRD due to HTN No need for dialysis today, as he is not volume overloaded and acid base and electrolytes are in balance. switching to HD because of recent stroke . plan id for transfer to the rehab unit and HD as op at [facility]. Volume status: volume depleted Hypotension: due to volume depletion. He is not on any blood pressure medications. Moderate aortic stenosis - most likely not contributing to his hypotension Status post non-STEMI due to demand ischemia 2/2 severe anemia. Maintained LVEF. Acute anemia secondary to recurrent GI bleed. Iron deficiency. Started on IV iron. He also has anemia of end-stage kidney disease. when iron stores are repleted , we should start epo Atrial fibrillation. . Rate controlled Status post acute embolic stroke. Left-side neglect. Right sided pleural effusion on admission. s/p thoracocenthesis
--- NOTE | 2019-07-08 19:23 | DS ---
CC: Dr. Villatoro * DISCHARGE SUMMARY: DATE OF ADMISSION: 06/26/19 DATE OF DISCHARGE: 07/08/19 PRIMARY CARE PROVIDER: Dr. Villatoro. MY ATTENDING WHILE IN THE HOSPITAL: Dr. Sherry Polanco.* (DICTATED BY OSVALDO MARX) PRIMARY DISCHARGE DIAGNOSES: 1. Acute gastrointestinal bleed due to gastric ulcer. 2. Acute embolic cerebrovascular accident and the right posterior cerebral artery infarct. 3. Pleural effusion related to peritoneal dialysis. 4. Acute hypoxic respiratory failure related to pleural effusion and possible pneumonia. 5. Non-ST elevation myocardial infarction possibly related to demand from severe acute blood loss anemia, conversion from peritoneal to hemodialysis. SECONDARY DISCHARGE DIAGNOSES: 1. Atrial fibrillation/flutter. 2. History of provoked pulmonary embolism. 3. Hypertension. 4. Anemia of chronic disease. 5. Chronic kidney disease. 6. Iron deficiency anemia. 7. Dyslipidemia. 8. 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 STUDIES DONE WHILE IN THE HOSPITAL: Chest x-ray from 06/25/19 read as large right pleural effusion present on previous exams, small left pleural effusion, bibasilar atelectasis versus consolidation. Transthoracic echocardiogram from 06/26/19 read as left ventricular systolic function in lower limits of normal, hypokinesis and mid apical anteroseptal myocardium, left atrium mildly dilated and mitral valve mild regurgitation, findings consistent with mild stenosis, there is mild regurgitation, tricuspid valve mild regurgitation, pulmonary artery systolic pressure increased to 39 mmHg. Compared to previous exam, aortic stenosis stable, mild regurgitation has progressed, EF is slightly decreased. Chest x-ray from 06/26/19 read as decreased right pleural effusion, left lower lobe infiltrate, pathology specimen for pleural fluid read as negative for malignant cells. Brain CT from 06/28/19 read as no acute intracranial abnormality. Head CTA from 06/28/19 read as focal occlusion of the right posterior cerebral artery. Chest CT from 06/28/19 read as large right and moderate left pleural effusions with adjacent compressive atelectasis, patchy airspace and ground glass in the perihilar left upper lobe ascites. Chest x-ray from 06/29/19 read as bibasilar atelectasis versus consolidation with improved aeration of the left perihilar lung, pulmonary interstitial edema , bilateral pleural effusions. Repeat transthoracic echocardiogram shows no PFO, biopsy of the gastric shows mild chronic gastritis, H. pylori not reported. EGD showed nodularity of the antrum, unclear etiology, diffuse oozing from multiple foci within the nodularity with adequate hemostasis achieved. Chest x-ray from 07/02/19 read as pulmonary interstitial edema bilateral right greater than left pleural effusions, bibasilar atelectasis versus consolidation. Brain CT from 07/03/19 read as subacute infarct to right CROZE CUTTER territory with gyriform high attenuation which may reflect cortical laminar necrosis versus preserved campo matter without my parenchymal hemorrhage. MEDICATIONS AT DISCHARGE: 1. Rosuvastatin 5 mg p.o. daily. 2. Tylenol 325 mg p.o. q.6 hours as needed. 3. DuoNeb 1 neb inhalation q.4 hours as needed. 4. Amiodarone 200 mg p.o. b.i.d. 5. Artificial tears 1 application left eye q.4 hours as needed. 6. Aspirin 81 mg p.o. daily. 7. Mupirocin 1 application topically daily. 8. Pantoprazole 40 mg p.o. b.i.d. 9. Trazodone 50 mg p.o. at bedtime. New medications on discharge: 1. Tylenol. 2. DuoNeb. 3. Amiodarone. 4. Artificial tears. 5. Aspirin. 6. Mupirocin. 7. Pantoprazole. 8. Trazodone. 9. Rosuvastatin. Medications discontinued at discharge: 1. Metoprolol succinate 50 mg p.o. daily. 2. Diltiazem 180 mg p.o. daily. 3. Pantoprazole 40 mg p.o. b.i.d. HOSPITAL COURSE: This is a brief summary of the patient's presentation and a brief history of the patient's long hospitalization. For more details, please see the history and physical from Dr. Chrissie Seaman, on 06/26/19 and the complete medical record. In brief, the patient is an 83-year-old male with past medical history significant for the above, who presented to the emergency department for second time in a month of June. He was initially admitted with a gastric ulcer and I believe at that time his Coumadin was stopped. He was noted to be in normal sinus rhythm at discharge. Two days before his admission , he became lightheaded and had melena. He came back in to the hospital and was found to have a hemoglobin of 5 and was admitted to the hospital. The patient also had a severely elevated troponin which peaked at 11 two days after his admission. The patient had no chest pain, severe NSTEMI related to hypoperfusion from his severe anemia. The patient initially was in the ICU and the patient's metoprolol was initially held and then stopped. The patient had a recurrence of atrial flutter/fibrillation. The patient had a thoracentesis which had beta-shankar decreased due to hypotension and this was eventually stopped soon before patient went into atrial fibrillation. The patient on the night of 06/27/19 and to 06/28/19 was noted to have new left-sided weakness, stroke alert was called and the patient had a brain CT and head CTA with a large vessel occlusion as above; however, given the patient's GI bleeding, the patient was not eligible for any tPA or thrombectomy. The patient was seen in consultation by Dr. Chico Hedrick. The patient had a negative PFO on echocardiogram. The patient was started on amiodarone drip which was able to be transferred to oral amiodarone after rhythm control was achieved due to inability to anticoagulate due to GI bleeding. The patient had an EGD as above , which showed nodularity, which he believe was high risk for ongoing bleeding regardless of intervention. The patient's hemoglobin was able to be stabilized and he was restarted on his aspirin. After this, the patient's hemoglobin began to trend down again. The patient's last transfusion was on 06/30/19. The patient during his hospitalization became anuric and the plan was for the patient to be transitioned from peritoneal dialysis to hemodialysis with placement of a tunneled dialysis catheter on 07/08/19. The patient remained stable for the last several days of hospitalization and regaining some of the strength in his left side. The patient was accepted to [facility], pending dialysis catheter placement on 07/07/19 which was performed without difficulty. The patient was stable and amenable for discharge on 07/08/19 for discharge to [facility] on 07/09/19. DISCHARGE PLAN BY PROBLEM: 1. Acute blood loss anemia, gastrointestinal bleed, anemia of chronic disease, iron deficiency anemia, anemia related to chronic kidney disease. The patient has multiple reasons to be anemic. The patient is likely still losing small amounts of blood from his nodular antrum. The patient's hemoglobin is currently 7.5. The patient is asymptomatic. The patient should be transfused when symptomatic or below 7. At this point, the patient has received 1 full gram of IV iron and should likely get erythropoietin infusions per Nephrology with his new hemodialysis. 2. Acute embolic CVA. This was related to being off anticoagulation for GI bleeding. The patient is at high risk for rebleeding per Gastroenterology. Antibiotics will not be continued. This favors a rhythm control strategy and the patient will be continued on amiodarone. The patient should follow up with Cardiology regarding when a dose reduction on his amiodarone would be appropriate from an initial dose of 200 b.i.d. to possibly 200 daily. Other patient's antihypertensives have been stopped as his blood pressure runs slightly low generally. 3. NSTEMI likely related to demand ischemia from severe anemia. The patient's troponin peaked at 11 and then began to trend down. The patient is currently chest pain free. The patient has been continued on aspirin for secondary prevention of SC despite GI bleeding. The patient's lipid profile within normal limits. 4. End-stage renal disease. The patient will be transferred from peritoneal dialysis to hemodialysis after his ordeal. The patient is now anuric and hemodialysis is likely the best option for him and this will be coordinated through Nephrology and his first session will be on 07/09/19 after he is down at PMRU. 5. Hypotension. The patient's blood pressure has been consistently moderately hypotensive and the patient has not been symptomatic. See above discussion about amiodarone. The patient should be monitored closely. The patient's hemoglobin goal has currently been set at 7; however, if he becomes symptoms, transfusion should be considered as would erythropoietin injections. 6. Pulmonary embolism. The patient as above is unable to be anticoagulated. DISPOSITION: PMRU. CONDITION: Fair. TIME SPENT: Approximately 60 minutes was spent on discharge of this patient, 30 of which was spent [id number] with the patient obtaining history and physical and discussing treatment plan. OSVALDO MARX [id number]/[facility] #: [id number] [facility]
[2019-07-09] MEDS: traZODone TAB* 50 MG TAB PO PRN (00:32)
[2019-07-09] MEDS: Acetaminophen TAB* 325 MG PO PRN (02:53)
[2019-07-09 05:35] VITALS: BP 99/47
[2019-07-09 06:36] LABS: ABS Eosinophils 0.5 10^3/ul (0-0.6); ABS Lymphocytes 0.7 10^3/ul (1.0-4.8); ABS Monocytes 1.1 10^3/ul (0-0.8); ABS Neutrophils 8.2 10^3/ul (1.5-7.7); Eosinophil % 4.6 %; Hematocrit 21 % (42-52); Hemoglobin 7.1 g/dL (14.0-18.0); Mean Corpuscular HGB Conc 34 g/dL (31-36); Mean Corpuscular Hemoglobin 31 pg (27-31); Mean Corpuscular Volume 91 fL (80-94); Mean Platelet Volume 8.1 fL (7.4-10.4); Platelet Count 213 10^3/uL (150-450); Red Cell Distribution Width 17 % (10-15); White Blood Count 10.6 10^3/uL (3.5-10.8)
[2019-07-09 06:53] LABS: BUN/Creatinine Ratio 6.3 (8-20); Calcium 8.4 mg/dL (8.6-10.3); EGFR African American 3.8 (>60); EGFR Non-African American 3.2 (>60); Potassium 4.5 mmol/L (3.5-5.0)
[2019-07-09] MEDS: Aspirin EC TAB* 81 MG TAB.EC PO SCH (08:14)
[2019-07-09] MEDS: Amiodarone TAB* 200 MG PO SCH (08:14)
[2019-07-09] MEDS: Pantoprazole TAB * 40 MG TAB PO SCH (08:14)
[2019-07-09] MEDS: Mupirocin 2% OINT* TUBE TOPICAL SCH (08:16)
== END 2019-07-09 08:20 | DRG 377 ==
LOC: ED 22:48 → MEDTELE 06-26 00:55 → ICU 06-26 09:59 → MEDTELE 07-01 10:35
PROVIDERS: ADMIT Internal Medicine; ATTEND Hospitalist
PROC: 30233N1 Transfusion of Nonautologous Red Blood Cells into Peripheral Vein, Percutaneous Approach (ICD-10-PCS; 2019-06-26)
PROC: 3E1M39Z Irrigation of Peritoneal Cavity using Dialysate, Percutaneous Approach (ICD-10-PCS; 2019-06-26)
PROC: 0W993ZZ Drainage of Right Pleural Cavity, Percutaneous Approach (ICD-10-PCS; 2019-06-26)
PROC: 5A09357 Assistance with Respiratory Ventilation, Less than 24 Consecutive Hours, Continuous Positive Airway Pressure (ICD-10-PCS; 2019-06-27)
PROC: 0DB68ZX Excision of Stomach, Via Natural or Artificial Opening Endoscopic, Diagnostic (ICD-10-PCS; 2019-06-30)
PROC: 0W3P8ZZ Control Bleeding in Gastrointestinal Tract, Via Natural or Artificial Opening Endoscopic (ICD-10-PCS; 2019-06-30)
PROC: 02HV33Z Insertion of Infusion Device into Superior Vena Cava, Percutaneous Approach (ICD-10-PCS; 2019-07-08)
PROC: 5A1D70Z Performance of Urinary Filtration, Intermittent, Less than 6 Hours Per Day (ICD-10-PCS; 2019-07-08)
PROC: 0JH63XZ Insertion of Tunneled Vascular Access Device into Chest Subcutaneous Tissue and Fascia, Percutaneous Approach (ICD-10-PCS; principal; 2019-07-08 12:45)
DX: K25.4 Chronic or unspecified gastric ulcer with hemorrhage (principal); N18.6 End stage renal disease; J96.01 Acute respiratory failure with hypoxia; I21.A1 Myocardial infarction type 2; I63.531 Cerebral infarction due to unspecified occlusion or stenosis of right posterior cerebral artery; J18.9 Pneumonia, unspecified organism; I63.431 Cerebral infarction due to embolism of right posterior cerebral artery; D62 Acute posthemorrhagic anemia; I48.92 Unspecified atrial flutter; J90 Pleural effusion, not elsewhere classified; R41.4 Neurologic neglect syndrome; G81.94 Hemiplegia, unspecified affecting left nondominant side; I13.2 Hypertensive heart and chronic kidney disease with heart failure and with stage 5 chronic kidney disease, or end stage renal disease; I50.30 Unspecified diastolic (congestive) heart failure; N17.9 Acute kidney failure, unspecified; E78.5 Hyperlipidemia, unspecified; I95.9 Hypotension, unspecified; I08.1 Rheumatic disorders of both mitral and tricuspid valves; R29.708 NIHSS score 8; K59.00 Constipation, unspecified; R62.7 Adult failure to thrive; Z68.23 Body mass index [BMI] 23.0-23.9, adult; I48.0 Paroxysmal atrial fibrillation; K31.89 Other diseases of stomach and duodenum; H53.47 Heteronymous bilateral field defects; D63.1 Anemia in chronic kidney disease; D50.9 Iron deficiency anemia, unspecified; K29.50 Unspecified chronic gastritis without bleeding; E86.9 Volume depletion, unspecified; R41.842 Visuospatial deficit; Z99.2 Dependence on renal dialysis; Z86.711 Personal history of pulmonary embolism; Z87.11 Personal history of peptic ulcer disease; Z79.82 Long term (current) use of aspirin
CPT/HCPCS: 36415; 36558; 36600; 70450; 70496; 70498; 71045; 71046; 71250; 76937; 80048; 80053; 80061; 82270; 82607; 82728; 82803; 82945; 83516; 83540; 83550; 83605; 83615; 83735; 83880; 84100; 84157; 84443; 84484; 85014; 85018; 85025; 85027; 85610; 85652; 85730; 86038; 86140; 86704; 86803; 86850; 86900; 86901; 86922; 87040; 87070; 87205; 87641; 88112; 88305; 88313; 88342; 89051; 90945; 93005; 93306; 93308; 94660; 96365; 97112; 99156; 99157; 99284; A9270-GY; C1750; C1769; C8929; G0257; J0282; J0456; J0696; J1610; J1644; J1756; J1940; J2250; J2270; J3010; J3475; J3480; J3490; P9040; Q9967

== ENCOUNTER 2019-10-03 22:50 | Inpatient (IN) ==
[2019-10-04] MEDS ORDERED: HYDROcodone/ACETAMIN 5/325 mg TAB PO ONE (00:39)
[2019-10-04] MEDS ORDERED: Magnesium Hydroxide LIQ 30 ML UDC PO PRN (00:41)
[2019-10-04] MEDS ORDERED: Senna TAB 8.6 mg TAB PO PRN (00:41)
[2019-10-04] MEDS ORDERED: HYDROcodone/ACETAMIN 5/325 mg TAB PO PRN (00:57)
[2019-10-04 01:23] LABS: Hematocrit 17 % (42-52); Mean Corpuscular HGB Conc 34 g/dL (31-36); Mean Corpuscular Hemoglobin 29 pg (27-31); Mean Corpuscular Volume 85 fL (80-94); Mean Platelet Volume 7.5 fL (7.4-10.4); Platelet Count 252 10^3/uL (150-450); Red Blood Count 2.02 10^6 /uL (4.18-5.48); Red Cell Distribution Width 18 % (10-15); White Blood Count 9.3 10^3/uL (3.5-10.8)
[2019-10-04 01:31] LABS: Hemoglobin 5.8 g/dL (14.0-18.0)
[2019-10-04 01:33] LABS: BUN/Creatinine Ratio 8.4 (8-20); Calcium 8.6 mg/dL (8.6-10.3); EGFR Non-African American 5.8 (>60); Magnesium 1.6 mg/dL (1.9-2.7); Potassium 4.2 mmol/L (3.5-5.0)
[2019-10-04] MEDS: HYDROcodone/ACETAMIN 5/325 mg TAB PO PRN ×2 (04:41→15:54)
[2019-10-04] MEDS ORDERED: Heparin 5000 UNITS/ML VIAL(*) 1 ml vial SUBCUT SCH ×2 (06:00→09:00)
[2019-10-04 08:51] LABS: Hematocrit 21 % (42-52); Hemoglobin 7.2 g/dL (14.0-18.0); Mean Corpuscular HGB Conc 34 g/dL (31-36); Mean Corpuscular Hemoglobin 29 pg (27-31); Mean Corpuscular Volume 85 fL (80-94); Mean Platelet Volume 7.5 fL (7.4-10.4); Platelet Count 234 10^3/uL (150-450); Red Cell Distribution Width 18 % (10-15); White Blood Count 8.7 10^3/uL (3.5-10.8)
[2019-10-04] MEDS: Aspirin EC 81 mg TAB.EC (enteric coated) PO SCH (09:01)
[2019-10-04] MEDS ORDERED: LORazepam 1 mg TAB (*) PO PRN (13:26)
[2019-10-04] MEDS ORDERED: Atropine 1% (ORAL/SL) 15 ML BTL SL PRN (13:26)
[2019-10-04] MEDS: Morphine ORAL CONCENTRATE 5 MG/0.25 ML ORAL.SYRIN SL PRN ×2 (18:41→22:18)
[2019-10-05] MEDS: Aspirin EC 81 mg TAB.EC (enteric coated) PO SCH (08:20)
[2019-10-05] MEDS ORDERED: Morphine ORAL CONCENTRATE 5 MG/0.25 ML ORAL.SYRIN SL PRN (09:23)
[2019-10-05 19:26] VITALS: BP 106/46
== END 2019-10-05 13:35 | disposition hospice, home (50) | DRG 393 ==
LOC: ED 22:50 → MED 10-04 00:55
PROVIDERS: ADMIT Internal Medicine; ATTEND Internal Medicine